=== PATIENT | female | born 1930 | race Caucasian/White ===

== ENCOUNTER → 2016-05-29 | Outpatient (CLI) | payer MEDICARE, BC ==
--- NOTE | 2016-05-29 14:15 | CT ---
EXAMINATION TYPE: CT brain wo con DATE OF EXAM: 05/29/2016 1:27 PM COMPARISON: Prior CT brain 08 June 2014 HISTORY: Headache CT DLP: 1012.70 mGycm Automated exposure control for dose reduction was used. FINDINGS: There is no acute intracranial hemorrhage, mass effect, or midline shift identified. The ventricles and sulci are within normal limits in size. Cortical atrophy is present. Periventricular white matter demyelination changes suspected. The globes are intact and the visualized sinuses are remarkable for inflammatory change in the mastoid air cells as on previous exam on the left than right.. Postop weston nges noted to the temporal bone on the right, metallic implant present on the left. Cerebral vascular calcifications are present. IMPRESSION: No acute intracranial hemorrhage, mass effect, or midline shift is seen. Postop changes, additional f indings above.
== END | disposition home or self-care (01) ==
LOC: RADCTMAIN 12:45
PROVIDERS: ATTEND Family Medicine
DX: R51 Headache (principal)
CPT/HCPCS: 70450

== ENCOUNTER → 2016-07-04 | Outpatient (CLI) | payer MEDICARE, BC ==
--- NOTE | 2016-07-04 15:02 | US ---
EXAMINATION TYPE: US venous doppler duplex LE BI DATE OF EXAM: 07/04/2016 2:46 PM COMPARISON: US in PACS CLINICAL HISTORY: I82.40 DVT,I10 HTN,. 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
--- NOTE | 2016-07-04 15:19 | US ---
EXAMINATION TYPE: US carotid duplex BILAT DATE OF EXAM: 07/04/2016 2:28 PM COMPARISON: NONE CLINICAL HISTORY: I82.40 DVT,I10 HTN,. HTN, headaches EXAM MEASUREMENTS: RIGHT: Peak Systolic Velocity (PSV) cm/sec ----- Right CCA: 63.3 ----- Right ICA: 72.1 ----- Right ECA: 50.3 ICA/CCA ratio: 1.1 RIGHT: End Diastole cm/sec ----- Right CCA: 8.4 ----- Right ICA: 15.4 ----- Right ECA: 0.0 LEFT: Peak Systolic Velocity (PSV) cm/sec ----- Left CCA: 62.5 ----- Left ICA: 99.6 ----- Left ECA: 67.7 ICA/CCA ratio: 1.6 LEFT: End Diastole cm/sec ----- Left CCA: 18.0 ----- Left ICA: 22.6 ----- Left ECA: 0.0 VERTEBRALS (direction of flow): Right Vertebral: Antegrade Left Vertebral: Antegrade No significant stenosis seen bilaterally Incidental finding right thyroid nodule 1.4 cm IMPRESSION: No evidence for hemodynamically significant stenosis. Criteria for Assigning % of Stenosis / Diameter reduction (Estimation based on the indirect measurements of the internal carotid artery velocities (ICA PSV). 1. Normal (no stenosis)=ICA PSV < 125 cm/s: ratio < 2.0: ICA EDV<40 cm/s. 2. Less than 50% stenosis=ICA PSV < 125 cm/s: ratio < 2.0: ICA EDV<40 cm/s. 3. 50 to 69% stenosis=ICA PSV of 125 to 230 cm/s: ration 2.0 ? 4.0: ICA EDV 40-100 cm/s. 4. Greater than 70% stenosis to near occlusion= ICA PSV > 230 cm/s: ratio > 4.0: ICA EDV > 100 cm/s. 5. Near occlusion= ICA PSV velocities may be low or undetectable: variable ratio and ICA EDV. 6. Total occlusion=unable to detect flow.
== END | disposition home or self-care (01) ==
LOC: RADUSWWP 14:06
PROVIDERS: ATTEND Family Medicine
DX: I82.403 Acute embolism and thrombosis of unspecified deep veins of lower extremity, bilateral (principal); I10 Essential (primary) hypertension
CPT/HCPCS: 93880; 93970

== ENCOUNTER → 2017-04-23 | Outpatient (CLI) | payer MEDICARE, BC ==
[2017-04-23 18:52] LABS: Hemoglobin A1C 6.6 % (4.0-6.0)
== END | disposition home or self-care (01) ==
LOC: LABWHC1 11:22
PROVIDERS: ATTEND Family Medicine
DX: M79.662 Pain in left lower leg (principal); E11.9 Type 2 diabetes mellitus without complications; I10 Essential (primary) hypertension
CPT/HCPCS: 36415; 83036; 85379

== ENCOUNTER → 2017-04-26 | Outpatient (CLI) | payer MEDICARE, BC ==
--- NOTE | 2017-04-26 18:23 | US ---
EXAMINATION TYPE: US venous doppler duplex LE DATE OF EXAM: 04/26/2017 6:12 PM COMPARISON: NONE CLINICAL HISTORY: R79.9 Elevated D Dimer. h/o PE 10+ years ago, no symptoms per patient SIDE PERFORMED: Bilateral TECHNIQUE: The lower extremity deep venous system is examined utilizing real time linear array sonog javed with graded compression, doppler sonography and color-flow sonography. VESSELS IMAGED: External Iliac Vein (EIV) Common Femoral Vein Deep Femoral Vein Greater Saphenous Vein * Femoral Vein Popliteal Vein Small Saphenous Vein * Proximal Calf Veins (* superficial vessels) Right Leg: Appears negative for DVT Left Leg: Appears negative for DVT IMPRESSION: Normal exam. No evidence of deep venous thrombosis in both legs.
== END | disposition home or self-care (01) ==
LOC: RADUSMAIN 17:43
PROVIDERS: ATTEND Family Medicine
DX: R79.9 Abnormal finding of blood chemistry, unspecified (principal)
CPT/HCPCS: 93970

== ENCOUNTER → 2017-12-18 | Outpatient (CLI) | payer MEDICARE, BC ==
[2017-12-18 13:25] LABS: Blood Urea Nitrogen 11 mg/dL (7-17)
--- NOTE | 2017-12-18 14:43 | CT ---
EXAMINATION TYPE: CT brain wo/w con DATE OF EXAM: 12/18/2017 COMPARISON: 05/29/2016 HISTORY: Headaches to top of head and unsteady gait x 5-[address] DLP: 2106.3mGycm CONTRAST: CT scan of the head is performed without and with IV Contrast, patient injected with 100 mL of Isovue M300. Unenhanced followed by contrast enhanced CT of the brain is submitted for evaluation. The ventricles are midline. Mild generalized atrophic changes noted. There is no evidence for intracranial hemorrha ge or extra-axial collection. No mass effects are identified. Visualized bony calvarium is intact. Contrast is administered and no enhancing lesions are detected. No pathologic enhancement is identi fied. Metallic implant left scalp region. Bilateral mastoidectomy changes identified. If symptoms pe rsist consider MRI. IMPRESSION: No acute intracranial process. No pathologic enhancement seen.
== END | disposition home or self-care (01) ==
LOC: RADCTMAIN 12:16
PROVIDERS: ATTEND Family Medicine
DX: G44.009 Cluster headache syndrome, unspecified, not intractable (principal); R26.89 Other abnormalities of gait and mobility
CPT/HCPCS: 82565; 84520; 70470; 36415; Q9967

== ENCOUNTER 2018-05-13 11:29 | Emergency (ER) | payer MEDICARE, BC ==
[2018-05-13 11:51] VITALS: RESP 18
--- NOTE | 2018-05-13 14:44 | ED ---
Fall HPI - General Chief Complaint: Fall Stated Complaint: fall, head/neck pain Time Seen by Provider: 05/13/18 14:16 Source: patient, RN notes reviewed, old records reviewed Mode of arrival: wheelchair - History of Present Illness Initial Comments: Patient is a in 87-year-old female who presents emergency department today with head and neck pain 2 days after fall. Patient states that she was not ambulating with her walker going to the bathroom. Patient reports that she tripped and fell. During that time she had multiple abrasions and skin tears and bruising over her arms and legs. Her main complaint today is that headache. She has a history of a cochlear implant which caused her to have balance issues. Patient states that she cannot receive an MRI due to this. - Related Data Home Medications Medication Instructions Recorded Confirmed Cholecalciferol [Vitamin D3] 1,000 mg PO DAILY 06/08/14 05/13/18 Magnesium Gluconate [Magonate] 500 mg PO DAILY 06/08/14 05/13/18 Omeprazole [PriLOSEC] 20 mg PO AC-BRKFST 06/08/14 05/13/18 ALPRAZolam 1 mg PO TID PRN 12/07/14 05/13/18 Docusate Sodium [Dulcolax Stool 100 mg PO DAILY PRN 12/07/14 05/13/18 Softener] 24 Hour Allergy (Unknown Otc) 1 tab PO DAILY PRN 05/13/18 05/13/18 Ibuprofen [Motrin] 800 mg PO TID 05/13/18 05/13/18 Levothyroxine Sodium [Synthroid] 25 mcg PO DAILY 05/13/18 05/13/18 Losartan-Hctz 50-12.5 mg [Hyzaar 1 tab PO DAILY 05/13/18 05/13/18 50-12.5] Previous Rx's Medication Instructions Recorded HYDROcodone/APAP 5-325MG [[place] 1 tab PO Q6HR PRN #15 tab 05/13/18 5-325] Allergies Allergy/AdvReac Type Severity Reaction Status Date / Time acetaminophen [From Vicodin] Allergy Hallucinati Verified 05/13/18 11:51 ons ciprofloxacin [From Cipro] Allergy Rash/Hives Verified 05/13/18 14:46 ciprofloxacin HCl Allergy Rash/Hives Verified 05/13/18 14:46 [From Cipro] doxycycline Allergy Rash/Hives Verified 05/13/18 14:46 esomeprazole magnesium Allergy Rash/Hives Verified 05/13/18 11:51 [From Vimovo] fluconazole Allergy Rash/Hives Verified 05/13/18 14:46 hydrocodone bitartrate Allergy Hallucinati Verified 05/13/18 14:46 [From Vicodin] ons naproxen [From Vimovo] Allergy Rash/Hives Verified 05/13/18 11:51 penicillin G Allergy Rash/Hives Verified 05/13/18 14:46 sulfamethoxazole Allergy Rash/Hives Verified 05/13/18 14:46 [From Bactrim] tramadol Allergy Unknown Verified 05/13/18 14:46 trimethoprim [From Bactrim] Allergy Rash/Hives Verified 05/13/18 14:46 levofloxacin [From Levaquin] AdvReac Itching Verified 05/13/18 14:46 mirabegron [From Myrbetriq] AdvReac HEADACHE/BLURRED Verified 05/13/18 14:46 VISION oxybutynin AdvReac BLURRED Verified 05/13/18 14:46 VISION Review of Systems ROS Statement: Those systems with pertinent positive or pertinent negative responses have been documented in the HPI. ROS Other: All systems not noted in ROS Statement are negative. Past Medical History Past Medical History: GERD/Reflux, Hearing Disorder / Deafness, Hypertension, Osteoarthritis (OA), Pulmonary Embolus (PE), Thyroid Disorder Additional Past Medical History / Comment(s): 12-07-14 admitted to [facility] with c/o chest pain. other hx:hiatal hernia, PE AFTER KNEE SX, INCONT OF URINE, DEAF RT EAR [place] LT WEARS HEARING AID,UPPER DENTURE AND WEARS GLASSES TO READ. History of Any Multi-Drug Resistant Organisms: None Reported Past Surgical History: Cholecystectomy, Heart Catheterization, Hysterectomy, Joint Replacement, Tonsillectomy Additional Past Surgical History / Comment(s): cochlear implant, acoustic tumor removed rt ear 2010, egd/colonoscopy, rt carpal tunnel, rt knee replacement, SHAMEKA CATARACTS Past Anesthesia/Blood Transfusion Reactions: No Reported Reaction Past Psychological History: Anxiety Smoking Status: Never smoker Past Alcohol Use History: Rare Past Drug Use History: None Reported - Past Family History Father Family Medical History: Dementia Mother Family Medical History: Cancer (Lung), Hypertension Additional Family Medical History / Comment(s): from lung cancer Brother(s) Family Medical History: Diabetes Mellitus Sister(s) Family Medical History: Cancer (Lung) Son(s) Family Medical History: Coronary Artery Disease (CAD) (age 39 with mitral valve repair) General Exam - General Exam Comments Initial Comments: Alert and oriented 87-year-old female. Patient appears in no significant distress. Limitations: physical limitation Head exam: Present: atraumatic, normocephalic, normal inspection Eye exam: Present: normal appearance, PERRL, EOMI. Absent: scleral icterus, conjunctival injection, periorbital swelling ENT exam: Present: normal exam, mucous membranes moist Neck exam: Present: normal inspection, tenderness (Patient is posterior spinal tenderness.). Absent: meningismus, lymphadenopathy Respiratory exam: Present: normal lung sounds bilaterally. Absent: respiratory distress, wheezes, rales, rhonchi, stridor Cardiovascular Exam: Present: regular rate, normal rhythm, normal heart sounds. Absent: systolic murmur, diastolic murmur, rubs, gallop, clicks GI/Abdominal exam: Present: soft, normal bowel sounds. Absent: distended, tenderness, guarding, rebound, rigid Extremities exam: Present: normal inspection, full ROM, normal capillary refill. Absent: tenderness, pedal edema, joint swelling, calf tenderness Back exam: Present: normal inspection Neurological exam: Present: alert, oriented X3, CN II-XII intact Psychiatric exam: Present: normal affect, normal mood Skin exam: Present: warm, dry, intact, normal color. Absent: rash Course Vital Signs 05/13/18 05/13/18 05/13/18 11:48 14:44 16:22 Temperature 97.9 F Pulse Rate 70 68 72 Respiratory 18 18 18 Rate Blood Pressure 150/81 146/72 159/63 O2 Sat by Pulse 98 96 95 Oximetry 05/13/18 17:05 Temperature 98.5 F Pulse Rate 68 Respiratory 18 Rate Blood Pressure 140/69 O2 Sat by Pulse 95 Oximetry Medical Decision Making - Medical Decision Making Patient is a 87-year-old female who presents emergency Department today with complaints of head and neck pain 2 days after fall. Patient has multiple superficial abrasions and bruising of her arm but full range of motion strep days. She is in including without difficulty. Patient has no neurological deficits. CT brain and C-spine is completed. There is evidence of a stable C2 fracture. After this was discovered Patient was placed in c-collar. Patient was started on IV fluids basic lab was obtained. Initially they had to transfer the Patient to [facility]. However did discuss the case with Dr. Stevens [facility]. He states that he is comfortable managing the Patient if she has no neurological deficits and otherwise is well. Patient will be discharged with prescription for pain medication and discharged with a perception for [place] collar. I discussed that she should remain in our cervical collar until receiving the [place] collar. Discussed prompt follow-up with Dr. Stevens. Patient agrees to treatment plan will comply. - Lab Data Result diagrams: 05/13/18 16:14 05/13/18 16:14 Lab Results 05/13/18 05/13/18 Range/Units 16:14 16:14 WBC 9.8 (3.8-10.6) k/uL RBC 4.70 (3.80-5.40) m/uL Hgb 13.0 (11.4-16.0) gm/dL Hct 41.1 (34.0-46.0) % MCV 87.4 (80.0-100.0) fL MCH 27.6 (25.0-35.0) pg MCHC 31.6 (31.0-37.0) g/dL RDW 15.0 (11.5-15.5) % Plt Count 199 (150-450) k/uL Neutrophils % 78 % Lymphocytes % 16 % Monocytes % 4 % Eosinophils % 1 % Basophils % 0 % Neutrophils # 7.6 (1.3-7.7) k/uL Lymphocytes # 1.6 (1.0-4.8) k/uL Monocytes # 0.4 (0-1.0) k/uL Eosinophils # 0.1 (0-0.7) k/uL Basophils # 0.0 (0-0.2) k/uL Sodium 134 L (137-145) mmol/L Potassium 3.7 (3.5-5.1) mmol/L Chloride 97 L (98-107) mmol/L Carbon Dioxide 34 H (22-30) mmol/L Anion Gap 3 mmol/L BUN 15 (7-17) mg/dL Creatinine 0.48 L (0.52-1.04) mg/dL Est GFR (CKD-EPI)AfAm >90 (>60 ml/min/1.73 sqM) Est GFR (CKD-EPI)NonAf 90 (>60 ml/min/1.73 sqM) Glucose 100 H (74-99) mg/dL Calcium 9.2 (8.4-10.2) mg/dL - Radiology Data Radiology results: report reviewed CT shows age-related atrophy and chronic small vessel ischemic change without acute intracranial process. CT of the C-spine shows isolated fracture noted to involve the right body of the C2 segment at its junction with transverse process. There is extension into the superior articular process. Fracture is considered stable. Disposition Clinical Impression: C2 cervical fracture Disposition: HOME SELF-CARE Condition: Good Instructions (If sedation given, give patient instructions): Cervical Fracture (ED), Soft Cervical Collar (ED) Additional Instructions: Follow-up with Dr. Stevens within the next 1-2 days. It is supposed to follow-up with Mercedes to get the cervical spine collar. Patient should take the pain medication as prescribed. Patient needs to be wearing a [place] collar at all times. Prescriptions: HYDROcodone/APAP 5-325MG [[place] 5-325] 1 tab PO Q6HR PRN #15 tab PRN Reason: Pain Is patient prescribed a controlled substance at d/c from ED?: Yes If prescribed controlled substance>3 days was MAPS reviewed?: Prescribed <3 Days If opioid is for acute pain is fill amount 7 days or less?: Yes If Rx opioid, was Start Talking consent form obtained?: Yes Referrals: Juan A Dey DO [Primary Care Provider] - 1-2 days Basilia Stevens DO [Doctor of Osteopathic Medicine] - 1-2 days Time of Disposition: 16:53
--- NOTE | 2018-05-13 15:33 | CT ---
EXAMINATION TYPE: CT brain steve wo con DATE OF EXAM: 05/13/2018 COMPARISON: 12/18/2017 HISTORY: Fall on 05/11/18. right posterior injury CT DLP: 1292.[address] of the brain was performed. The ventricles, basal cisterns and sulci overlying the cerebral convexities demonstrate mild enlargem ent. There is no evidence for intracranial hemorrhage or sulcal effacement. There is decreased attenuatio n about the periventricular white matter and deep white matter of both cerebral hemispheres, compatib le with chronic small vessel ischemia. No mass effects are seen. If symptoms persist consider MRI. Osseous calvarium is intact. IMPRESSION: 1. Age related atrophic and chronic small vessel ischemic change without acute intracranial process seen at this time. CT Cervical Spine: Unenhanced CT of the cervical spine was performed with bone and soft tissue window settings submitte d. Coronal and sagittal reconstruction is obtained. There is an isolated fracture noted to involve the right body of the C2 segment at its junction with the transverse process. There is extension into the superior articular process. Fracture is considere d stable. No additional fractures are identified. Minimal anterolisthesis of C4 on C5 measuring 2 mm may be related to severe degenerative change of the apophyseal joints. Degenerative change noted at C 5-6 moderate to severe degree with spondylosis. IMPRESSION: 1. There is an isolated fracture noted to involve the right body of the C2 segment at its junction w ith the transverse process. There is extension into the superior articular process. Fracture is consi dered stable. ER physician notified via telephone.
[2018-05-13] MEDS ORDERED: MORPHINE SULFATE 4 MG/ML SYRINGE IVP ONE (15:49)
[2018-05-13] MEDS ORDERED: SODIUM CHLORIDE 0.9% 1,000 ML IV ONE (15:50)
[2018-05-13] MEDS ORDERED: SODIUM CHLORIDE 0.9% 1,000 ML IV SCH (16:00)
[2018-05-13 16:28] LABS: Basophils % (A) 0 %; Eosinophils # (A) 0.1 k/uL (0-0.7); Eosinophils % (A) 1 %; HCT 41.1 % (34.0-46.0); Lymphocytes # (A) 1.6 k/uL (1.0-4.8); Lymphocytes % (A) 16 %; MCH 27.6 pg (25.0-35.0); MCHC 31.6 g/dL (31.0-37.0); MCV 87.4 fL (80.0-100.0); Mean Platelet Volume 6.7; Monocytes # (A) 0.4 k/uL (0-1.0); Monocytes % (A) 4 %; Neutrophils # (A) 7.6 k/uL (1.3-7.7); Neutrophils % (A) 78 %; Platelet Count 199 k/uL (150-450); WBC 9.8 k/uL (3.8-10.6)
[2018-05-13 16:37] LABS: Anion Gap 3 mmol/L; Blood Urea Nitrogen 15 mg/dL (7-17); Calcium 9.2 mg/dL (8.4-10.2); Carbon Dioxide 34 mmol/L (22-30); Chloride 97 mmol/L (98-107); Glucose 100 mg/dL (74-99); Potassium 3.7 mmol/L (3.5-5.1); Sodium 134 mmol/L (137-145)
[2018-05-13 17:06] VITALS: BP 140/69; PULSE 68; TEMP 98.5
== END 2018-05-13 17:12 | disposition home or self-care (01) ==
LOC: EC 11:29
DX: S12.100A Unspecified displaced fracture of second cervical vertebra, initial encounter for closed fracture (principal); K21.9 Gastro-esophageal reflux disease without esophagitis; I10 Essential (primary) hypertension; M19.90 Unspecified osteoarthritis, unspecified site; E07.9 Disorder of thyroid, unspecified; H91.90 Unspecified hearing loss, unspecified ear; F41.9 Anxiety disorder, unspecified; Z79.1 Long term (current) use of non-steroidal anti-inflammatories (NSAID); Z86.711 Personal history of pulmonary embolism; Z79.890 Hormone replacement therapy; Z79.899 Other long term (current) drug therapy; Z88.3 Allergy status to other anti-infective agents; Z88.0 Allergy status to penicillin; Z88.1 Allergy status to other antibiotic agents; Z88.2 Allergy status to sulfonamides; Z88.5 Allergy status to narcotic agent; Z88.8 Allergy status to other drugs, medicaments and biological substances; Z88.6 Allergy status to analgesic agent; Z96.651 Presence of right artificial knee joint; W01.0XXA Fall on same level from slipping, tripping and stumbling without subsequent striking against object, initial encounter
CPT/HCPCS: 36415; 80048; 85025; 72125; 70450; 99284; 96374; L0120; J2270

== ENCOUNTER 2018-05-27 13:12 | Emergency (ER) | payer MEDICARE, BC ==
[2018-05-27] MEDS ORDERED: KETOROLAC 30 MG/ML 1 ML VIAL IVP STA (13:29)
[2018-05-27] MEDS ORDERED: FUROSEMIDE 10 MG/ML 2 ML VIAL IV STA (13:30)
--- NOTE | 2018-05-27 13:33 | ED ---
General Adult HPI - General Chief complaint: Arrhythmia/Palpitations Stated complaint: heart concerns Time Seen by Provider: 05/27/18 13:15 Source: patient, RN notes reviewed Mode of arrival: wheelchair Limitations: no limitations - History of Present Illness Initial comments: this is an 87-year-old female who presents to the emergency department because of swollen legs. Patient states her so swollen she is unable to walk on them.patient states she has had some swelling in the past but never to this degree. Patient denies any difficulty breathing or shortness of breath. Patient denies any calf tenderness. Patient denies any chest pain. Patient denied any palpitations. son states that her heart rate was over 100 so they decided to bring her to the emergency department. Patient denies lightheadedness or dizziness. Patient denies any headache patient denies numbness weakness. Patient denies any abdominal pain. Patient denies any recent fever chills or cough per patient denies any vomiting or diarrhea. - Related Data Home Medications Medication Instructions Recorded Confirmed Cholecalciferol [Vitamin D3] 1,000 mg PO DAILY 06/08/14 05/27/18 Magnesium Gluconate [Magonate] 500 mg PO DAILY 06/08/14 05/27/18 Omeprazole [PriLOSEC] 20 mg PO AC-BRKFST 06/08/14 05/27/18 ALPRAZolam 1 mg PO TID PRN 12/07/14 05/27/18 Docusate Sodium [Dulcolax Stool 100 mg PO DAILY PRN 12/07/14 05/27/18 Softener] 24 Hour Allergy (Unknown Otc) 1 tab PO DAILY PRN 05/13/18 05/27/18 Ibuprofen [Motrin] 800 mg PO TID 05/13/18 05/27/18 Levothyroxine Sodium [Synthroid] 25 mcg PO DAILY 05/13/18 05/27/18 Losartan-Hctz 50-12.5 mg [Hyzaar 1 tab PO DAILY 05/13/18 05/27/18 50-12.5] Previous Rx's Medication Instructions Recorded Furosemide [Lasix] 20 mg PO DAILY #7 tab 05/27/18 Allergies Allergy/AdvReac Type Severity Reaction Status Date / Time acetaminophen [From Vicodin] Allergy Hallucinati Verified 05/27/18 13:40 ons ciprofloxacin [From Cipro] Allergy Rash/Hives Verified 05/27/18 13:40 ciprofloxacin HCl Allergy Rash/Hives Verified 05/27/18 13:40 [From Cipro] doxycycline Allergy Rash/Hives Verified 05/27/18 13:40 esomeprazole magnesium Allergy Rash/Hives Verified 05/27/18 13:40 [From Vimovo] fluconazole Allergy Rash/Hives Verified 05/27/18 13:40 hydrocodone bitartrate Allergy Hallucinati Verified 05/27/18 13:40 [From Vicodin] ons naproxen [From Vimovo] Allergy Rash/Hives Verified 05/27/18 13:40 penicillin G Allergy Rash/Hives Verified 05/27/18 13:40 sulfamethoxazole Allergy Rash/Hives Verified 05/27/18 13:40 [From Bactrim] tramadol Allergy Unknown Verified 05/27/18 13:40 trimethoprim [From Bactrim] Allergy Rash/Hives Verified 05/27/18 13:40 hydrocodone [From [place]] AdvReac HEADACHE Verified 05/27/18 13:42 levofloxacin [From Levaquin] AdvReac Itching Verified 05/27/18 13:40 mirabegron [From Myrbetriq] AdvReac HEADACHE/BLURRED Verified 05/27/18 13:40 VISION oxybutynin AdvReac BLURRED Verified 05/27/18 13:40 VISION Review of Systems ROS Statement: Those systems with pertinent positive or pertinent negative responses have been documented in the HPI. ROS Other: All systems not noted in ROS Statement are negative. Past Medical History Past Medical History: GERD/Reflux, Hearing Disorder / Deafness, Hypertension, Osteoarthritis (OA), Pulmonary Embolus (PE), Thyroid Disorder Additional Past Medical History / Comment(s): 12-07-14 admitted to [facility] with c/o chest pain. other hx:hiatal hernia, PE AFTER KNEE SX, INCONT OF URINE, DEAF RT EAR [place] LT WEARS HEARING AID,UPPER DENTURE AND WEARS GLASSES TO READ. History of Any Multi-Drug Resistant Organisms: None Reported Past Surgical History: Cholecystectomy, Heart Catheterization, Hysterectomy, Joint Replacement, Tonsillectomy Additional Past Surgical History / Comment(s): cochlear implant, acoustic tumor removed rt ear 2010, egd/colonoscopy, rt carpal tunnel, rt knee replacement, SHAMEKA CATARACTS Past Anesthesia/Blood Transfusion Reactions: No Reported Reaction Past Psychological History: Anxiety, Depression Smoking Status: Never smoker Past Alcohol Use History: Rare Past Drug Use History: None Reported - Past Family History Father Family Medical History: Dementia Mother Family Medical History: Cancer (Lung), Hypertension Additional Family Medical History / Comment(s): from lung cancer Brother(s) Family Medical History: Diabetes Mellitus Sister(s) Family Medical History: Cancer (Lung) Son(s) Family Medical History: Coronary Artery Disease (CAD) (age 39 with mitral valve repair) General Exam - General Exam Comments Initial Comments: GENERAL: Patient is well-developed and well-nourished. Patient is nontoxic and well- hydrated and is in milddistress. ENT: Neck is soft and supple. No significant lymphadenopathy is noted. Oropharynx is clear. Moist mucous membranes. Neck has full range of motion without eliciting any pain. EYES: The sclera were anicteric and conjunctiva were pink and moist. Extraocular movements were intact and pupils were equal round and reactive to light. Eyelids were unremarkable. PULMONARY: Unlabored respirations. Good breath sounds bilaterally. No audible rales rhonchi or wheezing was noted. CARDIOVASCULAR: patient is tachycardic at about 110 beats a minute ABDOMEN: Soft and nontender with normal bowel sounds. No palpable organomegaly was noted. There is no palpable pulsatile mass. SKIN: Skin is clear with no lesions or rashes and otherwise unremarkable. NEUROLOGIC: Patient is alert and oriented x3. Cranial nerves II through XII are grossly intact. Motor and sensory are also intact. Normal speech, volume and content. Symmetrical smile. MUSCULOSKELETAL: Normal extremities with adequate strength and full range of motion. 2+ edema bilaterally LYMPHATICS: No significant lymphadenopathy is noted PSYCHIATRIC: Normal psychiatric evaluation. Limitations: no limitations Course Vital Signs 05/27/18 05/27/18 13:15 14:00 Temperature 97.6 F Pulse Rate 110 H 89 Respiratory 22 15 Rate Blood Pressure 130/65 128/55 O2 Sat by Pulse 96 90 L Oximetry Medical Decision Making - Medical Decision Making EKG shows sinus rhythm at 94 bpm IL interval 176 QRS is 94 QT interval 354 QTC is 442. Is a poor quality EKG but there are no obvious ST segment elevations. I offered admission to the patient patient stated she wanted to go home and try the water pill at home first. I spoke with Dr. Dey he wanted the patient started on Lasix 20 mg by mouth and would follow patient up later this week. - Lab Data Result diagrams: 05/27/18 13:43 05/27/18 13:43 Lab Results 05/27/18 05/27/18 05/27/18 Range/Units 13:43 13:43 13:43 WBC 9.9 (3.8-10.6) k/uL RBC 4.67 (3.80-5.40) m/uL Hgb 13.1 (11.4-16.0) gm/dL Hct 41.1 (34.0-46.0) % MCV 87.9 (80.0-100.0) fL MCH 28.1 (25.0-35.0) pg MCHC 31.9 (31.0-37.0) g/dL RDW 15.0 (11.5-15.5) % Plt Count 362 (150-450) k/uL Neutrophils % 80 % Lymphocytes % 13 % Monocytes % 4 % Eosinophils % 1 % Basophils % 1 % Neutrophils # 7.9 H (1.3-7.7) k/uL Lymphocytes # 1.3 (1.0-4.8) k/uL Monocytes # 0.4 (0-1.0) k/uL Eosinophils # 0.1 (0-0.7) k/uL Basophils # 0.1 (0-0.2) k/uL PT (9.0-12.0) sec INR (<1.2) APTT (22.0-30.0) sec Sodium 136 L (137-145) mmol/L Potassium 3.6 (3.5-5.1) mmol/L Chloride 96 L (98-107) mmol/L Carbon Dioxide 32 H (22-30) mmol/L Anion Gap 8 mmol/L BUN 7 (7-17) mg/dL Creatinine 0.48 L (0.52-1.04) mg/dL Est GFR (CKD-EPI)AfAm >90 (>60 ml/min/1.73 sqM) Est GFR (CKD-EPI)NonAf 90 (>60 ml/min/1.73 sqM) Glucose 111 H (74-99) mg/dL Plasma Lactic Acid Sae[place] 1.4 (0.7-2.0) mmol/L Calcium 9.3 (8.4-10.2) mg/dL Total Bilirubin 1.0 (0.2-1.3) mg/dL AST 43 H (14-36) U/L ALT 45 (9-52) U/L Alkaline Phosphatase 87 (38-126) U/L NT-Pro-B Natriuret Pep pg/mL Total Protein 6.3 (6.3-8.2) g/dL Albumin 3.7 (3.5-5.0) g/dL Urine Color Urine Appearance (Clear) Urine pH (5.0-8.0) Ur Specific [place] (1.001-1.035) Urine Protein (Negative) Urine Glucose (UA) (Negative) Urine Ketones (Negative) Urine Blood (Negative) Urine Nitrite (Negative) Urine Bilirubin (Negative) Urine Urobilinogen (<2.0) mg/dL Ur Leukocyte Esterase (Negative) 05/27/18 05/27/18 05/27/18 Range/Units 13:43 13:43 14:17 WBC (3.8-10.6) k/uL RBC (3.80-5.40) m/uL Hgb (11.4-16.0) gm/dL Hct (34.0-46.0) % MCV (80.0-100.0) fL MCH (25.0-35.0) pg MCHC (31.0-37.0) g/dL RDW (11.5-15.5) % Plt Count (150-450) k/uL Neutrophils % % Lymphocytes % % Monocytes % % Eosinophils % % Basophils % % Neutrophils # (1.3-7.7) k/uL Lymphocytes # (1.0-4.8) k/uL Monocytes # (0-1.0) k/uL Eosinophils # (0-0.7) k/uL Basophils # (0-0.2) k/uL PT 10.3 (9.0-12.0) sec INR 1.0 (<1.2) APTT 21.8 L (22.0-30.0) sec Sodium (137-145) mmol/L Potassium (3.5-5.1) mmol/L Chloride (98-107) mmol/L Carbon Dioxide (22-30) mmol/L Anion Gap mmol/L BUN (7-17) mg/dL Creatinine (0.52-1.04) mg/dL Est GFR (CKD-EPI)AfAm (>60 ml/min/1.73 sqM) Est GFR (CKD-EPI)NonAf (>60 ml/min/1.73 sqM) Glucose (74-99) mg/dL Plasma Lactic Acid Sae[place] (0.7-2.0) mmol/L Calcium (8.4-10.2) mg/dL Total Bilirubin (0.2-1.3) mg/dL AST (14-36) U/L ALT (9-52) U/L Alkaline Phosphatase (38-126) U/L NT-Pro-B Natriuret Pep 136 pg/mL Total Protein (6.3-8.2) g/dL Albumin (3.5-5.0) g/dL Urine Color Light Yellow Urine Appearance Clear (Clear) Urine pH 8.0 (5.0-8.0) Ur Specific [place] 1.003 (1.001-1.035) Urine Protein Negative (Negative) Urine Glucose (UA) Negative (Negative) Urine Ketones Negative (Negative) Urine Blood Negative (Negative) Urine Nitrite Negative (Negative) Urine Bilirubin Negative (Negative) Urine Urobilinogen <2.0 (<2.0) mg/dL Ur Leukocyte Esterase Negative (Negative) Disposition Clinical Impression: Pedal edema Disposition: HOME SELF-CARE Condition: Good Instructions (If sedation given, give patient instructions): Edema (ED) Prescriptions: Furosemide [Lasix] 20 mg PO DAILY #7 tab Is patient prescribed a controlled substance at d/c from ED?: No Time of Disposition: 15:52
[2018-05-27 14:10] LABS: Basophils # (A) 0.1 k/uL (0-0.2); Basophils % (A) 1 %; Eosinophils # (A) 0.1 k/uL (0-0.7); Eosinophils % (A) 1 %; HCT 41.1 % (34.0-46.0); HGB 13.1 gm/dL (11.4-16.0); Lymphocytes # (A) 1.3 k/uL (1.0-4.8); Lymphocytes % (A) 13 %; MCH 28.1 pg (25.0-35.0); MCHC 31.9 g/dL (31.0-37.0); MCV 87.9 fL (80.0-100.0); Mean Platelet Volume 7.2; Monocytes # (A) 0.4 k/uL (0-1.0); Monocytes % (A) 4 %; Neutrophils # (A) 7.9 k/uL (1.3-7.7); Neutrophils % (A) 80 %; Platelet Count 362 k/uL (150-450); RBC 4.67 m/uL (3.80-5.40); WBC 9.9 k/uL (3.8-10.6)
[2018-05-27 14:19] LABS: ALT 45 U/L (9-52); AST 43 U/L (14-36); Albumin 3.7 g/dL (3.5-5.0); Alkaline Phosphatase 87 U/L (38-126); Anion Gap 8 mmol/L; Blood Urea Nitrogen 7 mg/dL (7-17); Calcium 9.3 mg/dL (8.4-10.2); Carbon Dioxide 32 mmol/L (22-30); Chloride 96 mmol/L (98-107); Glucose 111 mg/dL (74-99); Potassium 3.6 mmol/L (3.5-5.1); Sodium 136 mmol/L (137-145); Total Protein 6.3 g/dL (6.3-8.2)
[2018-05-27 14:26] LABS: Partial Thromboplastin Time 21.8 sec (22.0-30.0); Prothrombin Time 10.3 sec (9.0-12.0)
[2018-05-27 14:36] LABS: Appearance,Urine Clear (Clear); Bilirubin,Urine Negative (Negative); Blood,Urine Negative (Negative); Color,Urine Light Yellow; Glucose,Urine (UA) Negative (Negative); Ketones,Urine Negative (Negative); Leukocyte Esterase,Urine Negative (Negative); Nitrite,Urine Negative (Negative); Protein,Urine Negative (Negative); Specific Gravity,Urine 1.003 (1.001-1.035); Urobilinogen,Urine <2.0 mg/dL (<2.0)
--- NOTE | 2018-05-27 15:10 | XR ---
EXAMINATION TYPE: XR chest 2V DATE OF EXAM: 05/27/2018 COMPARISON: 12/07/2014 HISTORY: Intermittent chest pain and arrhythmia. Lower extremity swelling. TECHNIQUE: Frontal and lateral views of the chest are obtained. FINDINGS: Cardiomediastinal silhouette is again enlarged but similar to the prior. No focal consolid ation, pleural effusion or pneumothorax. No pulmonary vascular congestion. There is generalized osseo us demineralization and mild degenerative changes of the thoracic spine. IMPRESSION: Stable cardiomegaly with no acute cardiopulmonary process.
[2018-05-27] MEDS ORDERED: MORPHINE SULFATE 2 MG/ML SYRINGE IVP STA (15:47)
[2018-05-27 16:30] VITALS: RESP 18
[2018-05-27 16:48] VITALS: BP 108/67; PULSE 80; TEMP 97.8
== END 2018-05-27 16:50 | disposition home or self-care (01) ==
LOC: EC 13:12
DX: R60.0 Localized edema (principal); K21.9 Gastro-esophageal reflux disease without esophagitis; I10 Essential (primary) hypertension; M19.90 Unspecified osteoarthritis, unspecified site; E07.9 Disorder of thyroid, unspecified; F41.9 Anxiety disorder, unspecified; F32.9 Major depressive disorder, single episode, unspecified; Z79.890 Hormone replacement therapy; Z79.899 Other long term (current) drug therapy; Z88.6 Allergy status to analgesic agent; Z88.1 Allergy status to other antibiotic agents; Z88.8 Allergy status to other drugs, medicaments and biological substances; Z88.5 Allergy status to narcotic agent; Z88.0 Allergy status to penicillin; Z88.2 Allergy status to sulfonamides; Z96.651 Presence of right artificial knee joint
CPT/HCPCS: 36415; 83880; 80053; 83605; 85025; 85610; 85730; 81003; 87040; 87086; 71046; 99284; 96374; 96375 ×2; J1940; J1885; J2270; 87077; 87186

== ENCOUNTER 2018-07-18 17:46 | Emergency (ER) | payer MEDICARE, BC ==
--- NOTE | 2018-07-18 17:53 | ED ---
Fall HPI - General Stated Complaint: Fall Time Seen by Provider: 07/18/18 17:51 Source: RN notes reviewed, old records reviewed, Caregiver Limitations: no limitations - History of Present Illness Initial Comments: This is an 87-year-old female the ER for evaluation. Patient resents today for evaluation regards to fall. Fall with loss of consciousness. No blood thinners. Patient does have laceration to right sided occiput. Minimal bleeding. Patient complains of mild headache no specific headache now denies any other complaints of pain, no neck pain, no hip pain MD Complaint: fall -: hour(s) Fall From: standing When Fall Occurred: 1 hour [employer] Fall Witnessed: no Place Fall Occurred: home Loss of Consciousness: yes Prolonged Down Time?: no, yes Symptoms Prior to Fall: none Location: head Severity: mild Severity scale (1-10): 2 Context: tripped/slipped Associated Symptoms: denies - Related Data Home Medications Medication Instructions Recorded Confirmed Cholecalciferol [Vitamin D3] 1,000 mg PO DAILY 06/08/14 07/18/18 Magnesium Gluconate [Magonate] 500 mg PO DAILY 06/08/14 07/18/18 Omeprazole [PriLOSEC] 20 mg PO DAILY 06/08/14 07/18/18 ALPRAZolam 1 mg PO TID PRN 12/07/14 07/18/18 Docusate Sodium [Dulcolax Stool 100 mg PO DAILY PRN 12/07/14 07/18/18 Softener] 24 Hour Allergy (Unknown Otc) 1 tab PO DAILY PRN 05/13/18 07/18/18 Ibuprofen [Motrin] 800 mg PO TID 05/13/18 07/18/18 Levothyroxine Sodium [Synthroid] 25 mcg PO DAILY 05/13/18 07/18/18 Losartan-Hctz 50-12.5 mg [Hyzaar 1 tab PO DAILY 05/13/18 07/18/18 50-12.5] Fluconazole [Diflucan] 150 mg PO Q7D 07/18/18 07/18/18 Lidocaine 2% Gel [Xylocaine Jelly 1 applic TOPICAL BID 07/18/18 07/18/18 2%] Vortioxetine Hydrobromide 5 mg PO DAILY 07/18/18 07/18/18 [Trintellix] Previous Rx's Medication Instructions Recorded Furosemide [Lasix] 20 mg PO DAILY #7 tab 05/27/18 Allergies Allergy/AdvReac Type Severity Reaction Status Date / Time acetaminophen [From Vicodin] Allergy Hallucinati Verified 07/18/18 18:19 ons ciprofloxacin [From Cipro] Allergy Rash/Hives Verified 07/18/18 18:19 ciprofloxacin HCl Allergy Rash/Hives Verified 07/18/18 18:19 [From Cipro] doxycycline Allergy Rash/Hives Verified 07/18/18 18:19 esomeprazole magnesium Allergy Rash/Hives Verified 07/18/18 18:19 [From Vimovo] fesoterodine [From Toviaz] Allergy Unknown Verified 07/18/18 18:19 fluconazole Allergy Rash/Hives Verified 07/18/18 18:19 hydrocodone bitartrate Allergy Hallucinati Verified 07/18/18 18:19 [From Vicodin] ons naproxen [From Vimovo] Allergy Rash/Hives Verified 07/18/18 18:19 penicillin G Allergy Rash/Hives Verified 07/18/18 18:19 phenazopyridine Allergy Unknown Verified 07/18/18 18:19 sulfamethoxazole Allergy Rash/Hives Verified 07/18/18 18:19 [From Bactrim] tramadol Allergy Unknown Verified 07/18/18 18:19 trimethoprim [From Bactrim] Allergy Rash/Hives Verified 07/18/18 18:19 hydrocodone [From [place]] AdvReac HEADACHE Verified 07/18/18 18:19 levofloxacin [From Levaquin] AdvReac Itching Verified 07/18/18 18:19 mirabegron [From Myrbetriq] AdvReac HEADACHE/BLURRED Verified 07/18/18 18:19 VISION oxybutynin AdvReac BLURRED Verified 07/18/18 18:19 VISION Review of Systems ROS Statement: Those systems with pertinent positive or pertinent negative responses have been documented in the HPI. ROS Other: All systems not noted in ROS Statement are negative. Past Medical History Past Medical History: GERD/Reflux, Hearing Disorder / Deafness, Hypertension, Osteoarthritis (OA), Pulmonary Embolus (PE), Thyroid Disorder Additional Past Medical History / Comment(s): 12-07-14 admitted to [facility] with c/o chest pain. other hx:hiatal hernia, PE AFTER KNEE SX, INCONT OF URINE, DEAF RT EAR [place] LT WEARS HEARING AID,UPPER DENTURE AND WEARS GLASSES TO READ. History of Any Multi-Drug Resistant Organisms: None Reported Past Surgical History: Cholecystectomy, Heart Catheterization, Hysterectomy, Joint Replacement, Tonsillectomy Additional Past Surgical History / Comment(s): cochlear implant, acoustic tumor removed rt ear 2010, egd/colonoscopy, rt carpal tunnel, rt knee replacement, SHAMEKA CATARACTS Past Anesthesia/Blood Transfusion Reactions: No Reported Reaction Past Psychological History: Anxiety, Depression Smoking Status: Never smoker Past Alcohol Use History: Rare Past Drug Use History: None Reported - Past Family History Father Family Medical History: Dementia Mother Family Medical History: Cancer (Lung), Hypertension Additional Family Medical History / Comment(s): from lung cancer Brother(s) Family Medical History: Diabetes Mellitus Sister(s) Family Medical History: Cancer (Lung) Son(s) Family Medical History: Coronary Artery Disease (CAD) (age 39 with mitral valve repair) General Exam General appearance: alert, in no apparent distress Head exam: Present: normocephalic, normal inspection. Absent: atraumatic (Small scalp laceration, right occiput) Eye exam: Present: normal appearance, PERRL, EOMI. Absent: scleral icterus, conjunctival injection, periorbital swelling ENT exam: Present: normal exam, mucous membranes moist Neck exam: Present: normal inspection. Absent: tenderness, meningismus, lymphadenopathy Respiratory exam: Present: normal lung sounds bilaterally. Absent: respiratory distress, wheezes, rales, rhonchi, stridor Cardiovascular Exam: Present: regular rate, normal rhythm, normal heart sounds. Absent: systolic murmur, diastolic murmur, rubs, gallop, clicks GI/Abdominal exam: Present: soft, normal bowel sounds. Absent: distended, tenderness, guarding, rebound, rigid Extremities exam: Present: normal inspection, full ROM, normal capillary refill. Absent: tenderness, pedal edema, joint swelling, calf tenderness Back exam: Present: normal inspection Neurological exam: Present: alert, oriented X3, CN II-XII intact Psychiatric exam: Present: normal affect, normal mood Skin exam: Present: warm, dry, intact, normal color. Absent: rash Course Vital Signs 07/18/18 17:51 Temperature 98.5 F Pulse Rate 82 Respiratory 18 Rate Blood Pressure 111/52 O2 Sat by Pulse 96 Oximetry Procedures - Laceration Laceration #1 Consent Obtained: verbal consent Indication: laceration Site: scalp Size (cm): 5 Description: linear Depth: simple, single layer (Kori) Pre-repair: wound explored, irrigated extensively Type of Sutures: other ([place]) Patient Tolerated Procedure: well Medical Decision Making - Medical Decision Making 60 female the ER status post fall trip and fall. Patient does have scalp laceration repaired with kori. Patient can be discharged home - Radiology Data Radiology results: report reviewed (The brain C-spine negative for acute disease), image reviewed Disposition Clinical Impression: Fall, Laceration of scalp Disposition: HOME SELF-CARE Condition: Good Instructions (If sedation given, give patient instructions): Head Injury (ED), Staple Care (ED) Is patient prescribed a controlled substance at d/c from ED?: No Referrals: Juan A Dey DO [Primary Care Provider] - 1-2 days
[2018-07-18 17:57] VITALS: RESP 18
--- NOTE | 2018-07-18 18:52 | CT ---
EXAMINATION TYPE: CT brain steve maddox DATE OF EXAM: 07/18/2018 COMPARISON: 05/13/2018 HISTORY: Fall today. Right sided head injury. CT DLP: 1395.6 mGycm Automated exposure control for dose reduction was used. TECHNIQUE: CT scan of the head and cervical spine are performed without contrast. FINDINGS: There is metal artifact from surgery on the left temporal bone with implant. There is no mass effect nor midline shift. There is no sign of intracranial hemorrhage. The tail of the left temp oral lobe is limited. Calvarium is intact. There is no evidence of a skull fracture. There is also ri ght temporal bone surgery. Cervical vertebra have normal alignment. There is degenerative disc space narrowing at C5-6 with spur formation. Posterior elements are intact. There is hypertrophic facet arthropathy in the mid cervica l spine. The skull base is intact. IMPRESSION: Cerebral atrophy. No acute intracranial abnormality. No change. Previous surgery. Mild spondylotic changes in the lower cervical spine. No fracture. No change.
[2018-07-18 20:02] VITALS: BP 103/98; PULSE 74; TEMP 98.2
== END 2018-07-18 20:00 | disposition home or self-care (01) ==
LOC: EC 17:46
DX: S01.01XA Laceration without foreign body of scalp, initial encounter (principal); I11.0 Hypertensive heart disease with heart failure; I50.9 Heart failure, unspecified; K21.9 Gastro-esophageal reflux disease without esophagitis; M19.90 Unspecified osteoarthritis, unspecified site; E07.9 Disorder of thyroid, unspecified; F32.9 Major depressive disorder, single episode, unspecified; H91.93 Unspecified hearing loss, bilateral; Z88.0 Allergy status to penicillin; Z88.1 Allergy status to other antibiotic agents; Z88.2 Allergy status to sulfonamides; Z88.3 Allergy status to other anti-infective agents; Z88.5 Allergy status to narcotic agent; Z88.6 Allergy status to analgesic agent; Z88.8 Allergy status to other drugs, medicaments and biological substances; Z79.1 Long term (current) use of non-steroidal anti-inflammatories (NSAID); Z79.890 Hormone replacement therapy; Z79.899 Other long term (current) drug therapy; Z96.21 Cochlear implant status; Z95.818 Presence of other cardiac implants and grafts; Z96.651 Presence of right artificial knee joint; W01.0XXA Fall on same level from slipping, tripping and stumbling without subsequent striking against object, initial encounter; Y92.000 Kitchen of unspecified non-institutional (private) residence as the place of occurrence of the external cause
CPT/HCPCS: 12002; 70450; 72125; 99284

== ENCOUNTER → 2018-07-22 | Outpatient (CLI) | payer MEDICARE, BC ==
--- NOTE | 2018-07-22 16:47 | XR ---
EXAMINATION TYPE: XR Hip Bilateral Complete DATE OF EXAM: 07/22/2018 COMPARISON: 07/20/2014 HISTORY: Right hip pain, left hip pain, frequent falls TECHNIQUE: Bilateral hips are examined in 2 projections each FINDINGS: Left hip: Femoral head articulates with the acetabulum. Joint space narrowing is present. No acute fr actures are evident Right hip: Femoral head articulates with the acetabulum. Joint space is narrowed. No acute fractures evident. IMPRESSION: 1. 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
== END ==
LOC: RADXRMAIN 12:42
PROVIDERS: ATTEND Family Medicine
DX: M16.0 Bilateral primary osteoarthritis of hip (principal)
CPT/HCPCS: 73521

== ENCOUNTER 2018-07-23 09:10 | Emergency (ER) | payer MEDICARE, BC ==
--- NOTE | 2018-07-23 09:36 | ED ---
General Adult HPI - General Chief complaint: Recheck/Abnormal Lab/Rx Stated complaint: Abnormal Labs Time Seen by Provider: 07/23/18 09:18 Source: patient, RN notes reviewed, old records reviewed Mode of arrival: wheelchair Limitations: no limitations - History of Present Illness Initial comments: 87-year-old female presents for evaluation of abnormal outpatient laboratories study. Patient was told that her potassium was low, this was obtained on a b lood draw from yesterday. She has no specific complaints. She states she has had low sodium in the past but has never had any potassium issues. Denies chest pain or dyspnea. Denies fever. Denies vomiting or diarrhea. - Related Data Home Medications Medication Instructions Recorded Confirmed Cholecalciferol [Vitamin D3] 1,000 mg PO DAILY 06/08/14 07/23/18 Magnesium Gluconate [Magonate] 500 mg PO DAILY 06/08/14 07/23/18 Omeprazole [PriLOSEC] 20 mg PO DAILY 06/08/14 07/23/18 ALPRAZolam 1 mg PO TID PRN 12/07/14 07/23/18 Docusate Sodium [Dulcolax Stool 100 mg PO DAILY PRN 12/07/14 07/23/18 Softener] 24 Hour Allergy (Unknown Otc) 1 tab PO DAILY PRN 05/13/18 07/23/18 Ibuprofen [Motrin] 800 mg PO TID 05/13/18 07/23/18 Levothyroxine Sodium [Synthroid] 25 mcg PO DAILY 05/13/18 07/23/18 Losartan-Hctz 50-12.5 mg [Hyzaar 1 tab PO DAILY 05/13/18 07/23/18 50-12.5] Fluconazole [Diflucan] 150 mg PO Q7D 07/18/18 07/23/18 Lidocaine 2% Gel [Xylocaine Jelly 1 applic TOPICAL BID 07/18/18 07/23/18 2%] Vortioxetine Hydrobromide 5 mg PO DAILY 07/18/18 07/23/18 [Trintellix] Previous Rx's Medication Instructions Recorded Furosemide [Lasix] 20 mg PO DAILY #7 tab 05/27/18 Potassium Chloride ER [K-Dur 20] 20 meq PO DAILY #10 tab 07/23/18 Allergies Allergy/AdvReac Type Severity Reaction Status Date / Time acetaminophen [From Vicodin] Allergy Hallucinati Verified 07/23/18 09:45 ons ciprofloxacin [From Cipro] Allergy Rash/Hives Verified 07/23/18 09:45 ciprofloxacin HCl Allergy Rash/Hives Verified 07/23/18 09:45 [From Cipro] doxycycline Allergy Rash/Hives Verified 07/23/18 09:45 esomeprazole magnesium Allergy Rash/Hives Verified 07/23/18 09:45 [From Vimovo] fesoterodine [From Toviaz] Allergy Unknown Verified 07/23/18 09:45 fluconazole Allergy Rash/Hives Verified 07/23/18 09:45 hydrocodone bitartrate Allergy Hallucinati Verified 07/23/18 09:45 [From Vicodin] ons naproxen [From Vimovo] Allergy Rash/Hives Verified 07/23/18 09:45 penicillin G Allergy Rash/Hives Verified 07/23/18 09:45 phenazopyridine Allergy Unknown Verified 07/23/18 09:45 sulfamethoxazole Allergy Rash/Hives Verified 07/23/18 09:45 [From Bactrim] tramadol Allergy Unknown Verified 07/23/18 09:45 trimethoprim [From Bactrim] Allergy Rash/Hives Verified 07/23/18 09:45 hydrocodone [From [place]] AdvReac HEADACHE Verified 07/23/18 09:45 levofloxacin [From Levaquin] AdvReac Itching Verified 07/23/18 09:45 mirabegron [From Myrbetriq] AdvReac HEADACHE/BLURRED Verified 07/23/18 09:45 VISION oxybutynin AdvReac BLURRED Verified 07/23/18 09:45 VISION Review of Systems ROS Statement: Those systems with pertinent positive or pertinent negative responses have been documented in the HPI. ROS Other: All systems not noted in ROS Statement are negative. Past Medical History Past Medical History: GERD/Reflux, Hearing Disorder / Deafness, Hypertension, Osteoarthritis (OA), Pulmonary Embolus (PE), Thyroid Disorder Additional Past Medical History / Comment(s): 12-07-14 admitted to [facility] with c/o chest pain. other hx:hiatal hernia, PE AFTER KNEE SX, INCONT OF URINE, DEAF RT EAR [place] LT WEARS HEARING AID,UPPER DENTURE AND WEARS GLASSES TO READ. History of Any Multi-Drug Resistant Organisms: None Reported Past Surgical History: Cholecystectomy, Heart Catheterization, Hysterectomy, Joint Replacement, Tonsillectomy Additional Past Surgical History / Comment(s): cochlear implant, acoustic tumor removed rt ear 2011, egd/colonoscopy, rt carpal tunnel, rt knee replacement, SHAMEKA CATARACTS Past Anesthesia/Blood Transfusion Reactions: No Reported Reaction Past Psychological History: Anxiety, Depression Smoking Status: Never smoker Past Alcohol Use History: Rare Past Drug Use History: None Reported - Past Family History Father Family Medical History: Dementia Mother Family Medical History: Cancer (Lung), Hypertension Additional Family Medical History / Comment(s): from lung cancer Brother(s) Family Medical History: Diabetes Mellitus Sister(s) Family Medical History: Cancer (Lung) Son(s) Family Medical History: Coronary Artery Disease (CAD) (age 39 with mitral valve repair) General Exam Limitations: no limitations General appearance: alert, in no apparent distress Head exam: Present: atraumatic, normocephalic Eye exam: Present: normal appearance, PERRL ENT exam: Present: normal exam Neck exam: Present: normal inspection. Absent: tenderness, meningismus Respiratory exam: Present: normal lung sounds bilaterally. Absent: respiratory distress, wheezes Cardiovascular Exam: Present: regular rate, normal rhythm GI/Abdominal exam: Present: soft. Absent: distended, tenderness, guarding Extremities exam: Present: normal inspection, normal capillary refill. Absent: pedal edema Neurological exam: Present: alert, oriented X3, CN II-XII intact. Absent: motor sensory deficit Psychiatric exam: Present: normal affect, normal mood Skin exam: Present: warm, dry, intact. Absent: cyanosis, diaphoretic Course Vital Signs 07/23/18 09:14 Temperature 97.8 F Pulse Rate 80 Respiratory 18 Rate Blood Pressure 120/70 O2 Sat by Pulse 95 Oximetry EKG Findings - EKG Comments: EKG Findings:: EKG: Sinus rhythm with first-degree AV block, rate of 68, VA interval 210, QRS duration 102, QTC 461, no ST segment changes Medical Decision Making - Medical Decision Making 87-year-old female presenting with chief complaint of hypokalemia. Patient had abnormal outpatient laboratory testing. She was instructed to present to the emergency department for evaluation. Laboratory studies are repeated in the emergency department, she has mild hyponatremia 1:30 which is been baseline for this patient. She has potassium 3.2. This is replaced with 40 mEq oral potassium. Normal magnesium. Patient will be prescribed potassium for the next 1 week, she will follow-up with her primary care physician regarding repeat laboratory testing. - Lab Data Result diagrams: 07/23/18 09:50 07/23/18 09:50 Lab Results 07/23/18 07/23/18 Range/Units 09:50 09:50 WBC 8.7 (3.8-10.6) k/uL RBC 4.30 (3.80-5.40) m/uL Hgb 11.7 (11.4-16.0) gm/dL Hct 36.1 (34.0-46.0) % MCV 83.8 (80.0-100.0) fL MCH 27.2 (25.0-35.0) pg MCHC 32.4 (31.0-37.0) g/dL RDW 14.2 (11.5-15.5) % Plt Count 302 (150-450) k/uL Neutrophils % 78 % Lymphocytes % 13 % Monocytes % 6 % Eosinophils % 0 % Basophils % 0 % Neutrophils # 6.8 (1.3-7.7) k/uL Lymphocytes # 1.1 (1.0-4.8) k/uL Monocytes # 0.6 (0-1.0) k/uL Eosinophils # 0.0 (0-0.7) k/uL Basophils # 0.0 (0-0.2) k/uL Sodium 130 L (137-145) mmol/L Potassium 3.2 L (3.5-5.1) mmol/L Chloride 86 L (98-107) mmol/L Carbon Dioxide 39 H (22-30) mmol/L Anion Gap 5 mmol/L BUN 15 (7-17) mg/dL Creatinine 0.54 (0.52-1.04) mg/dL Est GFR (CKD-EPI)AfAm >90 (>60 ml/min/1.73 sqM) Est GFR (CKD-EPI)NonAf 86 (>60 ml/min/1.73 sqM) Glucose 137 H (74-99) mg/dL Calcium 9.1 (8.4-10.2) mg/dL Magnesium 2.0 (1.6-2.3) mg/dL Total Bilirubin 0.7 (0.2-1.3) mg/dL AST 40 H (14-36) U/L ALT 43 (9-52) U/L Alkaline Phosphatase 72 (38-126) U/L Total Protein 5.6 L (6.3-8.2) g/dL Albumin 3.3 L (3.5-5.0) g/dL Disposition Clinical Impression: Hypokalemia Disposition: HOME SELF-CARE Condition: Fair Instructions (If sedation given, give patient instructions): Hypokalemia (ED) Prescriptions: Potassium Chloride ER [K-Dur 20] 20 meq PO DAILY #10 tab Is patient prescribed a controlled substance at d/c from ED?: No Referrals: Juan A Dey DO [Primary Care Provider] - 1-2 days Time of Disposition: 10:41
[2018-07-23 10:15] LABS: Basophils % (A) 0 %; Eosinophils % (A) 0 %; HCT 36.1 % (34.0-46.0); HGB 11.7 gm/dL (11.4-16.0); Lymphocytes # (A) 1.1 k/uL (1.0-4.8); Lymphocytes % (A) 13 %; MCH 27.2 pg (25.0-35.0); MCHC 32.4 g/dL (31.0-37.0); MCV 83.8 fL (80.0-100.0); Mean Platelet Volume 7.2; Monocytes # (A) 0.6 k/uL (0-1.0); Monocytes % (A) 6 %; Neutrophils # (A) 6.8 k/uL (1.3-7.7); Neutrophils % (A) 78 %; Platelet Count 302 k/uL (150-450); RDW 14.2 % (11.5-15.5); WBC 8.7 k/uL (3.8-10.6)
[2018-07-23 10:26] LABS: ALT 43 U/L (9-52); AST 40 U/L (14-36); Albumin 3.3 g/dL (3.5-5.0); Alkaline Phosphatase 72 U/L (38-126); Anion Gap 5 mmol/L; Blood Urea Nitrogen 15 mg/dL (7-17); Calcium 9.1 mg/dL (8.4-10.2); Carbon Dioxide 39 mmol/L (22-30); Chloride 86 mmol/L (98-107); Glucose 137 mg/dL (74-99); Potassium 3.2 mmol/L (3.5-5.1); Sodium 130 mmol/L (137-145); Total Bilirubin 0.7 mg/dL (0.2-1.3); Total Protein 5.6 g/dL (6.3-8.2)
[2018-07-23] MEDS ORDERED: POTASSIUM CHLORIDE ER 20 MEQ TAB.ER PO STA (10:40)
[2018-07-23 11:31] VITALS: BP 111/60; PULSE 61; RESP 20; TEMP 97.6
== END 2018-07-23 11:31 | disposition home or self-care (01) ==
LOC: EC 09:10
DX: E87.6 Hypokalemia (principal); E87.1 Hypo-osmolality and hyponatremia; K21.9 Gastro-esophageal reflux disease without esophagitis; I10 Essential (primary) hypertension; E07.9 Disorder of thyroid, unspecified; M19.90 Unspecified osteoarthritis, unspecified site; F41.9 Anxiety disorder, unspecified; F32.9 Major depressive disorder, single episode, unspecified; Z95.818 Presence of other cardiac implants and grafts; Z96.651 Presence of right artificial knee joint; Z79.1 Long term (current) use of non-steroidal anti-inflammatories (NSAID); Z79.890 Hormone replacement therapy; Z79.899 Other long term (current) drug therapy; Z88.6 Allergy status to analgesic agent; Z88.1 Allergy status to other antibiotic agents; Z88.8 Allergy status to other drugs, medicaments and biological substances; Z88.5 Allergy status to narcotic agent; Z88.0 Allergy status to penicillin; Z88.2 Allergy status to sulfonamides
CPT/HCPCS: 36415; 80053; 83735; 85025; 93005; 99284

== ENCOUNTER → 2018-10-30 | Outpatient (CLI) | payer MEDICARE, BC ==
--- NOTE | 2018-10-30 12:35 | MM ---
Reason for exam: screening (asymptomatic). Last mammogram was performed 3 years and 6 months ago. History: Patient is postmenopausal. Cyst aspiration of the right breast, 1993. Took estrogen beginning at age 60. Physical Findings: A clinical breast exam by your physician is recommended on an annual basis and results should be correlated with mammographic findings. MG Screening Mammo w CAD Bilateral CC and MLO view(s) were taken. Prior study comparison: May 17, 2015, bilateral MG screening mammo w CAD. April 23, 2014, bilateral MG screening mammo w CAD. The breast tissue is heterogeneously dense. This may lower the sensitivity of mammography. Benign appearing bilateral calcifications. No suspicious abnormality. No significant changes when compared with prior studies. ASSESSMENT: Benign, BI-RAD 2 RECOMMENDATION: Routine screening mammogram of both breasts in 1 year.
== END | disposition home or self-care (01) ==
LOC: RADMAMWWP 11:05
PROVIDERS: ATTEND Family Medicine
DX: Z12.31 Encounter for screening mammogram for malignant neoplasm of breast (principal)
CPT/HCPCS: 77067

== ENCOUNTER → 2018-11-10 | Outpatient (CLI) | payer MEDICARE, BC | END | disposition home or self-care (01) | LOC: LABWHC1 11:11 | PROVIDERS: ATTEND Family Medicine | DX: R19.7 Diarrhea, unspecified (principal) | CPT/HCPCS: 87045; 87046; 87328; 87329 ==

== ENCOUNTER → 2019-08-26 | Outpatient (CLI) | payer MEDICARE, BC ==
[2019-08-26 12:55] LABS: HCT 37.9 % (34.0-46.0); HGB 12.6 gm/dL (11.4-16.0); MCH 28.3 pg (25.0-35.0); MCHC 33.3 g/dL (31.0-37.0); Mean Platelet Volume 8.6; Platelet Count 318 k/uL (150-450); RBC 4.46 m/uL (3.80-5.40); RDW 13.5 % (11.5-15.5); WBC 10.5 k/uL (3.8-10.6)
[2019-08-26 13:23] LABS: Appearance,Urine Cloudy (Clear); Bacteria,Urine Many /hpf; Bilirubin,Urine Negative (Negative); Blood,Urine Negative (Negative); Color,Urine Light Yellow; Glucose,Urine (UA) Negative (Negative); Hyaline Casts,Urine 36 /lpf (0-2); Ketones,Urine Negative (Negative); Leukocyte Esterase,Urine Moderate (Negative); Mucus,Urine Rare /hpf; Nitrite,Urine Negative (Negative); PH, Urine 5.5 (5.0-8.0); Protein,Urine Negative (Negative); RBC,Urine <1 /hpf (0-5); Squamous Epithelial Cell,Urine 1 /hpf (0-4); Urobilinogen,Urine <2.0 mg/dL (<2.0); WBC,Urine 7 /hpf (0-5)
[2019-08-26 18:56] LABS: African American GFR (CKD) 52.6 (60.0-200.0); Albumin 4.2 g/dL (3.80-4.90); Albumin/Globulin Ratio 2.21 (1.60-3.17); Anion Gap 11.8 mmol/L (4.00-12.00); BUN/Creat Ratio 27.27 Ratio (12.00-20.00); Carbon Dioxide 32.2 mmol/L (21.6-31.8); Globulin 1.9 g/dL (1.6-3.3); Non-African American GFR(CKD) 45.4 (60.0-200.0); Potassium 3.2 mmol/L (3.5-5.5); Total Bilirubin 0.4 mg/dL (0.2-1.2); Total Protein 6.1 g/dL (6.2-8.2)
== END | disposition home or self-care (01) ==
LOC: LABWHC1 11:28
PROVIDERS: ATTEND Family Medicine
DX: I50.9 Heart failure, unspecified (principal); R53.1 Weakness; R32 Unspecified urinary incontinence; E87.6 Hypokalemia
CPT/HCPCS: 36415; 80053; 81001; 85027

== ENCOUNTER 2019-08-28 15:16 | Inpatient (IN) | payer MEDICARE, BC ==
[2019-08-28] MEDS ORDERED: SODIUM CHLORIDE 0.9% 500 ML 500 ML IV ONE (15:47)
[2019-08-28] MEDS: SODIUM CHLORIDE 0.9% 1,000 ML IV SCH (15:55)
[2019-08-28 16:11] LABS: Basophils # (A) 0.1 k/uL (0-0.2); Basophils % (A) 1 %; Eosinophils # (A) 0.1 k/uL (0-0.7); Eosinophils % (A) 1 %; HCT 35.5 % (34.0-46.0); HGB 11.9 gm/dL (11.4-16.0); Lymphocytes # (A) 1.8 k/uL (1.0-4.8); Lymphocytes % (A) 17 %; MCH 27.6 pg (25.0-35.0); MCHC 33.5 g/dL (31.0-37.0); MCV 82.4 fL (80.0-100.0); Mean Platelet Volume 8.6; Monocytes # (A) 0.7 k/uL (0-1.0); Monocytes % (A) 7 %; Neutrophils # (A) 7.3 k/uL (1.3-7.7); Neutrophils % (A) 72 %; Platelet Count 305 k/uL (150-450); RBC 4.31 m/uL (3.80-5.40); RDW 13.1 % (11.5-15.5); WBC 10.2 k/uL (3.8-10.6)
[2019-08-28 16:21] LABS: ALT 25 U/L (4-34); AST 39 U/L (14-36); African American GFR (CKD) >90 (>60 ml/min/1.73 sqM); Albumin 3.7 g/dL (3.5-5.0); Alkaline Phosphatase 66 U/L (38-126); Anion Gap 9 mmol/L; Blood Urea Nitrogen 27 mg/dL (7-17); Calcium 8.9 mg/dL (8.4-10.2); Carbon Dioxide 35 mmol/L (22-30); Glucose 124 mg/dL (74-99); Magnesium 1.7 mg/dL (1.6-2.3); Non-African American GFR(CKD) 80 (>60 ml/min/1.73 sqM); Total Bilirubin 0.4 mg/dL (0.2-1.3); Total Protein 6.2 g/dL (6.3-8.2)
--- NOTE | 2019-08-28 16:21 | CT ---
EXAMINATION TYPE: CT brain wo con DATE OF EXAM: 08/28/2019 COMPARISON: 07/18/2018 INDICATION: weakness and headache DLP: 1076.4 mGycm, Automated exposure control for dose reduction was used. CONTRAST: None CT of the brain is performed utilizing 3 mm thick sections through the posterior fossa and 3 mm thick sections through the remaining calvarium. Study is performed within 24 hours of arrival to the hosp [facility]. Cochlear implant is present on the left. This causes beam hardening artifact in some limitation. No abnormal hyperdensity is present to suggest an acute intracranial hemorrhage. No mass lesion is evident. No acute infarcts are evident. Ventricles and sulci are appropriate for the patient age. Paranasal sinuses within the [id number] are clear. Bilateral mastoidectomies been performed. IMPRESSIONS: 1. No acute intracranial process.
[2019-08-28 16:32] LABS: Sodium 118 mmol/L (137-145)
[2019-08-28 16:33] LABS: Chloride 74 mmol/L (98-107)
[2019-08-28 16:37] LABS: Appearance,Urine Clear (Clear); Bacteria,Urine Rare /hpf; Bilirubin,Urine Negative (Negative); Blood,Urine Negative (Negative); Color,Urine Light Yellow; Glucose,Urine (UA) Negative (Negative); Ketones,Urine Negative (Negative); Leukocyte Esterase,Urine Small (Negative); Nitrite,Urine Negative (Negative); PH, Urine 7.5 (5.0-8.0); Protein,Urine Negative (Negative); RBC,Urine 1 /hpf (0-5); Specific Gravity,Urine 1.006 (1.001-1.035); Urobilinogen,Urine <2.0 mg/dL (<2.0); WBC,Urine 2 /hpf (0-5)
[2019-08-28] MEDS ORDERED: POTASSIUM CHLORIDE ER 10 MEQ TAB.ER.PRT PO STA (16:48)
[2019-08-28] MEDS ORDERED: NALOXONE 0.4 MG/ML 1 ML VIAL IV PRN (16:51)
--- NOTE | 2019-08-28 16:51 | ED ---
Recheck HPI - General Chief Complaint: Recheck/Abnormal Lab/Rx Stated Complaint: dehydration/abnormal labs Time Seen by Provider: 08/28/19 15:25 Source: patient, EMS Mode of arrival: EMS Limitations: no limitations - History of Present Illness Initial Comments: 88yo female presents today for chief complaint of weakness and frequent falls low potassium. Patient states that she was told she had abnormal labs were primary care provider and sent to the ER for evaluation she states that was potassium. Patient states she takes to diuretics. Patient states she feels like she is very dehydrated. Patient states she has a headache and some nausea. Patient is AAOx3. Patient denies seizure like activity. Patient denies any additional complaints, denies visual changes, vomiting, diarrhea, abdominal pain, chest pain or SOB. Patient VS stable on arrival. - Related Data Home Medications Medication Instructions Recorded Confirmed Cholecalciferol [Vitamin D3 (25 1,000 mg PO DAILY 06/08/14 07/23/18 Mcg = 1000 Iu)] Magnesium Gluconate [Magonate] 500 mg PO DAILY 06/08/14 07/23/18 Omeprazole [PriLOSEC] 20 mg PO DAILY 06/08/14 07/23/18 ALPRAZolam 1 mg PO TID PRN 12/07/14 07/23/18 Docusate Sodium [Dulcolax Stool 100 mg PO DAILY PRN 12/07/14 07/23/18 Softener] 24 Hour Allergy (Unknown Otc) 1 tab PO DAILY PRN 05/13/18 07/23/18 Ibuprofen [Motrin] 800 mg PO TID 05/13/18 07/23/18 Levothyroxine Sodium [Synthroid] 25 mcg PO DAILY 05/13/18 07/23/18 Losartan-Hctz 50-12.5 mg [Hyzaar 1 tab PO DAILY 05/13/18 07/23/18 50-12.5] Fluconazole [Diflucan] 150 mg PO Q7D 07/18/18 07/23/18 Lidocaine 2% Gel [Xylocaine Jelly 1 applic TOPICAL BID 07/18/18 07/23/18 2%] Vortioxetine Hydrobromide 5 mg PO DAILY 07/18/18 07/23/18 [Trintellix] Previous Rx's Medication Instructions Recorded Furosemide [Lasix] 20 mg PO DAILY #7 tab 05/27/18 Potassium Chloride ER [K-Dur 20] 20 meq PO DAILY #10 tab 07/23/18 Allergies Allergy/AdvReac Type Severity Reaction Status Date / Time acetaminophen [From Vicodin] Allergy Hallucinati Verified 07/23/18 09:45 ons ciprofloxacin [From Cipro] Allergy Rash/Hives Verified 07/23/18 09:45 ciprofloxacin HCl Allergy Rash/Hives Verified 07/23/18 09:45 [From Cipro] doxycycline Allergy Rash/Hives Verified 07/23/18 09:45 esomeprazole magnesium Allergy Rash/Hives Verified 07/23/18 09:45 [From Vimovo] fesoterodine [From Toviaz] Allergy Unknown Verified 07/23/18 09:45 fluconazole Allergy Rash/Hives Verified 07/23/18 09:45 hydrocodone bitartrate Allergy Hallucinati Verified 07/23/18 09:45 [From Vicodin] ons naproxen [From Vimovo] Allergy Rash/Hives Verified 07/23/18 09:45 penicillin G Allergy Rash/Hives Verified 07/23/18 09:45 phenazopyridine Allergy Unknown Verified 07/23/18 09:45 sulfamethoxazole Allergy Rash/Hives Verified 07/23/18 09:45 [From Bactrim] tramadol Allergy Unknown Verified 07/23/18 09:45 trimethoprim [From Bactrim] Allergy Rash/Hives Verified 07/23/18 09:45 hydrocodone [From [place]] AdvReac HEADACHE Verified 07/23/18 09:45 levofloxacin [From Levaquin] AdvReac Itching Verified 07/23/18 09:45 mirabegron [From Myrbetriq] AdvReac HEADACHE/BLURRED Verified 07/23/18 09:45 VISION oxybutynin AdvReac BLURRED Verified 07/23/18 09:45 VISION Review of Systems ROS Statement: Those systems with pertinent positive or pertinent negative responses have been documented in the HPI. ROS Other: All systems not noted in ROS Statement are negative. Past Medical History Past Medical History: GERD/Reflux, Hearing Disorder / Deafness, Hypertension, Osteoarthritis (OA), Pulmonary Embolus (PE), Thyroid Disorder Additional Past Medical History / Comment(s): 12-07-14 admitted to [facility] with c/o chest pain. other hx:hiatal hernia, PE AFTER KNEE SX, INCONT OF URINE, DEAF RT EAR [place] LT WEARS HEARING AID,UPPER DENTURE AND WEARS GLASSES TO READ. History of Any Multi-Drug Resistant Organisms: None Reported Past Surgical History: Cholecystectomy, Heart Catheterization, Hysterectomy, Joint Replacement, Tonsillectomy Additional Past Surgical History / Comment(s): cochlear implant, acoustic tumor removed rt ear 2010, egd/colonoscopy, rt carpal tunnel, rt knee replacement, SHAMEKA CATARACTS Past Anesthesia/Blood Transfusion Reactions: No Reported Reaction Past Psychological History: Anxiety, Depression Smoking Status: Never smoker Past Alcohol Use History: Rare Past Drug Use History: None Reported - Past Family History Father Family Medical History: Dementia Mother Family Medical History: Cancer (Lung), Hypertension Additional Family Medical History / Comment(s): from lung cancer Brother(s) Family Medical History: Diabetes Mellitus Sister(s) Family Medical History: Cancer (Lung) Son(s) Family Medical History: Coronary Artery Disease (CAD) (age 39 with mitral valve repair) General Exam - General Exam Comments Initial Comments: General: The patient is awake and alert, in no distress Eye: Pupils are equal, round and reactive to light, extra-ocular movements are intact. No nystagmus. There is normal conjunctiva bilaterally. No signs of icterus. Ears, nose, mouth and throat: There are very dry mucous membranes and no oral lesions. Neck: The neck is supple, there is no tenderness or JVD. Cardiovascular: There is a regular rate and rhythm. No murmur, rub or gallop is appreciated. Respiratory: Lungs are clear to auscultation, respirations are non-labored, breath sounds are equal. No wheezes, stridor, rales, or rhonchi. Gastrointestinal: Soft, non-distended, non-tender abdomen without masses or organomegaly noted. There is no rebound or guarding present. Musculoskeletal: Normal ROM, no tenderness. Strength 5/5. Sensation intact. Radial pulses equal bilaterally 2+. Neurological: A&O x 3. CN II-XII intact grossly, There are no obvious motor or sensory deficits. Coordination appears grossly intact. Speech is normal. Skin: Skin is warm and dry and no rashes or lesions are noted. No LE edema. Psychiatric: Cooperative, appears fatigued. Limitations: no limitations Course Vital Signs 08/28/19 15:18 Temperature 97.9 F Pulse Rate 70 Respiratory 18 Rate Blood Pressure 129/65 O2 Sat by Pulse 97 Oximetry Medical Decision Making - Medical Decision Making 88yo female presenting to the ER for abnormal labs. CC of weakness, headache, nausea, falls. CT (-) for intracranial process from fall. Moderate-severe hyponatremia. Low potassium. Patient appears dehydrated. Prescribed multiple diuretics-possible cause. Will check urine studies additional serum studies. Attending Dr. Puga consulted ICU physician Dr. Batista who states he is comfortable with patient on telemetry floor. Patient will be admitted with IVF/hydration, monitoring further investigation of electrolyte derangements. - Lab Data Result diagrams: 08/28/19 15:50 08/28/19 15:50 Lab Results 08/28/19 08/28/19 08/28/19 Range/Units 15:50 15:50 16:15 WBC 10.2 (3.8-10.6) k/uL RBC 4.31 (3.80-5.40) m/uL Hgb 11.9 (11.4-16.0) gm/dL Hct 35.5 (34.0-46.0) % MCV 82.4 (80.0-100.0) fL MCH 27.6 (25.0-35.0) pg MCHC 33.5 (31.0-37.0) g/dL RDW 13.1 (11.5-15.5) % Plt Count 305 (150-450) k/uL Neutrophils % 72 % Lymphocytes % 17 % Monocytes % 7 % Eosinophils % 1 % Basophils % 1 % Neutrophils # 7.3 (1.3-7.7) k/uL Lymphocytes # 1.8 (1.0-4.8) k/uL Monocytes # 0.7 (0-1.0) k/uL Eosinophils # 0.1 (0-0.7) k/uL Basophils # 0.1 (0-0.2) k/uL Sodium 118 L* (137-145) mmol/L Potassium 3.0 L (3.5-5.1) mmol/L Chloride 74 L* (98-107) mmol/L Carbon Dioxide 35 H (22-30) mmol/L Anion Gap 9 mmol/L BUN 27 H (7-17) mg/dL Creatinine 0.66 (0.52-1.04) mg/dL Est GFR (CKD-EPI)AfAm >90 (>60 ml/min/1.73 sqM) Est GFR (CKD-EPI)NonAf 80 (>60 ml/min/1.73 sqM) Glucose 124 H (74-99) mg/dL Calcium 8.9 (8.4-10.2) mg/dL Magnesium 1.7 (1.6-2.3) mg/dL Total Bilirubin 0.4 (0.2-1.3) mg/dL AST 39 H (14-36) U/L ALT 25 (4-34) U/L Alkaline Phosphatase 66 (38-126) U/L Total Protein 6.2 L (6.3-8.2) g/dL Albumin 3.7 (3.5-5.0) g/dL Urine Color Light Yellow Urine Appearance Clear (Clear) Urine pH 7.5 (5.0-8.0) Ur Specific [place] 1.006 (1.001-1.035) Urine Protein Negative (Negative) Urine Glucose (UA) Negative (Negative) Urine Ketones Negative (Negative) Urine Blood Negative (Negative) Urine Nitrite Negative (Negative) Urine Bilirubin Negative (Negative) Urine Urobilinogen <2.0 (<2.0) mg/dL Ur Leukocyte Esterase Small H (Negative) Urine RBC 1 (0-5) /hpf Urine WBC 2 (0-5) /hpf Urine Bacteria Rare H (None) /hpf Disposition Clinical Impression: Hyponatremia, Headache, Nausea, Weakness, Hypokalemia, Hypochloremia Disposition: ADMITTED IP TO THIS [facility] Condition: Serious Is patient prescribed a controlled substance at d/c from ED?: No Referrals: Juan A Dey DO [Primary Care Provider] - 1-2 days Time of Disposition: 16:51 Decision to Admit Reason: Admit from EC Decision Date: 08/28/19 Decision Time: 16:51
[2019-08-28] MEDS ORDERED: ALPRAZolam 1 MG TAB PO STA (17:07)
[2019-08-28] MEDS: POTASSIUM CHLORIDE 10 MEQ in WATER FOR INJECTION 1 100ML.BAG IVPB SCH ×4 (17:21→22:23)
[2019-08-28] MEDS ORDERED: ACETAMINOPHEN TAB 325 MG TAB PO PRN (19:52)
[2019-08-28] MEDS ORDERED: DOCUSATE 100 MG CAP PO PRN (21:13)
[2019-08-29] MEDS: LEVOTHYROXINE 25 MCG TAB PO SCH (06:05)
[2019-08-29 06:56] LABS: ALT 26 U/L (4-34); AST 39 U/L (14-36); African American GFR (CKD) >90 (>60 ml/min/1.73 sqM); Albumin 3.3 g/dL (3.5-5.0); Alkaline Phosphatase 56 U/L (38-126); Anion Gap 7 mmol/L; Blood Urea Nitrogen 14 mg/dL (7-17); Calcium 9.1 mg/dL (8.4-10.2); Carbon Dioxide 29 mmol/L (22-30); Chloride 90 mmol/L (98-107); Glucose 120 mg/dL (74-99); Magnesium 1.9 mg/dL (1.6-2.3); Non-African American GFR(CKD) >90 (>60 ml/min/1.73 sqM); Phosphorus 3.3 mg/dL (2.5-4.5); Potassium 3.6 mmol/L (3.5-5.1); Sodium 126 mmol/L (137-145); Total Bilirubin 0.6 mg/dL (0.2-1.3); Total Protein 5.8 g/dL (6.3-8.2); Uric Acid 3.3 mg/dL (3.7-7.4)
[2019-08-29] MEDS: CHOLECALCIFEROL 1,000 UNIT TAB PO SCH (08:39)
[2019-08-29] MEDS: LOSARTAN 50 MG TAB PO SCH (08:39)
[2019-08-29] MEDS: Omeprazole Magnesium [Prilosec Otc] 20 MG PO SCH (08:40)
[2019-08-29] MEDS: Mirabegron [Myrbetriq] 50 MG PO SCH (08:40)
[2019-08-29] MEDS ORDERED: BACLOFEN 10 MG TAB PO PRN (12:11)
[2019-08-29] MEDS ORDERED: Acetaminophen-Codeine 300-30mg TAB PO PRN (12:12)
[2019-08-29] MEDS: SODIUM CHLORIDE 0.9% 1,000 ML IV SCH (12:32)
[2019-08-29] MEDS ORDERED: SODIUM CHLORIDE 0.9% 1,000 ML IV SCH (13:00)
--- NOTE | 2019-08-29 13:52 | P.HPIM ---
History of Present Illness H&P Date: 08/28/19 Chief Complaint: Severe hyponatremia, multiple falls, abnormal balance and gait, hypertensio 88-year-old female one of Dr. Dey patient was seen urologist at [facility] named Dr. Parks and seen an ENT with long-standing history of acoustic neuroma surgery continue to have severe abnormal balance and gait with severe hearing loss. Apparently patient went to see her urologist and treated for urinary tract infection did not feel good was in to see Dr. Lomas on Saturday had more blood test and exam showed severe abnormal balance and gait, surprisingly her blood test shows severe hyponatremia with sodium is 118. Was instructed to come to the emergency department be admitted to the hospital. Also patient apparently seen Dr. Duque on Saturday and had steroid injection in the left knee for severe arthritis and worsening symptoms. Patient declined any excessive amount of water consumption she does 36 ounce of fluid and 2 cups of tea every day according to her no addition diuretics she is already on 2 diuretics previously and more dry dehydrated lately. Review of Systems CONSTITUTIONAL: Well-developed no acute respiratory distress. EYES: No icterus sclerae, no conjunctivitis. History of acoustic neuroma and severe abnormal balance and gait with multiple episode of equilibrium problem EARS, NOSE, MOUTH, THROAT, and FACE: No sore throat, lymphadenopathy, carotid bruits or deformity. RESPIRATORY: No SOB cough or wheezes. CARDIOVASCULAR: No CP, Palpitation, PND, Orthopnea, or angina. GASTROINTESTINAL: No Abd pain, Nausea or vomiting, no Diarrhea or constipation, No GI Bleed, no distention or masses. GENITOURINARY: Negative for Hematuria or UTI, no kidney stones. INTEGUMENT/BREAST: Negative for any muscular injury with mild osteoarthritis.. HEMATOLOGIC/LYMPHATIC: Negative for bleed or purpura. Chronic history of anemia MUSCULOSKELTAL: Negative for Myalgia or arthralgia. Severe arthritis of the left knee NEURLOGICAL: No LOC, Sz or syncope, positive dizziness with abnormal balance and gait. BEHAVIORAL/PSYCH: Negative. ENDOCRINE: Negative. Past Medical History Past Medical History: GERD/Reflux, Hearing Disorder / Deafness, Hypertension, Osteoarthritis (OA), Pulmonary Embolus (PE), Thyroid Disorder Additional Past Medical History / Comment(s): 12-07-14 admitted to [facility] with c/o chest pain. 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 History of Any Multi-Drug Resistant Organisms: None Reported Past Surgical History: Cholecystectomy, Heart Catheterization, Hysterectomy, Joint Replacement, Tonsillectomy Additional Past Surgical History / Comment(s): cochlear implant, acoustic tumor removed rt ear 2010, egd/colonoscopy, rt carpal tunnel, rt knee replacement, SHAMEKA CATARACTS Past Anesthesia/Blood Transfusion Reactions: No Reported Reaction Past Psychological History: Anxiety, Depression Smoking Status: Never smoker Past Alcohol Use History: Rare Past Drug Use History: None Reported - Past Family History Father Family Medical History: Dementia Mother Family Medical History: Cancer, Hypertension Additional Family Medical History / Comment(s): from lung cancer Brother(s) Family Medical History: Diabetes Mellitus Sister(s) Family Medical History: Cancer Son(s) Family Medical History: Coronary Artery Disease (CAD) Medications and Allergies Home Medications Medication Instructions Recorded Confirmed Type Cholecalciferol [Vitamin D3 (25 1,000 mg PO DAILY 06/08/14 08/28/19 History Mcg = 1000 Iu)] ALPRAZolam 1 mg PO HS 12/07/14 08/28/19 History Docusate Sodium [Dulcolax Stool 100 mg PO DAILY PRN 12/07/14 08/28/19 History Softener] 24 Hour Allergy (Unknown Otc) 1 tab PO DAILY PRN 05/13/18 08/28/19 History Ibuprofen [Motrin] 800 mg PO TID 05/13/18 08/28/19 History Levothyroxine Sodium [Synthroid] 25 mcg PO DAILY 05/13/18 08/28/19 History Furosemide [Lasix] 20 mg PO DAILY #7 tab 05/27/18 08/28/19 Rx Potassium Chloride ER [K-Dur 20] 20 meq PO DAILY #10 tab 07/23/18 08/28/19 Rx Hydrochlorothiazide [Hydrodiuril] 12.5 mg PO DAILY 08/28/19 08/28/19 History Losartan [Cozaar] 50 mg PO DAILY 08/28/19 08/28/19 History Mirabegron [Myrbetriq] 50 mg PO DAILY 08/28/19 08/28/19 History Omeprazole Magnesium [PriLOSEC OTC] 20 mg PO DAILY 08/28/19 08/28/19 History Allergies Allergy/AdvReac Type Severity Reaction Status Date / Time ciprofloxacin [From Cipro] Allergy Rash/Hives/ Verified 08/28/19 17:24 Nausea ciprofloxacin HCl Allergy Rash/Hives/ Verified 08/28/19 17:24 [From Cipro] Nausea doxycycline Allergy Rash/Hives Verified 08/28/19 17:24 esomeprazole magnesium Allergy Rash/Hives Verified 08/28/19 17:24 [From Vimovo] fesoterodine [From Toviaz] Allergy Unknown Verified 08/28/19 17:24 fluconazole Allergy Rash/Hives Verified 08/28/19 17:24 hydrocodone bitartrate Allergy Hallucinati Verified 08/28/19 17:24 [From Vicodin] ons naproxen [From Vimovo] Allergy Rash/Hives Verified 08/28/19 17:24 penicillin G Allergy Rash/Hives Verified 08/28/19 17:24 sulfamethoxazole Allergy Rash/Hives Verified 08/28/19 17:24 [From Bactrim] tramadol Allergy Unknown Verified 08/28/19 17:24 trimethoprim [From Bactrim] Allergy Rash/Hives Verified 08/28/19 17:24 hydrocodone [From [place]] AdvReac HEADACHE Verified 08/28/19 17:24 levofloxacin [From Levaquin] AdvReac Itching Verified 08/28/19 17:24 mirabegron [From Myrbetriq] AdvReac HEADACHE/BLURRED Verified 08/28/19 17:24 VISION oxybutynin AdvReac BLURRED Verified 08/28/19 17:24 VISION phenazopyridine AdvReac Itching Verified 08/28/19 17:24 Physical Exam Vitals: Vital Signs Temp Pulse Pulse Resp BP BP Pulse Ox 08/28/19 19:20 98 F 66 18 128/67 98 08/28/19 18:27 97.9 F 63 18 132/50 98 08/28/19 17:48 98.0 F 74 18 124/74 96 08/28/19 15:18 97.9 F 70 18 129/65 97 Intake and Output 08/28/19 08/28/19 08/28/19 06:59 14:59 22:59 Other: # Voids 2 Weight 72.575 kg General Appearance: Alert, cooperative, no distress, appears stated age. Neck HEENT: Supple, no lymphadenopathy, no thyroid enlargement, no carotid bruits. Lungs: Clear to auscultation without crackles or wheezes no rhonchi, no deformity. Chest Wall: Chest wall normal expansion with deep inspiration no tenderness and no deformity was found on exam, no costochondral pain or discomfort. Heart: Regular rate and rhythm, S1, S2 normal, no murmur, rub or gallop. Back: Symmetric, no curvature, ROM normal, no CVA tenderness. Abdomen: Soft, non-tender, bowel sounds active all four quadrants, no masses, no organomegaly. Extremities: Trace edema slight scar tissue of the left side with mild bruise from needle from arthrocentesis. Pulses: 2+ and symmetric. Skin: Skin color, texture, tugor normal, no rashes or lesions. Neurologic: Alert oriented x3 cranial nerves II through XII intact, no motor deficit, no abnormal balance or gait. Results CBC & Chem 7: 08/28/19 15:50 08/29/19 06:19 Labs: Abnormal Lab Results - Last 24 Hours (Table) 08/28/19 08/28/19 Range/Units 15:50 16:15 Sodium 118 L* (137-145) mmol/L Potassium 3.0 L (3.5-5.1) mmol/L Chloride 74 L* (98-107) mmol/L Carbon Dioxide 35 H (22-30) mmol/L BUN 27 H (7-17) mg/dL Glucose 124 H (74-99) mg/dL AST 39 H (14-36) U/L Total Protein 6.2 L (6.3-8.2) g/dL Ur Leukocyte Esterase Small H (Negative) Urine Bacteria Rare H (None) /hpf Thrombosis Risk Factor Assmnt - DVT/VTE Prophylaxis DVT/VTE Prophylaxis: Pharmacologic Prophylaxis ordered, Mechanical Prophylaxis ordered - Choose All That Apply Any of the Below Risk Factors Present?: Yes Each Factor Represents 1 point: Obesity (BMI >25), Swollen legs (current), Varicose veins Each Risk Factor Represents 3 Points: Age 75 years or older, History of DVT/PE Thrombosis Risk Factor Assessment Total Risk Factor Score: 9 Thrombosis Risk Factor Assessment Level: High Risk Assessment and Plan Assessment: 1 severe hyponatremia: 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 Patient be taking off furosemide and hydrochlorothiazide for now will continue hydration consult ne phrology urine osmolality sodium and potassium will be done repeat sodium in the next 24 hours. 2 multiple fall with severe abnormal bouncing gait: Patient will be seen PT OT and might need to go to rehab. 3 recent urinary tract infection: Was treated not on any antibiotics currently might continue Ceftin or Macrodantin. Urine and urine culture be done. 4 severe incontinence and overactive bladder: Has been on Myrbetriq 50 mg a day. Next 5 hypothyroidism: Continue patient on levothyroxine 25 g daily. 6 hypertension: Has been on Cozaar 50 mg a day resume medication patient on was on furosemide and hydrochlorothiazide both will be suspended for now. 7 electrolyte imbalance: Has been on potassium chloride supplement regularly. 8 severe chronic acoustic neuroma with severe abnormal equilibrium and balance related to, patient can benefit from PTOT at this point. 9 debility: Will add PTOT and possible consult physiatry for possible inpatient rehab. 10 severe GERD: Patient will be on omeprazole. 11 DVT prophylaxis: Patient will have knee-high TONYA hose and will add heparin 5000 units subcutaneous twice a day. 12 hyperglycemia: Add Accu-Chek with sliding scales coverage. CODE STATUS: Full code. Admit patient to the hospital 2 night admission..
--- NOTE | 2019-08-29 13:54 | P.PN ---
Subjective Progress Note Date: 08/29/19 Principal diagnosis: Severe hyponatremia, multiple falls, abnormal balance and gait, hypertensio 88-year-old female one of Dr. Dey patient was seen urologist at [facility] named Dr. Parks and seen an ENT with long-standing history of acoustic neuroma surgery continue to have severe abnormal balance and gait with severe hearing loss. Apparently patient went to see her urologist and treated for urinary tract infection did not feel good was in to see Dr. Lomas on Saturday had more blood test and exam showed severe abnormal balance and gait, surprisingly her blood test shows severe hyponatremia with sodium is 118. Was instructed to come to the emergency department be admitted to the hospital. Also patient apparently seen Dr. Duque on Saturday and had steroid injection in the left knee for severe arthritis and worsening symptoms. Patient declined any excessive amount of water consumption she does 36 ounce of fluid and 2 cups of tea every day according to her no addition diuretics she is already on 2 diuretics previously and more dry dehydrated lately. 08/28: Patient is feeling slightly but better continue to be severe weakness tiredness and fatigue sodium has improved some 2025 patient is still on IV hydration nephrology consultation is on been done yet patient is still off diuretics continue complaint significant pain and discomfort in the neck area from all cervical spine injury with generalized weakness and fatigue we'll add PTOT patient might require to go to rehab for short period of time. Objective - Vital Signs Vital signs: Vital Signs Temp 97.7 F 08/29/19 12:00 Pulse 79 08/29/19 12:00 Resp 18 08/29/19 12:00 BP 112/50 08/29/19 12:00 Pulse Ox 99 08/29/19 12:00 Intake & Output 08/28/19 08/29/19 08/29/19 18:59 06:59 18:59 Intake Total 540 Output Total 600 Balance -600 540 Weight 72.575 kg 67 kg Intake: Oral 540 Output: Urine 600 Other: Voiding Method Bedpan Bedpan # Voids 2 3 # Bowel Movements 1 - Exam Review of Systems CONSTITUTIONAL: Well-developed no acute respiratory distress. EYES: No icterus sclerae, no conjunctivitis. History of acoustic neuroma and severe abnormal balance and gait with multiple episode of equilibrium problem EARS, NOSE, MOUTH, THROAT, and FACE: No sore throat, lymphadenopathy, carotid bruits or deformity. RESPIRATORY: No SOB cough or wheezes. CARDIOVASCULAR: No CP, Palpitation, PND, Orthopnea, or angina. GASTROINTESTINAL: No Abd pain, Nausea or vomiting, no Diarrhea or constipation, No GI Bleed, no distention or masses. GENITOURINARY: Negative for Hematuria or UTI, no kidney stones. INTEGUMENT/BREAST: Negative for any muscular injury with mild osteoarthritis.. HEMATOLOGIC/LYMPHATIC: Negative for bleed or purpura. Chronic history of anemia MUSCULOSKELTAL: Negative for Myalgia or arthralgia. Severe arthritis of the left knee NEURLOGICAL: No LOC, Sz or syncope, positive dizziness with abnormal balance and gait. BEHAVIORAL/PSYCH: Negative. ENDOCRINE: Negative. Physical Exam Vitals: General Appearance: Alert, cooperative, no distress, appears stated age. Neck HEENT: Supple, no lymphadenopathy, no thyroid enlargement, no carotid bruits. Lungs: Clear to auscultation without crackles or wheezes no rhonchi, no deformity. Chest Wall: Chest wall normal expansion with deep inspiration no tenderness and no deformity was found on exam, no costochondral pain or discomfort. Heart: Regular rate and rhythm, S1, S2 normal, no murmur, rub or gallop. Back: Symmetric, no curvature, ROM normal, no CVA tenderness. Abdomen: Soft, non-tender, bowel sounds active all four quadrants, no masses, no organomegaly. Extremities: Trace edema slight scar tissue of the left side with mild bruise from needle from arthrocentesis. Pulses: 2+ and symmetric. Skin: Skin color, texture, tugor normal, no rashes or lesions. Neurologic: Alert oriented x3 cranial nerves II through XII intact, no motor deficit, no abnormal balance or gait. - Labs CBC & Chem 7: 08/28/19 15:50 08/29/19 06:19 Labs: Abnormal Lab Results - Last 24 Hours (Table) 08/28/19 08/28/19 08/28/19 Range/Units 15:50 16:15 21:00 Sodium 118 L* 119 L* (137-145) mmol/L Potassium 3.0 L (3.5-5.1) mmol/L Chloride 74 L* (98-107) mmol/L Carbon Dioxide 35 H (22-30) mmol/L BUN 27 H (7-17) mg/dL Creatinine (0.52-1.04) mg/dL Glucose 124 H (74-99) mg/dL Osmolality (280-301) mosm/kg Uric Acid (3.7-7.4) mg/dL AST 39 H (14-36) U/L Total Protein 6.2 L (6.3-8.2) g/dL Albumin (3.5-5.0) g/dL Ur Leukocyte Esterase Small H (Negative) Urine Bacteria Rare H (None) /hpf 08/29/19 08/29/19 Range/Units 01:25 06:19 Sodium 122 L 126 L (137-145) mmol/L Potassium (3.5-5.1) mmol/L Chloride 90 L (98-107) mmol/L Carbon Dioxide (22-30) mmol/L BUN (7-17) mg/dL Creatinine 0.44 L (0.52-1.04) mg/dL Glucose 120 H (74-99) mg/dL Osmolality 270 L (280-301) mosm/kg Uric Acid 3.3 L (3.7-7.4) mg/dL AST 39 H (14-36) U/L Total Protein 5.8 L (6.3-8.2) g/dL Albumin 3.3 L (3.5-5.0) g/dL Ur Leukocyte Esterase (Negative) Urine Bacteria (None) /hpf Assessment and Plan Assessment: 1 severe hyponatremia: 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 Patient be taking off furosemide and hydrochlorothiazide for now will continue hydration consult nephrology urine osmolality sodium and potassium will be done repeat sodium in the next 24 hours. Sodium today was up to 126, still waiting for nephrology consultation. 2 multiple fall with severe abnormal bouncing gait: Patient will be seen PT OT and might need to go to rehab. 3 recent urinary tract infection: Was treated not on any antibiotics currently might continue Ceftin or Macrodantin. Urine and urine culture be done. 4 severe incontinence and overactive bladder: Has been on Myrbetriq 50 mg a day. Next 5 hypothyroidism: Continue patient on levothyroxine 25 g daily. 6 hypertension: Has been on Cozaar 50 mg a day resume medication patient on was on furosemide and hydrochlorothiazide both will be suspended for now. 7 electrolyte imbalance: Has been on potassium chloride supplement regularly. 8 severe chronic acoustic neuroma with severe abnormal equilibrium and balance related to, patient can benefit from PTOT at this point. 9 debility: Will add PTOT and possible consult physiatry for possible inpatient rehab. 10 severe GERD: Patient will be on omeprazole. 11 DVT prophylaxis: Patient will have knee-high TONYA hose and will add heparin 5000 units subcutaneous twice a day. 12 hyperglycemia: Add Accu-Chek with sliding scales coverage.
[2019-08-29] MEDS ORDERED: DEXTROSE 5% IN WATER 1,000 ML IV ONE (18:10)
[2019-08-29] MEDS ORDERED: traZODone HCL 50 MG TAB PO SCH (21:00)
[2019-08-29] MEDS ORDERED: ALPRAZolam 1 MG TAB PO SCH (21:00)
[2019-08-29 23:29] VITALS: RESP 18
[2019-08-30] MEDS: LEVOTHYROXINE 25 MCG TAB PO SCH (06:13)
[2019-08-30 07:21] LABS: Basophils % (A) 1 %; Eosinophils # (A) 0.3 k/uL (0-0.7); Eosinophils % (A) 4 %; HCT 38.1 % (34.0-46.0); HGB 12.4 gm/dL (11.4-16.0); Lymphocytes # (A) 1.7 k/uL (1.0-4.8); Lymphocytes % (A) 20 %; MCH 28.3 pg (25.0-35.0); MCHC 32.6 g/dL (31.0-37.0); MCV 86.8 fL (80.0-100.0); Mean Platelet Volume 8.3; Monocytes # (A) 0.5 k/uL (0-1.0); Monocytes % (A) 6 %; Neutrophils # (A) 5.6 k/uL (1.3-7.7); Neutrophils % (A) 68 %; Platelet Count 283 k/uL (150-450); RBC 4.39 m/uL (3.80-5.40); RDW 13.4 % (11.5-15.5); WBC 8.3 k/uL (3.8-10.6)
[2019-08-30 07:33] LABS: ALT 27 U/L (4-34); AST 41 U/L (14-36); African American GFR (CKD) >90 (>60 ml/min/1.73 sqM); Albumin 3.5 g/dL (3.5-5.0); Alkaline Phosphatase 57 U/L (38-126); Anion Gap 6 mmol/L; Blood Urea Nitrogen 9 mg/dL (7-17); Calcium 9.3 mg/dL (8.4-10.2); Carbon Dioxide 29 mmol/L (22-30); Chloride 95 mmol/L (98-107); Glucose 109 mg/dL (74-99); Non-African American GFR(CKD) 87 (>60 ml/min/1.73 sqM); Potassium 3.5 mmol/L (3.5-5.1); Sodium 130 mmol/L (137-145); Total Bilirubin 0.6 mg/dL (0.2-1.3)
[2019-08-30] MEDS: CHOLECALCIFEROL 1,000 UNIT TAB PO SCH (07:46)
[2019-08-30] MEDS: LOSARTAN 50 MG TAB PO SCH (07:46)
[2019-08-30] MEDS: Omeprazole Magnesium [Prilosec Otc] 20 MG PO SCH (07:47)
[2019-08-30] MEDS: Mirabegron [Myrbetriq] 50 MG PO SCH (07:47)
[2019-08-30 07:52] VITALS: BP 129/60; PULSE 75; TEMP 98.2
[2019-08-30] MEDS ORDERED: SODIUM BICARBONATE TAB 650 MG TAB PO SCH (12:00)
--- NOTE | 2019-08-30 12:26 | P.DS ---
Providers Date of admission: 08/28/19 16:52 Attending physician: Leo De Leon Consults: 08/29/19 12:01 Consult Physician Routine Consulting Provider: Rhina Robertson Consult Reason/Comments: Hyponatremia Do you want consulting provider notified?: Yes Primary care physician: Juan A Dey [facility] Course: Principal diagnosis: Severe hyponatremia, multiple falls, abnormal balance and gait, hypertension, lower back pain and polyuria. 88-year-old female one of Dr. Dey patient was seen urologist at [facility] named Dr. Parks and seen an ENT with long-standing history of acoustic neuroma surgery continue to have severe abnormal balance and gait with severe hearing loss. Apparently patient went to see her urologist and treated for urinary tract inf ection did not feel good was in to see Dr. Lomas on Saturday had more blood test and exam showed severe abnormal balance and gait, surprisingly her blood test shows severe hyponatremia with sodium is 118. Was instructed to come to the emergency department be admitted to the hospital. Also patient apparently seen Dr. Duque on Saturday and had steroid injection in the left knee for severe arthritis and worsening symptoms. Patient declined any excessive amount of water consumption she does 36 ounce of fluid and 2 cups of tea every day according to her no addition diuretics she is already on 2 diuretics previously and more dry dehydrated lately. 08/28: Patient is feeling slightly but better continue to be severe weakness tiredness and fatigue sodium has improved some 2025 patient is still on IV hydration nephrology consultation is on been done yet patient is still off diuretics continue complaint significant pain and discomfort in the neck area from all cervical spine injury with generalized weakness and fatigue we'll add PTOT patient might require to go to rehab for short period of time. 08/29: Patient is feeling much better she still complaining of lower back pain, her sodium is much better so far not to 130, patient still off diuretics, she was seen nephrology today she insists on going home today and to follow-up as an outpatient. Objective - Vital Signs Vital signs: Vital Signs Temp 98.2 F 08/30/19 07:48 Pulse 75 08/30/19 07:48 Resp 18 08/30/19 07:48 BP 129/60 08/30/19 07:48 Pulse Ox 95 08/30/19 07:48 Intake & Output 08/29/19 08/30/19 08/30/19 18:59 06:59 18:59 Intake Total 540 240 Output Total 200 1325 Balance 340 -1085 Weight 66.6 kg Intake: Oral 540 240 Output: Urine 200 1325 Other: Voiding Method Bedpan Bedpan Bedpan # Voids 3 2 # Bowel Movements 1 - Exam Review of Systems CONSTITUTIONAL: Well-developed no acute respiratory distress. EYES: No icterus sclerae, no conjunctivitis. History of acoustic neuroma and severe abnormal balance and gait with multiple episode of equilibrium problem EARS, NOSE, MOUTH, THROAT, and FACE: No sore throat, lymphadenopathy, carotid bruits or deformity. RESPIRATORY: No SOB cough or wheezes. CARDIOVASCULAR: No CP, Palpitation, PND, Orthopnea, or angina. GASTROINTESTINAL: No Abd pain, Nausea or vomiting, no Diarrhea or constipation, No GI Bleed, no distention or masses. GENITOURINARY: Negative for Hematuria or UTI, no kidney stones. INTEGUMENT/BREAST: Negative for any muscular injury with mild osteoarthritis.. HEMATOLOGIC/LYMPHATIC: Negative for bleed or purpura. Chronic history of anemia MUSCULOSKELTAL: Negative for Myalgia or arthralgia. Severe arthritis of the left knee NEURLOGICAL: No LOC, Sz or syncope, positive dizziness with abnormal balance and gait. BEHAVIORAL/PSYCH: Negative. ENDOCRINE: Negative. Physical Exam Vitals: General Appearance: Alert, cooperative, no distress, appears stated age. Neck HEENT: Supple, no lymphadenopathy, no thyroid enlargement, no carotid bruits. Lungs: Clear to auscultation without crackles or wheezes no rhonchi, no deformity. Chest Wall: Chest wall normal expansion with deep inspiration no tenderness and no deformity was found on exam, no costochondral pain or discomfort. Heart: Regular rate and rhythm, S1, S2 normal, no murmur, rub or gallop. Back: Symmetric, no curvature, ROM normal, no CVA tenderness. Abdomen: Soft, non-tender, bowel sounds active all four quadrants, no masses, no organomegaly. Extremities: Trace edema slight scar tissue of the left side with mild bruise from needle from arthrocentesis. Pulses: 2+ and symmetric. Skin: Skin color, texture, tugor normal, no rashes or lesions. Neurologic: Alert oriented x3 cranial nerves II through XII intact, no motor deficit, no abnormal balance or gait. 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 Patient be taking off furosemide and hydrochlorothiazide sodium is much better at 130, urine osmolality and sodium potassium was done. Patient be started on sodium bicarbonate we'll continue to hold Dyazide but resume Lasix in 2 days and patient to follow-up with her primary care and repeat another CMP in 3-5 days. 2 multiple fall with severe abnormal bouncing gait: Patient will be seen PT OT and might need to go to rehab. 3 recent urinary tract infection: Was treated not on any antibiotics currently might continue Ceftin or Macrodantin. Urine and urine culture be done. 4 severe incontinence and overactive bladder: Has been on Myrbetriq 50 mg a day. Next 5 hypothyroidism: Continue patient on levothyroxine 25 g daily. 6 hypertension: Has been on Cozaar 50 mg a day resume medication patient on was on furosemide and hydrochlorothiazide both will be suspended for now. 7 electrolyte imbalance: Has been on potassium chloride supplement regularly. 8 severe chronic acoustic neuroma with severe abnormal equilibrium and balance related to, patient can benefit from PTOT at this point. 9 debility: Will add PTOT and possible consult physiatry for possible inpatient rehab. 10 severe GERD: Patient will be on omeprazole. 11 DVT prophylaxis: Patient will have knee-high TONYA hose and will add heparin 5000 units subcutaneous twice a day. 12 hyperglycemia: Add Accu-Chek with sliding scales coverage. CODE STATUS: Full code. Discharge planning patient wants to go home today to follow-up Dr. Dey and nephrology as an outpatient Patient Condition at Discharge: Serious Plan - Discharge Summary Discharge Rx Participant: No New Discharge Prescriptions: New traZODone HCL [Desyrel] 50 mg PO HS #30 tab Baclofen [Lioresal] 5 mg PO BID PRN #40 tab PRN Reason: Muscle Spasm Sodium Bicarbonate Tab 650 mg PO BID #60 tab Acetaminophen Tab [Tylenol] 650 mg PO Q6HR PRN tab PRN Reason: Fever and/ or MILD Pain Acetaminophen-Codeine 300-30mg [Tylenol w/codeine #3] 1 each PO Q8HR PRN #9 tab PRN Reason: MODERATE Pain Continue Cholecalciferol [Vitamin D3 (25 Mcg = 1000 Iu)] 1,000 mg PO DAILY Docusate Sodium [Dulcolax Stool Softener] 100 mg PO DAILY PRN PRN Reason: Constipation ALPRAZolam 1 mg PO HS 24 Hour Allergy (Unknown Otc) 1 tab PO DAILY PRN PRN Reason: Allergy Symptoms Levothyroxine Sodium [Synthroid] 25 mcg PO DAILY Ibuprofen [Motrin] 800 mg PO TID Furosemide [Lasix] 20 mg PO DAILY #7 tab Potassium Chloride ER [K-Dur 20] 20 meq PO DAILY #10 tab Mirabegron [Myrbetriq] 50 mg PO DAILY Losartan [Cozaar] 50 mg PO DAILY Omeprazole Magnesium [PriLOSEC OTC] 20 mg PO DAILY Discontinued Hydrochlorothiazide [Hydrodiuril] 12.5 mg PO DAILY Discharge Medication List Cholecalciferol [Vitamin D3 (25 Mcg = 1000 Iu)] 1,000 mg PO DAILY 06/08/14 [History] ALPRAZolam 1 mg PO HS 12/07/14 [History] Docusate Sodium [Dulcolax Stool Softener] 100 mg PO DAILY PRN 12/07/14 [History] 24 Hour Allergy (Unknown Otc) 1 tab PO DAILY PRN 05/13/18 [History] Ibuprofen [Motrin] 800 mg PO TID 05/13/18 [History] Levothyroxine Sodium [Synthroid] 25 mcg PO DAILY 05/13/18 [History] Furosemide [Lasix] 20 mg PO DAILY #7 tab 05/27/18 [Rx] Potassium Chloride ER [K-Dur 20] 20 meq PO DAILY #10 tab 07/23/18 [Rx] Losartan [Cozaar] 50 mg PO DAILY 08/28/19 [History] Mirabegron [Myrbetriq] 50 mg PO DAILY 08/28/19 [History] Omeprazole Magnesium [PriLOSEC OTC] 20 mg PO DAILY 08/28/19 [History] Acetaminophen Tab [Tylenol] 650 mg PO Q6HR PRN tab 08/30/19 [Rx] Acetaminophen-Codeine 300-30mg [Tylenol w/codeine #3] 1 each PO Q8HR PRN #9 tab 08/30/19 [Rx] Baclofen [Lioresal] 5 mg PO BID PRN #40 tab 08/30/19 [Rx] Sodium Bicarbonate Tab 650 mg PO BID #60 tab 08/30/19 [Rx] traZODone HCL [Desyrel] 50 mg PO HS #30 tab 08/30/19 [Rx] Follow up Appointment(s)/Referral(s): Juan A Dey DO [Primary Care Provider] - 1-2 days (call tues for appt) Morales Pino DO [STAFF PHYSICIAN] - 1 Week (call tues for appt) Discharge Disposition: HOME SELF-CARE
[2019-08-30] MEDS ORDERED: POTASSIUM CHLORIDE ER 20 MEQ TAB.ER PO STA (13:10)
--- NOTE | 2019-08-30 13:10 | P.NPCON ---
History of Present Illness - Reason for Consult hyponatremia - History of Present Illness Reason for consultation: Hyponatremia History of present illness: Patient is a 88-year-old female seen in consultation for hyponatremia. Patient states she had blood work done as outpatient and was advised to go to the hospital due to low sodium level. Patient denies any significant vomiting or diarrhea. However she was taking hydrochlorothiazide as outpatient for blood pressure control. Patient states she monitors her fluid intake and usually drinks about 32-36 ounces of fluid in 1 day. Patient's sodium level on admission was 118 and she was started on normal saline. Sodium level did come up to 126 yesterday and normal saline was stopped. She did receive D5W for about 4-5 hours to slow the correction of hyponatremia. This morning her sodium level is 1:30. She feels well. No edema. Good urine output. No chest pain or shortness of breath. No history of kidney disease. GFR at baseline. No h istory of cancer. Blood pressure well controlled. Vital signs are stable. General: The patient appeared well nourished and normally developed. HEENT: Head exam is unremarkable. Neck is without jugular venous distension. LUNGS: Lungs are clear to auscultation and percussion. Breath sounds decreased. HEART: Rate and Rhythm are regular. First and second heart sounds normal. No murmurs, rubs or gallops. ABDOMEN: Abdominal exam reveals normal bowel sounds. Non-tender and non- distended. EXTREMITITES: No clubbing, cyanosis, or edema. Past Medical History Past Medical History: GERD/Reflux, Hearing Disorder / Deafness, Hypertension, Osteoarthritis (OA), Pulmonary Embolus (PE), Thyroid Disorder Additional Past Medical History / Comment(s): 12-07-14 admitted to [facility] with c/o chest pain. other hx:hiatal hernia, PE AFTER KNEE SX, INCONT OF URINE, DEAF RT EAR [facility] LT WEARS HEARING AID,UPPER DENTURE AND WEARS GLASSES TO READ. History of Any Multi-Drug Resistant Organisms: None Reported Past Surgical History: Cholecystectomy, Heart Catheterization, Hysterectomy, Joint Replacement, Tonsillectomy Additional Past Surgical History / Comment(s): cochlear implant, acoustic tumor removed rt ear 2010, egd/colonoscopy, rt carpal tunnel, rt knee replacement, [employer]AME[employer] Past Anesthesia/Blood Transfusion Reactions: No Reported Reaction Past Psychological History: Anxiety, Depression Smoking Status: Never smoker Past Alcohol Use History: Rare Past Drug Use History: None Reported - Past Family History Father Family Medical History: Dementia Mother Family Medical History: Cancer, Hypertension Additional Family Medical History / Comment(s): from lung cancer Brother(s) Family Medical History: Diabetes Mellitus Sister(s) Family Medical History: Cancer Son(s) Family Medical History: Coronary Artery Disease (CAD) Medications and Allergies Home Medications Medication Instructions Recorded Confirmed Type Cholecalciferol [Vitamin D3 (25 1,000 mg PO DAILY 06/08/14 08/28/19 History Mcg = 1000 Iu)] ALPRAZolam 1 mg PO HS 12/07/14 08/28/19 History Docusate Sodium [Dulcolax Stool 100 mg PO DAILY PRN 12/07/14 08/28/19 History Softener] 24 Hour Allergy (Unknown Otc) 1 tab PO DAILY PRN 05/13/18 08/28/19 History Ibuprofen [Motrin] 800 mg PO TID 05/13/18 08/28/19 History Levothyroxine Sodium [Synthroid] 25 mcg PO DAILY 05/13/18 08/28/19 History Furosemide [Lasix] 20 mg PO DAILY #7 tab 05/27/18 08/28/19 Rx Potassium Chloride ER [K-Dur 20] 20 meq PO DAILY #10 tab 07/23/18 08/28/19 Rx Losartan [Cozaar] 50 mg PO DAILY 08/28/19 08/28/19 History Mirabegron [Myrbetriq] 50 mg PO DAILY 08/28/19 08/28/19 History Omeprazole Magnesium [PriLOSEC OTC] 20 mg PO DAILY 08/28/19 08/28/19 History Acetaminophen Tab [Tylenol] 650 mg PO Q6HR PRN tab 08/30/19 Rx Acetaminophen-Codeine 300-30mg 1 each PO Q8HR PRN #9 tab 08/30/19 Rx [Tylenol w/codeine #3] Baclofen [Lioresal] 5 mg PO BID PRN #40 tab 08/30/19 Rx Sodium Bicarbonate Tab 650 mg PO BID #60 tab 08/30/19 Rx traZODone HCL [Desyrel] 50 mg PO HS #30 tab 08/30/19 Rx Allergies Allergy/AdvReac Type Severity Reaction Status Date / Time ciprofloxacin [From Cipro] Allergy Rash/Hives/ Verified 08/28/19 17:24 Nausea ciprofloxacin HCl Allergy Rash/Hives/ Verified 08/28/19 17:24 [From Cipro] Nausea doxycycline Allergy Rash/Hives Verified 08/28/19 17:24 esomeprazole magnesium Allergy Rash/Hives Verified 08/28/19 17:24 [From Vimovo] fesoterodine [From Toviaz] Allergy Unknown Verified 08/28/19 17:24 fluconazole Allergy Rash/Hives Verified 08/28/19 17:24 hydrocodone bitartrate Allergy Hallucinati Verified 08/28/19 17:24 [From Vicodin] ons naproxen [From Vimovo] Allergy Rash/Hives Verified 08/28/19 17:24 penicillin G Allergy Rash/Hives Verified 08/28/19 17:24 sulfamethoxazole Allergy Rash/Hives Verified 08/28/19 17:24 [From Bactrim] tramadol Allergy Unknown Verified 08/28/19 17:24 trimethoprim [From Bactrim] Allergy Rash/Hives Verified 08/28/19 17:24 hydrocodone [From [place]] AdvReac HEADACHE Verified 08/28/19 17:24 levofloxacin [From Levaquin] AdvReac Itching Verified 08/28/19 17:24 mirabegron [From Myrbetriq] AdvReac HEADACHE/BLURRED Verified 08/28/19 17:24 VISION oxybutynin AdvReac BLURRED Verified 08/28/19 17:24 VISION phenazopyridine AdvReac Itching Verified 08/28/19 17:24 Physical Exam Vitals: Vital Signs Temp Pulse Resp BP Pulse Ox 08/30/19 07:48 98.2 F 75 16 129/60 95 08/30/19 03:05 98.1 F 83 18 125/55 94 L 08/29/19 23:10 97.8 F 74 18 105/57 96 08/29/19 19:40 16 08/29/19 19:30 98.2 F 75 16 119/64 95 08/29/19 16:10 98 F 90 16 117/55 95 Intake and Output 08/29/19 08/30/19 08/30/19 22:59 06:59 14:59 Intake Total 240 240 Output Total 200 1325 300 Balance 40 -1325 -60 Intake: Oral 240 240 Output: Urine 200 1325 300 Other: Voiding Method Bedpan Bedpan Bedpan # Voids 2 Weight 66.6 kg Results - Lab Results Most recent lab results Calcium 9.3 mg/dL (8.4-10.2) 08/30/19 06:38 Phosphorus 3.3 mg/dL (2.5-4.5) 08/29/19 06:19 Magnesium 1.9 mg/dL (1.6-2.3) 08/29/19 06:19 08/30/19 06:38 08/30/19 06:38 Assessment and Plan Plan: Assessment: 1. Hypovolemic hyponatremia improved with normal saline. Further worsened with the use of Dyazide diuretic. Sodium level 130 this morning. 2. Benign hypertension. Controlled. 3. Mild hypokalemia from poor oral intake and thiazide diuretic. Magnesium normal. Plan: Encourage oral intake. Avoid thiazide diuretics in the future. Maintain 40 ounce fluid restriction. Anticipate discharge soon. Follow up outpatient in 2 weeks. Thank you for the consultation. I will continue to follow the patient with you during her hospital stay.
== END 2019-08-30 14:06 | disposition home or self-care (01) | DRG 644 ==
LOC: EC 15:16 → 3SCARD 16:52
PROVIDERS: ADMIT Internal Medicine Geriatric Medicine; ATTEND Internal Medicine Geriatric Medicine
DX: E22.2 Syndrome of inappropriate secretion of antidiuretic hormone (principal); N39.0 Urinary tract infection, site not specified; Z11.59 Encounter for screening for other viral diseases; D33.3 Benign neoplasm of cranial nerves; E03.9 Hypothyroidism, unspecified; E86.0 Dehydration; E86.1 Hypovolemia; E87.6 Hypokalemia; E87.8 Other disorders of electrolyte and fluid balance, not elsewhere classified; F32.9 Major depressive disorder, single episode, unspecified; F41.9 Anxiety disorder, unspecified; H91.8X3 Other specified hearing loss, bilateral; I10 Essential (primary) hypertension; K21.9 Gastro-esophageal reflux disease without esophagitis; M19.90 Unspecified osteoarthritis, unspecified site; N32.81 Overactive bladder; R29.6 Repeated falls; R32 Unspecified urinary incontinence; Z79.890 Hormone replacement therapy; Z79.899 Other long term (current) drug therapy; Z80.1 Family history of malignant neoplasm of trachea, bronchus and lung; Z82.49 Family history of ischemic heart disease and other diseases of the circulatory system; Z83.3 Family history of diabetes mellitus; Z86.711 Personal history of pulmonary embolism; Z90.710 Acquired absence of both cervix and uterus; Z96.651 Presence of right artificial knee joint; Z97.4 Presence of external hearing-aid; Z98.42 Cataract extraction status, left eye; Z98.41 Cataract extraction status, right eye; Z87.440 Personal history of urinary (tract) infections; Z88.1 Allergy status to other antibiotic agents; Z88.5 Allergy status to narcotic agent; Z88.0 Allergy status to penicillin; Z88.2 Allergy status to sulfonamides; Z88.8 Allergy status to other drugs, medicaments and biological substances; Z90.49 Acquired absence of other specified parts of digestive tract; R73.9 Hyperglycemia, unspecified; R26.9 Unspecified abnormalities of gait and mobility
CPT/HCPCS: 36415; 70450; 80053; 81001; 82310; 82533; 83735; 83930; 83935; 84100; 84295; 84300; 84443; 84540; 84550; 84560; 85025; 87077; 87086; 87186; 87635; 93005; 96361; 96365; 99285

== ENCOUNTER → 2019-11-25 | Outpatient (CLI) | payer MEDICARE, BC ==
--- NOTE | 2019-11-25 14:52 | CT ---
EXAMINATION TYPE: CT lumbar spine wo con DATE OF EXAM: 11/25/2019 2:28 PM COMPARISON: None. HISTORY: Low back pain for couple months. Spondylolisthesis and degenerative disc disease per order. CT DLP: 588.2 mGycm Automated exposure control for dose reduction was used. Unenhanced CT of the lumbar spine was performed. Bone and soft tissue window settings are submitted as well as coronal and sagittal reconstructions. There are 5 lumbar type vertebra identified. There is grade 1 anterolisthesis L4 on L5. Vertebral bod y heights are maintained. Moderate multilevel disc space narrowing L2-L3 through the L4-L5 levels. Th ere is vacuum disc phenomenon L2-L3 and L4-L5 levels. There is mild multilevel anterior and lateral s purring. Mild height loss along the superior T12 endplate is present. Axial images show the T12-L1 and L1-L2 levels to appear within normal limits. Axial images at the L2-L3 level show nzph-nh-awxlyoid broad disc bulge mildly effacing anterior theca l sac and mild facet degenerative changes bilaterally. There is mild bilateral anterior inferior neur al foraminal narrowing noted. Axial images at the L3-L4 level show moderate to severe broad-based disc bulge effacing anterior thec al sac along with mild/moderate facet degenerative changes and ligament hypertrophy effacing the post erolateral thecal sac on axial image 42. There is dbdb-[id number] bilateral anterior inferior neural foraminal narrowing noted. Axial images at L4-L5 level show spondylolisthesis along with moderate broad disc bulge effacing the anterior thecal sac. There is nkrxjaud-zc-zptlqu facet degenerative changes effacing the posterior la teral thecal sac greatest on axial image 52. There is moderate right greater than left bilateral ante roinferior neural foraminal narrowing. Axial images at the L5-S1 level show moderate to advanced facet degenerative changes bilaterally. Spi nal canal is preserved. Bilateral neural foramina are patent. Rtjr-pw-etbwpbhr calcified plaque of the aorta extends into branch vessels. There is cortical thinnin g in both kidneys. There is suspected asymmetric diminished size or atrophy to the right kidney parti ally imaged. IMPRESSION: Multilevel degenerative changes greatest at L3-L4 and L4-L5 levels as detailed above.
== END | disposition home or self-care (01) ==
LOC: RADCTMAIN 14:06
PROVIDERS: ATTEND Orthopaedic Surgery Orthopaedic Surgery of the Spine
DX: M47.816 Spondylosis without myelopathy or radiculopathy, lumbar region (principal)
CPT/HCPCS: 72131

== ENCOUNTER → 2020-04-04 | Outpatient (CLI) | payer MEDICARE, BC ==
--- NOTE | 2020-04-04 12:19 | XR ---
EXAMINATION TYPE: XR Hip Bilateral Complete DATE OF EXAM: 04/04/2020 CLINICAL HISTORY: Repeated falls with pain. TECHNIQUE: AP and frogleg views of the bilateral hips are obtained. COMPARISON: Prior bilateral hip x-ray July 22, 2018. FINDINGS: There is no acute fracture/dislocation evident in either hip. Stable mild to moderate axia l joint space loss along with acetabular spurring and mild to moderate head neck collar spurring in t he left hip. Similar findings in the right hip with eery-ng-wlgysxol axial joint space loss, mild rig ht-sided acetabular spurring less prominent than left side. The overlying soft tissue appears unrema rkable bilaterally. IMPRESSION: As above. Slightly more prominent degenerative changes left hip. No significant change fr om prior x-ray.
== END | disposition home or self-care (01) ==
LOC: RADXRMAIN 10:27
PROVIDERS: ATTEND Family Medicine
DX: M16.12 Unilateral primary osteoarthritis, left hip (principal); M25.551 Pain in right hip; M25.552 Pain in left hip
CPT/HCPCS: 73521

== ENCOUNTER → 2020-04-11 | Outpatient (CLI) | payer MEDICARE, BC ==
[2020-04-11 11:33] LABS: Basophils # (A) 0.1 k/uL (0-0.2); Basophils % (A) 1 %; Eosinophils # (A) 0.2 k/uL (0-0.7); Eosinophils % (A) 2 %; HCT 40.3 % (34.0-46.0); HGB 13.6 gm/dL (11.4-16.0); Lymphocytes # (A) 1.5 k/uL (1.0-4.8); Lymphocytes % (A) 22 %; MCH 31.7 pg (25.0-35.0); MCHC 33.7 g/dL (31.0-37.0); Mean Platelet Volume 7.8; Monocytes # (A) 0.3 k/uL (0-1.0); Monocytes % (A) 5 %; Neutrophils # (A) 4.6 k/uL (1.3-7.7); Neutrophils % (A) 69 %; Platelet Count 186 k/uL (150-450); RBC 4.29 m/uL (3.80-5.40); RDW 13.1 % (11.5-15.5); WBC 6.7 k/uL (3.8-10.6)
[2020-04-11 11:38] LABS: INR 0.9 (<1.2); Partial Thromboplastin Time 24.3 sec (22.0-30.0); Prothrombin Time 9.9 sec (9.0-12.0)
[2020-04-11 11:41] LABS: African American GFR (CKD) >90 (>60 ml/min/1.73 sqM); Anion Gap 1 mmol/L; Blood Urea Nitrogen 10 mg/dL (7-17); Calcium 9.2 mg/dL (8.4-10.2); Carbon Dioxide 30 mmol/L (22-30); Chloride 106 mmol/L (98-107); Glucose 116 mg/dL (74-99); Non-African American GFR(CKD) 82 (>60 ml/min/1.73 sqM); Potassium 4.3 mmol/L (3.5-5.1); Sodium 137 mmol/L (137-145)
--- NOTE | 2020-04-11 12:53 | XR ---
EXAMINATION TYPE: XR chest 2V DATE OF EXAM: 04/11/2020 COMPARISON: 05/27/2018 HISTORY: 89-year-old female surgical testing prior to back surgery. TECHNIQUE: PA and lateral views FINDINGS: Heart upper limits of normal in size. Hyperinflation. Peribronchial cuffing and mild interstitial pro minence. Mild pectus excavatum. No liam consolidation or pleural effusion. Cholecystectomy clips. IMPRESSION: 1. Borderline heart size. 2. Chronic-appearing changes, suspect underlying COPD.
[2020-04-11 16:08] LABS: Appearance,Urine Cloudy (Clear); Bacteria,Urine Rare /hpf; Bilirubin,Urine Negative (Negative); Blood,Urine Negative (Negative); Color,Urine Light Yellow; Glucose,Urine (UA) Negative (Negative); Ketones,Urine Negative (Negative); Leukocyte Esterase,Urine Large (Negative); Mucus,Urine Rare /hpf; Nitrite,Urine Negative (Negative); Protein,Urine Negative (Negative); RBC,Urine 6 /hpf (0-5); Specific Gravity,Urine 1.017 (1.001-1.035); Squamous Epithelial Cell,Urine 1 /hpf (0-4); Urobilinogen,Urine <2.0 mg/dL (<2.0); WBC,Urine >182 /hpf (0-5)
== END | disposition home or self-care (01) ==
LOC: LABPAT 10:13
PROVIDERS: ATTEND Orthopaedic Surgery Orthopaedic Surgery of the Spine
DX: Z01.818 Encounter for other preprocedural examination (principal); J98.4 Other disorders of lung; M48.00 Spinal stenosis, site unspecified; Z79.01 Long term (current) use of anticoagulants
CPT/HCPCS: 36415; 71046; 80048; 81001; 85025; 85610; 85730

== ENCOUNTER → 2020-04-19 | Outpatient (CLI) | payer MEDICARE, BC ==
[2020-04-19 10:32] LABS: Appearance,Urine Clear (Clear); Bilirubin,Urine Negative (Negative); Blood,Urine Negative (Negative); Color,Urine Yellow; Glucose,Urine (UA) Negative (Negative); Ketones,Urine Negative (Negative); Leukocyte Esterase,Urine Small (Negative); Mucus,Urine Rare /hpf; Nitrite,Urine Negative (Negative); PH, Urine 6.5 (5.0-8.0); Protein,Urine Negative (Negative); Squamous Epithelial Cell,Urine 1 /hpf (0-4); Urobilinogen,Urine <2.0 mg/dL (<2.0); WBC,Urine 7 /hpf (0-5)
== END | disposition home or self-care (01) ==
LOC: LABPAT 09:49
PROVIDERS: ATTEND Orthopaedic Surgery Orthopaedic Surgery of the Spine
DX: Z01.818 Encounter for other preprocedural examination (principal); N39.0 Urinary tract infection, site not specified; M48.00 Spinal stenosis, site unspecified; M43.10 Spondylolisthesis, site unspecified; Z79.01 Long term (current) use of anticoagulants
CPT/HCPCS: 81001; 93005

== ENCOUNTER 2020-04-20 06:10 | Day surgery (SDC) | payer MEDICARE, BC ==
[~2020-04-20 06:10] MED LIST: ONDANSETRON 4 MG/2 ML VIAL IVP ONE; ceFAZolin 1,000 MG in SODIUM CHLORIDE 0.9% IRRIGATIO 1,000 ML IRRIGATION PRN
[2020-04-20] MEDS: LACTATED RINGERS 1,000 ML IV SCH (07:09)
[2020-04-20] MEDS ORDERED: LIDOCAINE 1% (10MG/ML) FOR IV START INTRADERMA ONE (07:09)
[2020-04-20] MEDS ORDERED: PHENYLEPHRINE 10 MG/ML VIAL ONE (07:28)
[2020-04-20] MEDS ORDERED: fentaNYL (PF) 50 MCG/ML 2 ML AMP ONE (07:28)
[2020-04-20] MEDS ORDERED: GLYCOPYRROLATE 0.2 MG/ML 2 ML VIAL ONE (07:28)
[2020-04-20] MEDS ORDERED: PROPOFOL 10 MG/ML 20 ML VIAL IV ONE (07:28)
[2020-04-20] MEDS ORDERED: NEOSTIGMINE 1 MG/ML 10 ML VIAL ONE (07:28)
[2020-04-20] MEDS ORDERED: ROCURONIUM 10 MG/ML (10 ML VIAL) IV ONE (07:28)
[2020-04-20] MEDS ORDERED: SUCCINYLCHOLINE CHLORIDE 100 MG/5 ML SYR IV ONE (07:28)
[2020-04-20] MEDS ORDERED: LIDOCAINE 1% INJ 10MG/ML (20 ML MDV) ONE (07:28)
[2020-04-20] MEDS ORDERED: GELATIN SPONGE,ABSORB (LARGE) 1 EACH SPONGE MISCELLANE ONE ×2 (07:30→08:12)
[2020-04-20] MEDS ORDERED: LIDOCAINE 0.5%-EPI 1:200,000 50 ML VIAL SQ ONE ×3 (07:31→08:12)
[2020-04-20] MEDS ORDERED: methylPREDNISolone ACETATE 40 MG/ML 1 ML VIAL MISCELLANE ONE ×3 (07:39→09:07)
[2020-04-20] MEDS ORDERED: THROMBIN (BOVINE) 5,000 UNIT VIAL MISCELLANE ONE (08:08)
--- NOTE | 2020-04-20 09:30 | FL ---
EXAMINATION TYPE: FL guidance operating room, XR lumbar spine 1V DATE OF EXAM: 04/20/2020 CLINICAL HISTORY: Low-back pain. TECHNIQUE: Fluoroscopy. Lumbar spine one view. COMPARISON: CT lumbar spine November 25, 2019. FINDINGS: Fluoroscopic guidance was provided during lumbar laminectomy procedure performed by Dr. Valeriano bailey. A total of 0.03 minutes of fluoroscopic time was utilized during the procedure and 1 spot intra operative image is acquired. Single intraoperative image shows a pointer for localization at the posterior L4 level. IMPRESSION: As Above.
[2020-04-20] MEDS ORDERED: ONDANSETRON 4 MG/2 ML VIAL IVP PRN (09:32)
[2020-04-20] MEDS ORDERED: HYDROcodone/APAP 5-325MG 1 EACH TAB PO PRN (09:32)
[2020-04-20] MEDS ORDERED: BENZOCAINE/MENTHOL LOZENG 1 EACH LOZENGE MUCOUS MEM PRN (09:32)
[2020-04-20] MEDS ORDERED: HYDROmorphone 0.5 MG/0.5 ML SYRINGE IVP PRN (09:32)
[2020-04-20] MEDS ORDERED: ACETAMINOPHEN TAB 325 MG TAB PO PRN (09:34)
[2020-04-20] MEDS ORDERED: IBUPROFEN 800 MG TAB PO PRN (09:34)
--- NOTE | 2020-04-20 09:40 | P.OP ---
Date of Procedure: 04/20/20 Preoperative Diagnosis: Severe spinal stenosis L3 4 L4 5, spondylolisthesis L4 5, lower extremity radiculopathy, neurogenic claudication bilateral lower extremities, lower extremity weakness, low back pain, right lower extremity pain, facet arthrosis Postoperative Diagnosis: Same Anesthesia: GETA Pathology: none sent Condition: stable Disposition: PACU Description of Procedure: DESCRIPTION OF PROCEDURE(S): BRIEF OPERATIVE NOTE Preoperative Diagnosis: Severe spinal stenosis L3 4 L4 5, spondylolisthesis L4 5, lower extremity radiculopathy, neurogenic claudication bilateral lower extremities, lower extremity weakness, low back pain, right lower extremity pain, facet arthrosis Postoperative Diagnosis: Same Procedure: Laminectomy and decompression bilaterally, with wide bilateral foraminotomies L3 4 L4 5 Placement of interlaminar stabilizer at L3 4 and L4 5 Use of fluoroscopic guidance Surgeon: Dr. Stevens [employer] Tender: Rony CEDEÑO who is present throughout the entire the case persistence during positioning, dissection, exposure, visualization, and all crucial elements of the case as well as closure. Anesthesia: General anesthesia Estimated blood loss: Complications: None apparent Components implanted: [employer]igm Coflex interlaminar stabilization device 2 at both L3 4 and L4 5 Disposition: To recovery room in good stable condition. OPERATIVE INDICATIONS The patient has been having issues in their lower back and lower extremities. The patient was having evidence of neurogenic claudication and spinal stenosis along with issues with lower extremity radiculopathy. The patient was found to have severe spinal stenosis which correlated well with their low back and lower extremity symptoms. She also had a listhesis at L4 5. The patient has been through conservative treatment. The patient was having severe debility due to her issues. She is elderly but still tries to mobilize and is thought to be in good health. She was having severe pain and was primarily complaining of pain at her legs whenever she tried to get up. She apparently she is at home primarily crying and complaining of the pain at her lower extremities and her inability to mobilize due to the pain in her legs. She states that she cannot go on this way with her leg pain and has stated that she rather than continue with the leg pain that she was experiencing. She is very guarded fearing but she is able to communicate and her family discussed the issues with her as well. We had lengthy discussions with her family in regards to the possibility of further intervention including surgery. We discussed the risks at length particular given her advanced age. With their imaging, and the level of their stenosis and their propensity for the possibility of recurrent stenosis I felt that decompression with intralaminar stabilization would be a good benefit for the patient. We discussed various treatment options including surge ry, and the patient wishes to proceed with surgery We discussed the risk, patient's alternatives and benefits of surgery including but not limited to, risk of bleeding risk of infection, risk of need for further surgery, risk of decreased, loss of motion, loss of function, nerve damage, paralysis, heart attack, blindness and . OPERATIVE SUMMARY After discussing all the risks, patient alternatives and benefits at length, the patient elected to proceed with surgical intervention, signed informed consent, and presented for their procedure. The patient was seen and examined in the preoperative holding area and the surgical site was marked. The patient was given antibiotics and brought to the operating room. The patient was sedated and intubated by anesthesia in standard fashion. The patient was positioned on to the operating room table in a prone position on the appropriate frame which was well-padded and well molded. We were careful to pad any bony prominences and pressure points. We were careful to maintain the patient's cervical spine and good neutral alignment and position throughout. The patient was prepped and draped in a normal standard fashion. An appropriate timeout and keystone protocol performed. We were able to proceed with the surgery. Fluoroscopy was utilized to establish the appropriate level. The local wound area was infiltrated with local anesthetic. An incision was made at the midline longitudinally over the appropriate levels at L3 4 and 5. Dissection was taken down subcutaneously to the level of the fascia which was split midline. Dissection was taken over the lamina. Intraoperative fluoroscopy was taken which showed a marker at the appropriate level. With the appropriate level positively confirmed, we were able to proceed with laminectomy. The wound was copiously irrigated and suctioned dry as had been done periodically throughout the case. I performed a laminectomy with a combination of curettes and a high-speed bur and Kerrison rongeurs. A small medial facetectomy was performed again further access. This was done bilaterally at that level. A partial foraminotomy was also performed. Portions of the ligamentum flavum were taken down to expose the dura and traversing nerve root. I was able to mobilize the traversing nerve root and gain access to the disc space. The patient had been found to have severe central and bilateral foraminal stenosis both at L3 4 and L4 5 which was remedied with decompression laminectomy and foraminotomy. Good hemostasis maintained. The wound was copiously irrigated and suctioned dry. Good decompression was noted. At this point further prepared the interspinous process and interlaminar space with a combination of curettes and a high-speed bur and Kerrison rongeurs. As able get good parallel alignment at the interspinous process space and interlaminar space. I used a trial spacer for the Coflex device and have good fit and fill with the appropriate size device. I had to shave down the spinous process at to allow for appropriate positioning of the Coflex device. The device was prepared and then positioned and malleted in position with good alignment and good position and good bony purchase at the interlaminar space. The position was checked and found to be approximately 3 mm away from the dura without impingement on the dura itself. It was checked and found to be stable. This was done first at L4 5 and then at L3 4 Intraoperative C-arm was utilized to confirm the alignment and position at the appropriate levels. We were able to proceed with closure. The fascia was closed for a watertight closure. The subcuticular tissue was closed with absorbable suture. The wound was cleaned and dried and dressed with the appropriate dressing. The drapes were broken down. The patient was gently rolled back onto their hospital bed being careful to maintain their cervical spine and good neutral alignment and position. They were woken up by anesthesia, extubated, and brought to the recovery room in good stable condition. The patient will be admitted to the hospital for observation and for appropriate postoperative care, medical management and monitoring. We will continue to follow them closely about the postoperative course.
[2020-04-20] MEDS: HYDROmorphone 0.5 MG/0.5 ML SYRINGE IVP PRN ×2 (09:54→10:07)
[2020-04-20 10:04] LABS: Glucose,Whole Blood 108 mg/dL (75-99)
[2020-04-20] MEDS ORDERED: diphenhydrAMINE 50 MG/ML 1 ML VIAL IVP ONE (10:10)
[2020-04-20] MEDS: SODIUM CHLORIDE 0.9% 1,000 ML IV SCH ×2 (18:07→20:59)
[2020-04-20] MEDS: SODIUM BICARBONATE TAB 650 MG TAB PO SCH (20:57)
[2020-04-20] MEDS ORDERED: ALPRAZolam 1 MG TAB PO SCH (21:00)
[2020-04-20] MEDS ORDERED: NITROFURANTOIN MONOHYD/M-CRYST 100 MG CAP PO SCH (21:00)
[2020-04-21] MEDS: LACTATED RINGERS 1,000 ML IV SCH (02:57)
[2020-04-21] MEDS ORDERED: LEVOTHYROXINE 25 MCG TAB PO SCH (06:30)
[2020-04-21] MEDS: SODIUM BICARBONATE TAB 650 MG TAB PO SCH (07:20)
[2020-04-21] MEDS ORDERED: PANTOPRAZOLE 40 MG TABLET PO SCH (07:30)
[2020-04-21 08:20] VITALS: BP 99/60; PULSE 70; RESP 16; TEMP 98.7
[2020-04-21] MEDS ORDERED: PSYLLIUM HUSK 100% 6 GM PACKET PO SCH (09:00)
[2020-04-21] MEDS ORDERED: CHOLECALCIFEROL 1,000 UNIT TAB PO SCH (09:00)
[2020-04-21] MEDS ORDERED: MAGNESIUM OXIDE 400 MG TAB PO SCH (09:00)
[2020-04-21] MEDS ORDERED: SENNOSIDES-DOCUSATE SODIUM 1 EACH TAB PO SCH (09:00)
[2020-04-21] MEDS ORDERED: LOSARTAN 50 MG TAB PO SCH (09:00)
[2020-04-21 11:26] VITALS: BMI 28.9
--- NOTE | 2020-04-21 13:33 | P.DS ---
Providers Date of admission: 04/20/20 Attending physician: Basilia Stevens Primary care physician: [facility] Course: The patient presented on the day of admission as per their operative note. She had severe spinal stenosis at her lumbar spine particularly at L3 4 and L4 5 and was having incapacitating pain in her lower extremities due to this. She had stated that she was unable to go on with her legs neck condition. We felt that surgery could provide her some significant benefit and she presented for her procedure as per her operative note. She feels her legs are doing well today. She says her back is sore but she has been able to mobilize. She is tolerating her regular diet. Physical Exam The incision site is clean dry and intact. There is no erythema no drainage. There is no purulence no evidence of infection. There is no drainage. The dressing is dry Abdomen soft and nontender. Chest has good excursion with deep inspiration and expiration. The patient has active and passive range of motion intact at the upper and lower extremities. There is no acute change in neurologic status. Hospital Course Postoperative day #1 status post laminectomy decompression and placement of interlaminar stabilizer for her severe spinal stenosis at L3 4 and L4 5 and lower extremity radiculopathy, claudication and weakness. The patient has been making good progress postoperatively. She feels her legs are making good improvement. She is actually been mobilizing well. And is working with therapy to increase her mobility. She seems quite comfortable and somewhat impressive for a woman of her age. They have completed the prop hylactic antibiotics without any signs or symptoms of infection. The patient has been able to advance their diet, and is tolerating diet adequately. The pain was initially controlled with IV medications and is now controlled appropriately with oral medications. The patient has been able to increase their mobilization. The patient has progressed appropriately. I think they are in good stable co ndition for discharge today. They will be sent home with appropriate prescriptions. I answered their questions to the best of my ability in a language that they can understand and they are agreeable with the plan. They will follow up as directed in approximately 2 weeks or sooner if she is having problems. Patient Condition at Discharge: Fair Plan - Discharge Summary Discharge Rx Participant: No New Discharge Prescriptions: New HYDROcodone/APAP 5-325MG [Marshall 5] 1 each PO Q6HR PRN #12 tab PRN Reason: Pain No Action Cholecalciferol [Vitamin D3 (25 Mcg = 1000 Iu)] 1,000 mg PO DAILY ALPRAZolam 1 mg PO HS Levothyroxine Sodium [Synthroid] 25 mcg PO DAILY Ibuprofen [Motrin] 800 mg PO TID PRN PRN Reason: Pain Losartan [Cozaar] 50 mg PO DAILY Omeprazole Magnesium [PriLOSEC OTC] 10 mg PO DAILY Sodium Bicarbonate Tab 650 mg PO BID #60 tab Acetaminophen Tab [Tylenol] 650 mg PO Q6HR PRN tab PRN Reason: Fever and/ or MILD Pain Psyllium Husk (with Sugar) [Metamucil Powder] 17 gm PO DAILY Magnesium Gluconate [Magonate] 500 mg PO DAILY Nitrofurantoin Monohyd/M-Cryst [Macrobid] 100 mg PO Q12HR Discharge Medication List Cholecalciferol [Vitamin D3 (25 Mcg = 1000 Iu)] 1,000 mg PO DAILY 06/08/14 [History] ALPRAZolam 1 mg PO HS 12/07/14 [History] Ibuprofen [Motrin] 800 mg PO TID PRN 05/13/18 [History] Levothyroxine Sodium [Synthroid] 25 mcg PO DAILY 05/13/18 [History] Losartan [Cozaar] 50 mg PO DAILY 08/28/19 [History] Omeprazole Magnesium [PriLOSEC OTC] 10 mg PO DAILY 08/28/19 [History] Acetaminophen Tab [Tylenol] 650 mg PO Q6HR PRN tab 08/30/19 [Rx] Sodium Bicarbonate Tab 650 mg PO BID #60 tab 08/30/19 [Rx] Magnesium Gluconate [Magonate] 500 mg PO DAILY 04/13/20 [History] Psyllium Husk (with Sugar) [Metamucil Powder] 17 gm PO DAILY 04/13/20 [History] Nitrofurantoin Monohyd/M-Cryst [Macrobid] 100 mg PO Q12HR 04/19/20 [History] HYDROcodone/APAP 5-325MG [Marshall 5] 1 each PO Q6HR PRN #12 tab 04/21/20 [Rx]
== END 2020-04-21 15:15 | disposition home or self-care (01) ==
LOC: OR 06:10 → 5NMEDONC 09:33 → OR 04-21 15:15
PROVIDERS: ATTEND Orthopaedic Surgery Orthopaedic Surgery of the Spine
DX: M48.062 Spinal stenosis, lumbar region with neurogenic claudication (principal); M47.26 Other spondylosis with radiculopathy, lumbar region; M43.16 Spondylolisthesis, lumbar region; I10 Essential (primary) hypertension; E03.9 Hypothyroidism, unspecified; H91.90 Unspecified hearing loss, unspecified ear; F32.9 Major depressive disorder, single episode, unspecified; R45.0 Nervousness; R26.81 Unsteadiness on feet; F41.9 Anxiety disorder, unspecified; K21.9 Gastro-esophageal reflux disease without esophagitis; Z86.718 Personal history of other venous thrombosis and embolism; Z87.11 Personal history of peptic ulcer disease; R51.9 Headache, unspecified; R21 Rash and other nonspecific skin eruption; Z98.42 Cataract extraction status, left eye; Z98.41 Cataract extraction status, right eye; Z96.21 Cochlear implant status; Z96.651 Presence of right artificial knee joint; Z90.710 Acquired absence of both cervix and uterus; Z83.3 Family history of diabetes mellitus; Z82.49 Family history of ischemic heart disease and other diseases of the circulatory system; Z97.2 Presence of dental prosthetic device (complete) (partial); Z87.81 Personal history of (healed) traumatic fracture; Z79.1 Long term (current) use of non-steroidal anti-inflammatories (NSAID); Z79.890 Hormone replacement therapy; Z99.81 Dependence on supplemental oxygen; Z79.891 Long term (current) use of opiate analgesic; Z79.899 Other long term (current) drug therapy; Z88.1 Allergy status to other antibiotic agents; Z88.5 Allergy status to narcotic agent; Z88.0 Allergy status to penicillin; Z88.2 Allergy status to sulfonamides; Z88.8 Allergy status to other drugs, medicaments and biological substances
CPT/HCPCS: 97530; 97162; 72020; 63047; 63048; C1713; J1200; J1030; J2370; J2710; J0690 ×3; J2405; J2001; J3010; J0330; J2704; J1170; 86850; 86900; 86901

== ENCOUNTER → 2020-09-14 | Outpatient (CLI) | payer MEDICARE, BC | END | disposition home or self-care (01) | LOC: LABPAT 11:02 | PROVIDERS: ATTEND Orthopaedic Surgery | DX: Z01.812 Encounter for preprocedural laboratory examination (principal) | CPT/HCPCS: 87070 ==

== ENCOUNTER → 2020-12-06 | Outpatient (CLI) | payer MEDICARE, BC ==
[2020-12-06 19:27] LABS: HCT 37.8 % (37.2-46.3); HGB 13.3 g/dL (12.0-15.0); MCH 30.2 pg (27.0-32.0); MCHC 35.2 g/dL (32.0-37.0); MCV 85.7 fL (80.0-97.0); Mean Platelet Volume 10.8 fL (9.5-12.2); Platelet Count 285 X 10*3/uL (140-440); RBC 4.41 X 10*6/uL (4.10-5.20); RDW 12.2 % (11.5-14.5); WBC 8.91 X 10*3/uL (4.50-10.00)
[2020-12-07 03:16] LABS: African American GFR (CKD) 100.2 (60.0-200.0); Albumin 4.1 g/dL (3.80-4.90); Albumin/Globulin Ratio 2.05 (1.60-3.17); Anion Gap 15.8 mmol/L (4.00-12.00); Calcium 8.9 mg/dL (8.7-10.3); Carbon Dioxide 24.2 mmol/L (21.6-31.8); Non-African American GFR(CKD) 86.4 (60.0-200.0); Total Bilirubin 0.7 mg/dL (0.2-1.2); Total Protein 6.1 g/dL (6.2-8.2)
== END | disposition home or self-care (01) ==
LOC: LABWHC1 11:02
PROVIDERS: ATTEND Family Medicine
DX: E53.8 Deficiency of other specified B group vitamins (principal); I10 Essential (primary) hypertension; R53.83 Other fatigue
CPT/HCPCS: 36415; 80053; 85027

== ENCOUNTER → 2020-12-23 | Outpatient (CLI) | payer MEDICARE, BC ==
[2020-12-23 20:14] LABS: HCT 37.4 % (37.2-46.3); HGB 12.5 g/dL (12.0-15.0); MCH 29.7 pg (27.0-32.0); MCHC 33.4 g/dL (32.0-37.0); MCV 88.8 fL (80.0-97.0); Mean Platelet Volume 10.7 fL (9.5-12.2); Platelet Count 276 X 10*3/uL (140-440); RBC 4.21 X 10*6/uL (4.10-5.20); RDW 12.8 % (11.5-14.5); WBC 7.58 X 10*3/uL (4.50-10.00)
[2020-12-24 06:00] LABS: African American GFR (CKD) 94.3 (60.0-200.0); Anion Gap 12.2 mmol/L (4.00-12.00); BUN/Creat Ratio 18.33 Ratio (12.00-20.00); Calcium 9.4 mg/dL (8.7-10.3); Carbon Dioxide 25.8 mmol/L (21.6-31.8); Non-African American GFR(CKD) 81.4 (60.0-200.0); Potassium 4.4 mmol/L (3.5-5.5); Total Bilirubin 0.6 mg/dL (0.2-1.2)
== END | disposition home or self-care (01) ==
LOC: LABWHC1 13:12
PROVIDERS: ATTEND Family Medicine
DX: R53.83 Other fatigue (principal); E87.1 Hypo-osmolality and hyponatremia; E53.8 Deficiency of other specified B group vitamins; I10 Essential (primary) hypertension
CPT/HCPCS: 36415; 80053; 85027

== ENCOUNTER → 2021-02-14 | Outpatient (CLI) | payer MEDICARE, BC ==
[2021-02-14 20:46] LABS: African American GFR (CKD) 94.3 (60.0-200.0); Anion Gap 14.8 mmol/L (4.00-12.00); BUN/Creat Ratio 27.83 Ratio (12.00-20.00); Blood Urea Nitrogen 16.7 mg/dL (9.0-27.0); Calcium 8.8 mg/dL (8.7-10.3); Carbon Dioxide 22.2 mmol/L (21.6-31.8); Non-African American GFR(CKD) 81.4 (60.0-200.0)
== END | disposition home or self-care (01) ==
LOC: LABWHC1 13:54
PROVIDERS: ATTEND Family Medicine
DX: E87.1 Hypo-osmolality and hyponatremia (principal)
CPT/HCPCS: 36415; 80048

== ENCOUNTER → 2021-05-18 | Outpatient (CLI) | payer MEDICARE, BC ==
--- NOTE | 2021-05-22 09:19 | MM ---
Reason for exam: screening (asymptomatic). Last mammogram was performed 2 years and 7 months ago. History: Patient is postmenopausal. Cyst aspiration of the right breast, 1993. Took estrogen beginning at age 60. Physical Findings: A clinical breast exam by your physician is recommended on an annual basis and results should be correlated with mammographic findings. MG 3D Screening Mammo W/Cad Bilateral CC and MLO view(s) were taken. Prior study comparison: October 30, 2018, bilateral MG screening mammo w CAD. May 17, 2015, bilateral MG screening mammo w CAD. There are scattered fibroglandular densities. No significant changes when compared with prior studies. ASSESSMENT: Benign, BI-RAD 2 RECOMMENDATION: Routine screening mammogram of both breasts in 1 year.
== END | disposition home or self-care (01) ==
LOC: RADMAMWWP 14:32
PROVIDERS: ATTEND Family Medicine
DX: Z12.31 Encounter for screening mammogram for malignant neoplasm of breast (principal); Z78.0 Asymptomatic menopausal state
CPT/HCPCS: 77063; 77067

== ENCOUNTER → 2021-07-06 | Outpatient (CLI) | payer MEDICARE, BC ==
--- NOTE | 2021-07-06 14:10 | XR ---
EXAMINATION TYPE: XR foot complete LT, 3 views DATE OF EXAM: 07/06/2021 Comparison: None Clinical History: 89-year-old female M79.675 Left 2nd metatarsal pain Findings: Mild to moderate degenerative change first MTP joint with joint space narrowing and marginal spurring . Mild bunion formation. Some vascular calcifications are present. Some dorsal soft tissue swelling. Additional anterior and lateral ankle soft tissue swelling suggested. Osteopenia. Subtalar joint alig n. Some sclerosis of the tibial sesamoid may represent sesamoiditis. No acute fracture, subluxation, or dislocation seen. Impression: 1. Osteopenia. Sclerotic tibial sesamoid may reflect sesamoiditis. Mild to moderate first MTP joint O A with mild bunion. 2. Dorsal soft tissue swelling also along the anterior and lateral aspect of the ankle. Clinically co rrelate.
== END | disposition home or self-care (01) ==
LOC: RADXRMAIN 11:38
PROVIDERS: ATTEND Family Medicine
DX: M85.872 Other specified disorders of bone density and structure, left ankle and foot (principal); M19.072 Primary osteoarthritis, left ankle and foot; M21.612 Bunion of left foot; M79.89 Other specified soft tissue disorders

== ENCOUNTER → 2021-10-11 | Outpatient (CLI) | payer MEDICARE, BC ==
--- NOTE | 2021-10-12 07:29 | US ---
EXAMINATION TYPE: US thyroid st tissue head/neck DATE OF EXAM: 10/11/2021 COMPARISON: NONE CLINICAL HISTORY: E04.1 THYROID NODULE. THYROID NODULE GLAND SIZE: Right Lobe: 4.2 x 2.2 x 1.5cm Overall Parenchyma: heterogenous Left Lobe: 4.3 x 1.4 x 1.3cm Overall Parenchyma: heterogeneous Isthmus Thickness: 0.3cm NODULES RIGHT: # of nodules measured on right: 2 1. 1.8 x 1.3 x 1.4cm, mid , mixed cystic and solid, hypoechoic nodule, which is wider than tall, wit h smooth margins, without echogenic foci. 2. 1.6 x 1.0 x 1.4cm, lower , mixed cystic and solid, hypoechoic nodule, which is wider than tall, w ith smooth margins, with echogenic foci. LEFT: # of nodules measured on left: 2 1. 0.7 x 0.4 x 0.6cm, upper mid, spongiform, hypoechoic nodule, which is wider than tall, with ill-de fined margins, with echogenic foci. 2. 0.8x 0.5 x 0.4 cm, lower mid, solid or almost completely solid, appears calcified with posterior shadowing, hyperechoic nodule, which is taller than wide, with ill-defined margins, with echogenic f oci. Multiple nodules seen throughout thyroid Bilateral neck scanned, no evidence of lymphadenopathy. IMPRESSION: Multiple bilateral nonspecific nodules some of which are greater than 1 cm in size. The need to biops y should be made on clinical basis.
== END | disposition home or self-care (01) ==
LOC: RADUSWWP 15:28
PROVIDERS: ATTEND Family Medicine
DX: E04.2 Nontoxic multinodular goiter (principal)
CPT/HCPCS: 76536

== ENCOUNTER → 2021-10-18 | Outpatient (CLI) | payer MEDICARE, BC ==
--- NOTE | 2021-10-18 11:02 | XR ---
EXAMINATION TYPE: XR knee complete bilateral DATE OF EXAM: 10/18/2021 CLINICAL HISTORY: Bilateral knee pain. TECHNIQUE: Three views of the bilateral knees are obtained. COMPARISON: Prior bilateral knee x-ray July 20, 2014. FINDINGS: There is no acute fracture/dislocation evident in either knee. 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 No new suspicious surrounding lucency. Position stable. Moderate medial tibiofemoral compartment narrowing left knee and moderate narrowing patellof emoral compartment left knee redemonstrated is now mild to moderate posterior arterial vascular calci fication present bilaterally. IMPRESSION: As above.
--- NOTE | 2021-10-18 11:07 | XR ---
EXAMINATION TYPE: XR chest 2V DATE OF EXAM: 10/18/2021 COMPARISON: Chest x-ray April 11, 2020 HISTORY: CHF. TECHNIQUE: Frontal and lateral views of the chest are obtained. FINDINGS: There is no suspicious narrowing focal air space opacity, pleural effusion, or pneumothora x seen. Cardiomegaly redemonstrated with atherosclerotic change aortic knob. Cholecystectomy clips re demonstrated. Surgical change lumbar spine is partially imaged. IMPRESSION: Cardiomegaly without acute pulmonary process.
--- NOTE | 2021-10-18 11:47 | XR ---
EXAMINATION TYPE: XR Hip Bilateral Complete DATE OF EXAM: 10/18/2021 CLINICAL HISTORY: Bilateral hip pain. TECHNIQUE: AP and frogleg views of the bilateral hips are obtained. COMPARISON: Prior bilateral hip x-rays April 04, 2020. FINDINGS: There is no acute fracture/dislocation evident in either mild to moderate axial joint spac e loss in both hips slightly greater in the right hip with mild acetabular spurring bilaterally is re demonstrated. Right hip findings slightly more prominent from prior x-ray. There are bilateral pelvic phleboliths and vascular calcification along with heterotopic ossification along the right iliac bon e all redemonstrated. IMPRESSION: As above.
== END | disposition home or self-care (01) ==
LOC: RADXRMAIN 10:08
PROVIDERS: ATTEND Family Medicine
DX: M16.0 Bilateral primary osteoarthritis of hip (principal); M25.562 Pain in left knee; I51.7 Cardiomegaly
CPT/HCPCS: 71046; 73521

== ENCOUNTER 2021-11-02 18:06 | Inpatient (IN) | payer MEDICARE, BC ==
[2021-11-02] MEDS ORDERED: SODIUM CHLORIDE 0.9% 1,000 ML IV STA (18:16)
[2021-11-02] MEDS ORDERED: SODIUM CHLORIDE 0.9% 500 ML 500 ML IV STA (18:16)
--- NOTE | 2021-11-02 18:20 | ED ---
General Adult HPI - General Stated complaint: Dizziness,hypotension Time Seen by Provider: 11/02/21 18:10 Source: patient, EMS, RN notes reviewed, old records reviewed Mode of arrival: EMS - History of Present Illness Initial comments: 82-year-old female history of hypertension and renal insufficiency and hyponatremia hypothyroidism who recently had a change of blood pressure medication from 20 mg of Lasix per day to 40 mg of Lasix for which she took the first dose this morning who presents with complaints of dizziness some blurred or black television that occurred about 30 minutes prior to EMS arrival. She was found have a blood pressure of 85/45. The episode lasted approximately 30 minutes for the patient. She still somewhat dizzy she was given 150 mL of saline repeat blood pressure 107/51 she denies any fevers chills nausea vomiting sweats she does have chronic shoulder and extremity pain she does have a history of spinal stenosis. She states she is scheduled to see Dr. Keating for evaluation soon - Related Data Home Medications Medication Instructions Recorded Confirmed ALPRAZolam 1 mg PO BID PRN 12/07/14 11/02/21 Levothyroxine Sodium [Synthroid] 25 mcg PO DAILY 05/13/18 11/02/21 Omeprazole Magnesium [PriLOSEC OTC] 20 mg PO DAILY 08/28/19 11/02/21 Furosemide [Lasix] 40 mg PO DAILY 11/02/21 11/02/21 Losartan-Hctz 50-12.5 mg [Hyzaar 1 tab PO DAILY 11/02/21 11/02/21 50-12.5] Mirabegron [Myrbetriq] 25 mg PO DAILY 11/02/21 11/02/21 Potassium Chloride ER [K-Dur 20] 20 meq PO DAILY 11/02/21 11/02/21 Sodium Bicarbonate 325 mg PO DAILY 11/02/21 11/02/21 Allergies Allergy/AdvReac Type Severity Reaction Status Date / Time ciprofloxacin [From Cipro] Allergy Rash/Hives/ Verified 11/02/21 20:05 Nausea ciprofloxacin HCl Allergy Rash/Hives/ Verified 11/02/21 20:05 [From Cipro] Nausea doxycycline Allergy Rash/Hives Verified 11/02/21 20:05 esomeprazole magnesium Allergy Rash/Hives Verified 11/02/21 20:05 [From Vimovo] fesoterodine [From Toviaz] Allergy Unknown Verified 11/02/21 20:05 fluconazole Allergy Rash/Hives Verified 11/02/21 20:05 hydrocodone bitartrate Allergy Hallucinati Verified 11/02/21 20:05 [From Vicodin] ons naproxen [From Vimovo] Allergy Rash/Hives Verified 11/02/21 20:05 penicillin G Allergy Rash/Hives Verified 11/02/21 20:06 sulfamethoxazole Allergy Rash/Hives Verified 11/02/21 20:05 [From Bactrim] tramadol Allergy Unknown Verified 11/02/21 20:05 trimethoprim [From Bactrim] Allergy Rash/Hives Verified 11/02/21 20:05 hydrocodone [From [place]] AdvReac HEADACHE Verified 11/02/21 20:05 levofloxacin [From Levaquin] AdvReac Itching Verified 11/02/21 20:05 mirabegron [From Myrbetriq] AdvReac HEADACHE/BLURRED Verified 11/02/21 20:05 VISION oxybutynin AdvReac BLURRED Verified 11/02/21 20:05 VISION phenazopyridine AdvReac Itching Verified 11/02/21 20:05 Review of Systems ROS Statement: Those systems with pertinent positive or pertinent negative responses have been documented in the HPI. ROS Other: All systems not noted in ROS Statement are negative. Past Medical History Past Medical History: GERD/Reflux, Hearing Disorder / Deafness, Hypertension, Osteoarthritis (OA), Pulmonary Embolus (PE), Thyroid Disorder Additional Past Medical History / Comment(s): 12-07-14 admitted to [facility] with c/o chest pain. other hx:hiatal hernia, PE AFTER KNEE SX, INCONT OF URINE, DEAF RT EAR [place] LT WEARS HEARING AID,UPPER DENTURE AND WEARS GLASSES TO READ. History of Any Multi-Drug Resistant Organisms: None Reported Past Surgical History: Cholecystectomy, Heart Catheterization, Hysterectomy, Joint Replacement, Tonsillectomy Additional Past Surgical History / Comment(s): cochlear implant, acoustic tumor removed rt ear 2010, egd/colonoscopy, rt carpal tunnel, rt knee replacement, SHAMEKA CATARACTS Past Anesthesia/Blood Transfusion Reactions: No Reported Reaction Past Psychological History: Anxiety, Depression Smoking Status: Never smoker Past Alcohol Use History: Rare Past Drug Use History: None Reported - Past Family History Father Family Medical History: Dementia Mother Family Medical History: Cancer, Hypertension Additional Family Medical History / Comment(s): from lung cancer Brother(s) Family Medical History: Diabetes Mellitus Sister(s) Family Medical History: Cancer Additional Family Medical History / Comment(s): BRAIN Son(s) Family Medical History: Coronary Artery Disease (CAD) General Exam - General Exam Comments Initial Comments: This is a well-developed well-nourished awake alert oriented 4 female General appearance: alert, anxious Head exam: Present: atraumatic, normocephalic, normal inspection Eye exam: Present: normal appearance, PERRL, EOMI. Absent: scleral icterus, conjunctival injection, periorbital swelling ENT exam: Present: mucous membranes dry Neck exam: Present: normal inspection, full ROM, other (No stridor JVD or bruits). Absent: tenderness, meningismus, lymphadenopathy Respiratory exam: Present: normal lung sounds bilaterally. Absent: respiratory distress, wheezes, rales, rhonchi, stridor Cardiovascular Exam: Present: regular rate, normal rhythm, normal heart sounds. Absent: systolic murmur, diastolic murmur, rubs, gallop, clicks GI/Abdominal exam: Present: soft, normal bowel sounds. Absent: distended, tenderness, guarding, rebound, rigid, bruit, pulsatile mass Extremities exam: Present: normal inspection, full ROM, normal capillary refill. 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 Absent: motor sensory deficit Psychiatric exam: Present: normal affect, anxious Skin exam: Present: warm, dry, intact, normal color. Absent: rash Course Vital Signs 11/02/21 18:23 Temperature 97.7 F Pulse Rate 75 Respiratory 18 Rate Blood Pressure 102/73 O2 Sat by Pulse 97 Oximetry EKG Findings - EKG Results: EKG: interpreted by CAYLA, sinus rhythm (Sinus rhythm a 71 IA interval 196 QRS duration 99 QT since QTC 405/427 this is a normal-appearing EKG several heart attacks and V6.) Medical Decision Making - Medical Decision Making I did discuss findings with patient family patient will be admitted case discussed with Dr. Nesbitt covering for Dr. amrquez. Patient does demonstrate evidence of dehydration hypokalemia and hyponatremia. Of note patient did start her sodium pills today with a first and being taken this morning. The CT negative for PE. - Lab Data Result diagrams: 11/02/21 18:43 11/02/21 18:43 Lab Results 11/02/21 11/02/21 11/02/21 Range/Units 18:43 18:43 18:43 WBC 10.2 (3.8-10.6) k/uL RBC 4.03 (3.80-5.40) m/uL Hgb 12.1 (11.4-16.0) gm/dL Hct 36.1 (34.0-46.0) % MCV 89.5 (80.0-100.0) fL MCH 29.9 (25.0-35.0) pg MCHC 33.4 (31.0-37.0) g/dL RDW 13.0 (11.5-15.5) % Plt Count 284 (150-450) k/uL MPV 8.1 Neutrophils % 81 % Lymphocytes % 11 % Monocytes % 6 % Eosinophils % 1 % Basophils % 1 % Neutrophils # 8.2 H (1.3-7.7) k/uL Lymphocytes # 1.1 (1.0-4.8) k/uL Monocytes # 0.6 (0-1.0) k/uL Eosinophils # 0.1 (0-0.7) k/uL Basophils # 0.1 (0-0.2) k/uL D-Dimer 1.53 H (<0.60) mg/L FEU Sodium 121 L (137-145) mmol/L Potassium 2.8 L (3.5-5.1) mmol/L Chloride 82 L (98-107) mmol/L Carbon Dioxide 32 H (22-30) mmol/L Anion Gap 7 mmol/L BUN 29 H (7-17) mg/dL Creatinine 0.82 (0.52-1.04) mg/dL Est GFR (CKD-EPI)AfAm 74 (>60 ml/min/1.73 sqM) Est GFR (CKD-EPI)NonAf 64 (>60 ml/min/1.73 sqM) Glucose 137 H (74-99) mg/dL Plasma Lactic Acid Saeid (0.7-2.0) mmol/L Calcium 9.2 (8.4-10.2) mg/dL Magnesium 1.9 (1.6-2.3) mg/dL Total Bilirubin 0.5 (0.2-1.3) mg/dL AST 31 (14-36) U/L ALT 18 (4-34) U/L Alkaline Phosphatase 58 (38-126) U/L Creatine Kinase 100 (30-135) U/L Troponin I (0.000-0.034) ng/mL Total Protein 6.0 L (6.3-8.2) g/dL Albumin 3.7 (3.5-5.0) g/dL 11/02/21 11/02/21 Range/Units 18:43 18:43 WBC (3.8-10.6) k/uL RBC (3.80-5.40) m/uL Hgb (11.4-16.0) gm/dL Hct (34.0-46.0) % MCV (80.0-100.0) fL MCH (25.0-35.0) pg MCHC (31.0-37.0) g/dL RDW (11.5-15.5) % Plt Count (150-450) k/uL MPV Neutrophils % % Lymphocytes % % Monocytes % % Eosinophils % % Basophils % % Neutrophils # (1.3-7.7) k/uL Lymphocytes # (1.0-4.8) k/uL Monocytes # (0-1.0) k/uL Eosinophils # (0-0.7) k/uL Basophils # (0-0.2) k/uL D-Dimer (<0.60) mg/L FEU Sodium (137-145) mmol/L Potassium (3.5-5.1) mmol/L Chloride (98-107) mmol/L Carbon Dioxide (22-30) mmol/L Anion Gap mmol/L BUN (7-17) mg/dL Creatinine (0.52-1.04) mg/dL Est GFR (CKD-EPI)AfAm (>60 ml/min/1.73 sqM) Est GFR (CKD-EPI)NonAf (>60 ml/min/1.73 sqM) Glucose (74-99) mg/dL Plasma Lactic Acid Saeid 1.6 (0.7-2.0) mmol/L Calcium (8.4-10.2) mg/dL Magnesium (1.6-2.3) mg/dL Total Bilirubin (0.2-1.3) mg/dL AST (14-36) U/L ALT (4-34) U/L Alkaline Phosphatase (38-126) U/L Creatine Kinase (30-135) U/L Troponin I <0.012 (0.000-0.034) ng/mL Total Protein (6.3-8.2) g/dL Albumin (3.5-5.0) g/dL - Radiology Data Radiology results: report reviewed (Imaging reviewed no evidence of acute findings), image reviewed Disposition Clinical Impression: Dehydration, Hyponatremia, Hypokalemia, Weakness, Hypotensive episode, Elevated d-dimer Disposition: ADMITTED IP TO [facility] Condition: Fair Referrals: Juan A Dey DO [Primary Care Provider] - 1-2 days Decision Date: 11/02/21 Decision Time: 20:45
[2021-11-02 19:09] LABS: Albumin 3.7 g/dL (3.5-5.0); Calcium 9.2 mg/dL (8.4-10.2); Magnesium 1.9 mg/dL (1.6-2.3); Potassium 2.8 mmol/L (3.5-5.1); Total Bilirubin 0.5 mg/dL (0.2-1.3)
[2021-11-02 19:15] LABS: Basophils # (A) 0.1 k/uL (0-0.2); Basophils % (A) 1 %; Eosinophils # (A) 0.1 k/uL (0-0.7); Eosinophils % (A) 1 %; HCT 36.1 % (34.0-46.0); HGB 12.1 gm/dL (11.4-16.0); Lymphocytes # (A) 1.1 k/uL (1.0-4.8); Lymphocytes % (A) 11 %; MCH 29.9 pg (25.0-35.0); MCHC 33.4 g/dL (31.0-37.0); MCV 89.5 fL (80.0-100.0); Mean Platelet Volume 8.1; Monocytes # (A) 0.6 k/uL (0-1.0); Monocytes % (A) 6 %; Neutrophils # (A) 8.2 k/uL (1.3-7.7); Neutrophils % (A) 81 %; Platelet Count 284 k/uL (150-450); RBC 4.03 m/uL (3.80-5.40); WBC 10.2 k/uL (3.8-10.6)
--- NOTE | 2021-11-02 19:19 | XR ---
EXAMINATION: XR chest 2V DATE AND TIME: 11/02/2021 6:56 PM CLINICAL INDICATION: Dizziness; Hypotension TECHNIQUE: Departmental protocol COMPARISON: 10/18/2021 FINDINGS: There is ill-defined added opacity in the retrocardiac lung, consistent with partial left lower lobe airlessness correlate with a clinical diagnosis of partial left lower lobe bronchopneumonia. Remainde r of the lungs appear well-expanded and clear bilaterally. The pleural spaces are negative. The cardiac silhouette is not enlarged. The remainder of the mediastinal silhouette is unremarkable. The skeletal structures and soft tissues are negative for acute findings. IMPRESSION: Left lower lobe airlessness.
[2021-11-02] MEDS ORDERED: POTASSIUM CHLORIDE 20 MEQ in WATER FOR INJECTION 1 100ML.BAG IVPB STA (19:30)
--- NOTE | 2021-11-02 20:51 | CT ---
EXAMINATION TYPE: CT ANGIO CHEST CONTRAST, without 3-D reconstruction renderings workstation DATE OF EXAM: 11/02/2021 COMPARISON: CT chest radiograph. HISTORY: PE Suspected CT DLP: 285.2 mGycm. Automated Exposure Control for Dose Reduction was Utilized. CONTRAST: CTA scan of the thorax is performed without and with IV Contrast, patient injected with 100 ml mL of Isovue 370. MIP Images are created on CT scanner and reviewed. FINDINGS: AIRWAYS: Unremarkable. LUNGS: No acute process. Specifically, no retrocardiac bronchopneumonia. There is a 2 cm and opacity consistent with subsegmental atelectasis. PLEURAL SPACES: Negative. MEDIASTINUM: There is satisfactory enhancement of the pulmonary artery and its branches, without CT e vidence for pulmonary embolism. There is noted to aortic process. Coronary calcifications are noted. Mild cardiomegaly. No pericardial effusion. No adenopathy. OTHER: Gas is seen dependently within the liver, presumably secondary to prior biliary sphincterotomy ; history corroboration requested. IMPRESSION: Negative for pulmonary embolism.
[2021-11-02 21:04] LABS: Glucose,Whole Blood 127 mg/dL (70-110)
[2021-11-02] MEDS ORDERED: ONDANSETRON 4 MG/2 ML VIAL IVP PRN (21:12)
[2021-11-02] MEDS ORDERED: NALOXONE 0.4 MG/ML 1 ML VIAL IV PRN (21:12)
[2021-11-02] MEDS: ACETAMINOPHEN TAB 325 MG TAB PO PRN (23:11)
[2021-11-02] MEDS: ALPRAZolam 1 MG TAB PO PRN (23:11)
[2021-11-03] MEDS: SODIUM CHLORIDE 0.9% 1,000 ML IV SCH ×4 (04:22→17:24)
[2021-11-03] MEDS: LEVOTHYROXINE 25 MCG TAB PO SCH (06:17)
[2021-11-03] MEDS: PANTOPRAZOLE 40 MG TABLET PO SCH (06:17)
[2021-11-03] MEDS ORDERED: LOSARTAN-HCTZ 50-12.5 MG 1 EACH TAB PO SCH (09:00)
[2021-11-03] MEDS: SODIUM BICARBONATE TAB 650 MG TAB PO SCH (09:37)
[2021-11-03] MEDS: POTASSIUM CHLORIDE ER 20 MEQ TAB.ER PO SCH ×3 (09:37→18:32)
[2021-11-03] MEDS: NON FORMULARY DRUG (Mirabegron [Myrbetriq] 25 MG Tab.Er.24h) PO SCH (09:38)
[2021-11-03 10:01] LABS: Basophils % (A) 1 %; Eosinophils # (A) 0.1 k/uL (0-0.7); Eosinophils % (A) 1 %; HCT 36.9 % (34.0-46.0); Lymphocytes # (A) 1.3 k/uL (1.0-4.8); Lymphocytes % (A) 17 %; MCHC 32.5 g/dL (31.0-37.0); MCV 89.3 fL (80.0-100.0); Mean Platelet Volume 7.4; Monocytes # (A) 0.5 k/uL (0-1.0); Monocytes % (A) 6 %; Neutrophils # (A) 5.6 k/uL (1.3-7.7); Neutrophils % (A) 74 %; Platelet Count 286 k/uL (150-450); RBC 4.13 m/uL (3.80-5.40); RDW 12.7 % (11.5-15.5); WBC 7.6 k/uL (3.8-10.6)
[2021-11-03 10:14] LABS: ALT 17 U/L (4-34); AST 30 U/L (14-36); African American GFR (CKD) >90 (>60 ml/min/1.73 sqM); Albumin 3.5 g/dL (3.5-5.0); Alkaline Phosphatase 55 U/L (38-126); Anion Gap 2 mmol/L; Blood Urea Nitrogen 18 mg/dL (7-17); Calcium 8.7 mg/dL (8.4-10.2); Carbon Dioxide 29 mmol/L (22-30); Chloride 93 mmol/L (98-107); Glucose 109 mg/dL (74-99); Magnesium 1.9 mg/dL (1.6-2.3); Non-African American GFR(CKD) 84 (>60 ml/min/1.73 sqM); Potassium 3.2 mmol/L (3.5-5.1); Sodium 124 mmol/L (137-145); Total Bilirubin 0.7 mg/dL (0.2-1.3)
--- NOTE | 2021-11-03 10:56 | P.HPIM ---
History of Present Illness This is a pleasant 89 years old female with past medical history of hypertension, hypothyroidism, GERD, osteoarthritis, pulmonary embolism NOT on anticoagulation, hearing difficulty. Patient presents because she was blurred vision yesterday, also shows some questionable dizziness and borderline blood pressure. She wants to see her PCP Dr. Dey to increase her level Lasix 20 mg up to 40 mg also she is on hydrochlorothiazide 12.5 mg. She denies chest pain or dyspnea or coughing. No diarrhea or vomiting. She is being allowed after started the Lasix but no dysuria. No headache or weakness or numbness No smoking, alcohol or illicit tracts Vitas looks stable, patient is afebrile. Blood pressure on admission 102/73, currently 125/67. Labs reviewed, CBC is unremarkable. D-dimer is 1.5. Sodium is 121, potassium 2.8, creatinine 0.8 and BUN is 29. Glucose 127. Liver enzymes not elevated. Troponin is negative CT of the chest: Negative for pulmonary embolism. No acute process in the lungs. Atelectasis. Chest x-ray: No acute process. EKG: Normal sinus rhythm at [address]-T changes. Review of Systems CONSTITUTIONAL: No fever, no malaise, no fatigue. HEENT: No recent visual problems or hearing problems. Denied any sore throat. CARDIOVASCULAR: No orthopnea, PND, no palpitations, no syncope. PULMONARY: No shortness of breath, no cough, no hemoptysis. GASTROINTESTINAL: No diarrhea, no nausea, no vomiting, no abdominal pain. Normoactive bowel sounds. NEUROLOGICAL: No headaches, no weakness, no numbness. HEMATOLOGICAL: Denies any bleeding or petechiae. GENITOURINARY: Denies any burning micturition, frequency, or urgency. MUSCULOSKELETAL/RHEUMATOLOGICAL: Denies any joint pain, swelling, or any muscle pain. ENDOCRINE: Denies any polyuria or polydipsia. Past Medical History Past Medical History: GERD/Reflux, Hearing Disorder / Deafness, Hypertension, Osteoarthritis (OA), Pulmonary Embolus (PE), Thyroid Disorder Additional Past Medical History / Comment(s): 12-07-14 admitted to [facility] with c/o chest pain. other hx:hiatal hernia, PE AFTER KNEE SX, INCONT OF URINE, DEAF RT EAR [place] LT WEARS HEARING AID,UPPER DENTURE AND WEARS GLASSES TO READ. History of Any Multi-Drug Resistant Organisms: None Reported Past Surgical History: Cholecystectomy, Heart Catheterization, Hysterectomy, Joint Replacement, Tonsillectomy Additional Past Surgical History / Comment(s): cochlear implant, acoustic tumor removed rt ear 2011, egd/colonoscopy, rt carpal tunnel, rt knee replacement, SHAMEKA CATARACTS Past Anesthesia/Blood Transfusion Reactions: No Reported Reaction Smoking Status: Never smoker - Past Family History Father Family Medical History: Dementia Mother Family Medical History: Cancer, Hypertension Additional Family Medical History / Comment(s): from lung cancer Brother(s) Family Medical History: Diabetes Mellitus Sister(s) Family Medical History: Cancer Additional Family Medical History / Comment(s): BRAIN Son(s) Family Medical History: Coronary Artery Disease (CAD) Medications and Allergies Home Medications Medication Instructions Recorded Confirmed Type ALPRAZolam 1 mg PO BID PRN 12/07/14 11/02/21 History Levothyroxine Sodium [Synthroid] 25 mcg PO DAILY 05/13/18 11/02/21 History Omeprazole Magnesium [PriLOSEC OTC] 20 mg PO DAILY 08/28/19 11/02/21 History Furosemide [Lasix] 40 mg PO DAILY 11/02/21 11/02/21 History Losartan-Hctz 50-12.5 mg [Hyzaar 1 tab PO DAILY 11/02/21 11/02/21 History 50-12.5] Mirabegron [Myrbetriq] 25 mg PO DAILY 11/02/21 11/02/21 History Potassium Chloride ER [K-Dur 20] 20 meq PO DAILY 11/02/21 11/02/21 History Sodium Bicarbonate 325 mg PO DAILY 11/02/21 11/02/21 History Allergies Allergy/AdvReac Type Severity Reaction Status Date / Time ciprofloxacin [From Cipro] Allergy Rash/Hives/ Verified 11/02/21 20:05 Nausea ciprofloxacin HCl Allergy Rash/Hives/ Verified 11/02/21 20:05 [From Cipro] Nausea doxycycline Allergy Rash/Hives Verified 11/02/21 20:05 esomeprazole magnesium Allergy Rash/Hives Verified 11/02/21 20:05 [From Vimovo] fesoterodine [From Toviaz] Allergy Unknown Verified 11/02/21 20:05 fluconazole Allergy Rash/Hives Verified 11/02/21 20:05 hydrocodone bitartrate Allergy Hallucinati Verified 11/02/21 20:05 [From Vicodin] ons naproxen [From Vimovo] Allergy Rash/Hives Verified 11/02/21 20:05 penicillin G Allergy Rash/Hives Verified 11/02/21 20:06 sulfamethoxazole Allergy Rash/Hives Verified 11/02/21 20:05 [From Bactrim] tramadol Allergy Unknown Verified 11/02/21 20:05 trimethoprim [From Bactrim] Allergy Rash/Hives Verified 11/02/21 20:05 hydrocodone [From [place]] AdvReac HEADACHE Verified 11/02/21 20:05 levofloxacin [From Levaquin] AdvReac Itching Verified 11/02/21 20:05 mirabegron [From Myrbetriq] AdvReac HEADACHE/BLURRED Verified 11/02/21 20:05 VISION oxybutynin AdvReac BLURRED Verified 11/02/21 20:05 VISION phenazopyridine AdvReac Itching Verified 11/02/21 20:05 Physical Exam Vitals: Vital Signs Temp Pulse Pulse Resp BP BP Pulse Ox 11/03/21 04:00 97.5 F L 71 16 99/53 93 L 11/03/21 02:00 71 16 11/02/21 23:20 97.6 F 76 18 138/61 94 L 11/02/21 22:41 97.5 F L 71 18 142/65 97 11/02/21 22:07 78 16 120/58 96 11/02/21 21:38 72 18 116/53 97 11/02/21 18:23 97.7 F 75 18 102/73 97 Intake and Output 11/02/21 11/03/21 11/03/21 22:59 06:59 14:59 Intake Total 1680 118 Output Total 800 Balance 880 118 Intake: Intake, IV Titration 1140 Amount Potassium Chloride 20 meq 100 In Water For Injection 1 100ml.bag @ 50 mls/hr IVPB ONCE STA Rx#: [id number] Sodium Chloride 0.9% 1, 1040 000 ml @ 130 mls/hr IV . Q7H42M [facility] Rx#:[id number] Oral 540 118 Output: Urine 800 Other: Voiding Method External Catheter Weight 65.771 kg GENERAL: The patient is alert and oriented x3, not in any acute distress. Well developed, well nourished. HEENT: Pupils are round and equally reacting to light. EOMI. No scleral icterus. No conjunctival pallor. Normocephalic, atraumatic. No pharyngeal erythema. No thyromegaly. CARDIOVASCULAR: S1 and S2 present. No murmurs, rubs, or gallops. PULMONARY: Chest is clear to auscultation, no wheezing or crackles. ABDOMEN: Soft, nontender, nondistended, normoactive bowel sounds. No palpable organomegaly. MUSCULOSKELETAL: No joint swelling or deformity. EXTREMITIES: No cyanosis, clubbing, or pedal edema. NEUROLOGICAL: Gross neurological examination did not reveal any focal deficits. SKIN: No rashes. No petechiae Results CBC & Chem 7: 11/03/21 09:43 11/03/21 09:43 Labs: Abnormal Lab Results - Last 24 Hours (Table) 11/02/21 11/02/21 11/02/21 Range/Units 18:43 18:43 18:43 Neutrophils # 8.2 H (1.3-7.7) k/uL D-Dimer 1.53 H (<0.60) mg/L FEU Sodium 121 L (137-145) mmol/L Potassium 2.8 L (3.5-5.1) mmol/L Chloride 82 L (98-107) mmol/L Carbon Dioxide 32 H (22-30) mmol/L BUN 29 H (7-17) mg/dL Glucose 137 H (74-99) mg/dL POC Glucose (mg/dL) (70-110) mg/dL Total Protein 6.0 L (6.3-8.2) g/dL 11/02/21 Range/Units 21:03 Neutrophils # (1.3-7.7) k/uL D-Dimer (<0.60) mg/L FEU Sodium (137-145) mmol/L Potassium (3.5-5.1) mmol/L Chloride (98-107) mmol/L Carbon Dioxide (22-30) mmol/L BUN (7-17) mg/dL Glucose (74-99) mg/dL POC Glucose (mg/dL) 127 H (70-110) mg/dL Total Protein (6.3-8.2) g/dL Thrombosis Risk Factor Assmnt - Choose All That Apply Any of the Below Risk Factors Present?: Yes Each Factor Represents 1 point: Medical pt on bed rest, Obesity (BMI >25) Other Risk Factors: Yes Each Risk Factor Represents 2 Points: Patient confined to bed Each Risk Factor Represents 3 Points: Age 75 years or older, History of DVT/PE Other congenital or acquired thrombophilia - If yes, enter type in comment: No Thrombosis Risk Factor Assessment Total Risk Factor Score: 10 Thrombosis Risk Factor Assessment Level: High Risk Assessment and Plan Assessment: Hyponatremia, hypovolemic. Most likely secondary to diuretic use Hypokalemia, secondary to diuretics Hypertension, this time she has hypotension upon admission Hypothyroidism History of GERD History of posterior arthritis Chronic shoulder pain follow-up with orthopedic History of pulmonary embolism not on anticoagulation Hearing difficulty Plan: This is a pleasant 89 years old female who presents with hypertension and hyponatremia Hold hydrochlorothiazide and Lasix. Monitor sodium Nephrology consult Labs and medication were reviewed.. Continue same treatment. Continue with symptomatic treatment. Resume home medication. Monitor lytes and vitals. DVT and GI prophylaxis. Further recommendations depends on the clinical course of the patient DVT prophylaxis: Subcutaneous heparin GI Prophylaxis: Pepcid PT/OT: Pending Prognosis is guarded
[2021-11-03] MEDS ORDERED: Potassium Replacement Protocol 1 EACH MISC MISCELLANE PRN (16:05)
[2021-11-03] MEDS: HEPARIN SODIUM,PORCINE/PF 5,000 UNIT/0.5 ML SYRINGE SQ SCH (21:43)
[2021-11-03] MEDS: FAMOTIDINE 20 MG/2 ML VIAL IV SCH (21:43)
[2021-11-03] MEDS: ALPRAZolam 1 MG TAB PO PRN (23:17)
[2021-11-04] MEDS: LEVOTHYROXINE 25 MCG TAB PO SCH (05:47)
[2021-11-04 06:38] LABS: Basophils % (A) 1 %; Eosinophils # (A) 0.1 k/uL (0-0.7); Eosinophils % (A) 1 %; HCT 32.5 % (34.0-46.0); HGB 10.6 gm/dL (11.4-16.0); Lymphocytes # (A) 1.3 k/uL (1.0-4.8); Lymphocytes % (A) 22 %; MCH 29.8 pg (25.0-35.0); MCHC 32.7 g/dL (31.0-37.0); MCV 90.9 fL (80.0-100.0); Mean Platelet Volume 7.6; Monocytes # (A) 0.4 k/uL (0-1.0); Monocytes % (A) 6 %; Neutrophils # (A) 4.2 k/uL (1.3-7.7); Neutrophils % (A) 68 %; Platelet Count 276 k/uL (150-450); RBC 3.57 m/uL (3.80-5.40); RDW 13.1 % (11.5-15.5); WBC 6.1 k/uL (3.8-10.6)
[2021-11-04 06:53] LABS: African American GFR (CKD) >90 (>60 ml/min/1.73 sqM); Anion Gap 2 mmol/L; Blood Urea Nitrogen 10 mg/dL (7-17); Calcium 8.5 mg/dL (8.4-10.2); Carbon Dioxide 26 mmol/L (22-30); Chloride 103 mmol/L (98-107); Glucose 106 mg/dL (74-99); Non-African American GFR(CKD) >90 (>60 ml/min/1.73 sqM); Sodium 131 mmol/L (137-145)
[2021-11-04] MEDS: LOSARTAN 50 MG TAB PO SCH (08:04)
[2021-11-04] MEDS: SODIUM BICARBONATE TAB 650 MG TAB PO SCH (08:04)
[2021-11-04] MEDS: FAMOTIDINE 20 MG/2 ML VIAL IV SCH ×2 (08:05→20:55)
[2021-11-04] MEDS: POTASSIUM CHLORIDE ER 20 MEQ TAB.ER PO SCH (08:05)
[2021-11-04] MEDS: PANTOPRAZOLE 40 MG TABLET PO SCH (08:05)
[2021-11-04] MEDS: HEPARIN SODIUM,PORCINE/PF 5,000 UNIT/0.5 ML SYRINGE SQ SCH ×2 (08:05→20:55)
[2021-11-04] MEDS: SODIUM CHLORIDE 0.9% 1,000 ML IV SCH ×2 (08:05→23:06)
[2021-11-04] MEDS: NON FORMULARY DRUG (Mirabegron [Myrbetriq] 25 MG Tab.Er.24h) PO SCH (08:05)
[2021-11-04 15:57] LABS: Glucose,Whole Blood 133 mg/dL (70-110)
--- NOTE | 2021-11-04 16:14 | P.NPCON ---
History of Present Illness - Reason for Consult Consult date: 11/04/21 hyponatremia - Chief Complaint Shortness of breath - History of Present Illness Admitted to the hospital with shortness of breath, sodium was 121 on admission, improved to 131 today over a period of 48 hours. With shortness of breath had computed tomography scan with contrast, no pulmonary embolism. Poor historian most of the history is obtained from the chart. Currently on IV fluids. Renal function within normal limits. Review of Systems Constitutional: Reports as per HPI Past Medical History Past Medical History: GERD/Reflux, Hearing Disorder / Deafness, Hypertension, Osteoarthritis (OA), Pulmonary Embolus (PE), Thyroid Disorder Additional Past Medical History / Comment(s): 12-07-14 admitted to [facility] with c/o chest pain. other hx:hiatal hernia, PE AFTER KNEE SX, INCONT OF URINE, DEAF RT EAR [place] LT WEARS HEARING AID,UPPER DENTURE AND WEARS GLASSES TO READ. History of Any Multi-Drug Resistant Organisms: None Reported Past Surgical History: Cholecystectomy, Heart Catheterization, Hysterectomy, Joint Replacement, Tonsillectomy Additional Past Surgical History / Comment(s): cochlear implant, acoustic tumor removed rt ear 2010, egd/colonoscopy, rt carpal tunnel, rt knee replacement, [employer]AME[employer] CAT[employer]S Past Anesthesia/Blood Transfusion Reactions: No Reported Reaction Smoking Status: Never smoker - Past Family History Father Family Medical History: Dementia Mother Family Medical History: Cancer, Hypertension Additional Family Medical History / Comment(s): from lung cancer Brother(s) Family Medical History: Diabetes Mellitus Sister(s) Family Medical History: Cancer Additional Family Medical History / Comment(s): BRAIN Son(s) Family Medical History: Coronary Artery Disease (CAD) Medications and Allergies Home Medications Medication Instructions Recorded Confirmed Type ALPRAZolam 1 mg PO BID PRN 12/07/14 11/02/21 History Levothyroxine Sodium [Synthroid] 25 mcg PO DAILY 05/13/18 11/02/21 History Omeprazole Magnesium [PriLOSEC OTC] 20 mg PO DAILY 08/28/19 11/02/21 History Furosemide [Lasix] 40 mg PO DAILY 11/02/21 11/02/21 History Losartan-Hctz 50-12.5 mg [Hyzaar 1 tab PO DAILY 07/28/22 07/28/22 History 50-12.5] Mirabegron [Myrbetriq] 25 mg PO DAILY 11/02/21 11/02/21 History Potassium Chloride ER [K-Dur 20] 20 meq PO DAILY 11/02/21 11/02/21 History Sodium Bicarbonate 325 mg PO DAILY 11/02/21 11/02/21 History Allergies Allergy/AdvReac Type Severity Reaction Status Date / Time ciprofloxacin [From Cipro] Allergy Rash/Hives/ Verified 11/02/21 20:05 Nausea ciprofloxacin HCl Allergy Rash/Hives/ Verified 11/02/21 20:05 [From Cipro] Nausea doxycycline Allergy Rash/Hives Verified 11/02/21 20:05 esomeprazole magnesium Allergy Rash/Hives Verified 11/02/21 20:05 [From Vimovo] fesoterodine [From Toviaz] Allergy Unknown Verified 11/02/21 20:05 fluconazole Allergy Rash/Hives Verified 11/02/21 20:05 hydrocodone bitartrate Allergy Hallucinati Verified 11/02/21 20:05 [From Vicodin] ons naproxen [From Vimovo] Allergy Rash/Hives Verified 11/02/21 20:05 penicillin G Allergy Rash/Hives Verified 11/02/21 20:06 sulfamethoxazole Allergy Rash/Hives Verified 11/02/21 20:05 [From Bactrim] tramadol Allergy Unknown Verified 11/02/21 20:05 trimethoprim [From Bactrim] Allergy Rash/Hives Verified 11/02/21 20:05 hydrocodone [From [place]] AdvReac HEADACHE Verified 11/02/21 20:05 levofloxacin [From Levaquin] AdvReac Itching Verified 11/02/21 20:05 mirabegron [From Myrbetriq] AdvReac HEADACHE/BLURRED Verified 11/02/21 20:05 VISION oxybutynin AdvReac BLURRED Verified 11/02/21 20:05 VISION phenazopyridine AdvReac Itching Verified 11/02/21 20:05 Physical Exam Vitals: Vital Signs Temp Pulse Resp BP Pulse Ox 11/04/21 12:00 98.5 F 87 16 113/61 96 11/04/21 08:00 97.6 F 83 18 127/69 94 L 11/04/21 07:09 98.4 F 75 16 111/69 95 11/04/21 00:15 98.8 F 75 17 132/67 96 11/03/21 23:41 98.9 F 75 18 132/67 96 11/03/21 23:20 97.4 F L 87 17 123/67 93 L 11/03/21 20:00 73 73 H 11/03/21 19:26 97.9 F 78 16 105/58 97 Intake and Output 11/04/21 11/04/21 11/04/21 06:59 14:59 22:59 Other: Voiding Method External Catheter No acute distress S1-S2 heard Decreased breath sounds No edema Results - Lab Results Most recent lab results Calcium 8.5 mg/dL (8.4-10.2) 11/04/21 05:56 Magnesium 1.9 mg/dL (1.6-2.3) 11/03/21 09:43 11/04/21 05:56 11/04/21 05:56 Assessment and Plan Assessment: #1 hypernatremia suspect hypovolemia. #2 hypotension on admission. #3 normal renal function Plan: #1 continue with IV fluids. Sodium improving. #2 check labs in the morning # 3 avoid nephrotoxic agents. Continue with losartan for blood pressure.
--- NOTE | 2021-11-04 21:26 | P.PN ---
Subjective This is a pleasant 89 years old female with past medical history of hypertension, hypothyroidism, GERD, osteoarthritis, pulmonary embolism NOT on an ticoagulation, hearing difficulty. Patient presents because she was blurred vision yesterday, also shows some questionable dizziness and borderline blood pressure. She wants to see her PCP Dr. Dey to increase her level Lasix 20 mg up to 40 mg also she is on hydrochlorothiazide 12.5 mg. She denies chest pain or dyspnea or coughing. No diarrhea or vomiting. She is being allowed after started the Lasix but no dysuria. No headache or weakness or numbness No smoking, alcohol or illicit tracts Vitas looks stable, patient is afebrile. Blood pressure on admission 102/73, currently 125/67. Labs reviewed, CBC is unremarkable. D-dimer is 1.5. Sodium is 121, potassium 2.8, creatinine 0.8 and BUN is 29. Glucose 127. Liver enzymes not elevated. Troponin is negative CT of the chest: Negative for pulmonary embolism. No acute process in the lungs. Atelectasis. Chest x-ray: No acute process. EKG: Normal sinus rhythm at [address]-T changes. 11/04/2021 Patient awake and alert more comfortable, no more episodes of blurred vision or dizziness. Her sodium improved at 131. Continue with normal saline at 75 mL per hour At losartan for her blood pressure control which is part of her home medication. Objective - Vital Signs Vital signs: Vital Signs Temp 98.8 F 11/04/21 19:39 Pulse 83 11/04/21 19:39 Resp 15 11/04/21 19:39 BP 120/62 11/04/21 19:39 Pulse Ox 99 11/04/21 19:39 FiO2 Intake & Output 11/04/21 11/04/21 11/05/21 06:59 18:59 06:59 Intake Total 925 Output Total 800 Balance -800 925 Intake: Intake, IV Titration 925 Amount Sodium Chloride 0.9% 1, 925 000 ml @ 75 mls/hr IV . [id number] [facility] Rx#:[id number] Output: Urine 800 Other: Voiding Method Toilet External Catheter External Catheter # Bowel Movements 1 - Exam GENERAL: The patient is alert and oriented x3, not in any acute distress. Well developed, well nourished. HEENT: Pupils are round and equally reacting to light. EOMI. No scleral icterus. No conjunctival pallor. Normocephalic, atraumatic. No pharyngeal erythema. No thyromegaly. CARDIOVASCULAR: S1 and S2 present. No murmurs, rubs, or gallops. PULMONARY: Chest is clear to auscultation, no wheezing or crackles. ABDOMEN: Soft, nontender, nondistended, normoactive bowel sounds. No palpable organomegaly. MUSCULOSKELETAL: No joint swelling or deformity. EXTREMITIES: No cyanosis, clubbing, or pedal edema. NEUROLOGICAL: Gross neurological examination did not reveal any focal deficits. SKIN: No rashes. no petechiae. - Labs CBC & Chem 7: 11/04/21 05:56 11/04/21 05:56 Labs: Abnormal Lab Results - Last 24 Hours (Table) 11/04/21 11/04/21 11/04/21 Range/Units 05:56 05:56 15:55 RBC 3.57 L (3.80-5.40) m/uL Hgb 10.6 L (11.4-16.0) gm/dL Hct 32.5 L (34.0-46.0) % Sodium 131 L (137-145) mmol/L Creatinine 0.44 L (0.52-1.04) mg/dL Glucose 106 H (74-99) mg/dL POC Glucose (mg/dL) 133 H (70-110) mg/dL Assessment and Plan Assessment: Hyponatremia, hypovolemic. Most likely secondary to diuretic use Hypokalemia, secondary to diuretics Hypertension, this time she has hypotension upon admission Hypothyroidism History of GERD History of posterior arthritis Chronic shoulder pain follow-up with orthopedic History of pulmonary embolism not on anticoagulation Hearing difficulty Plan: This is a pleasant 89 years old female who presents with hypertension and hyponatremia Hold hydrochlorothiazide and Lasix. Monitor sodium Nephrology consult Labs and medication were reviewed.. Continue same treatment. Continue with symptomatic treatment. Resume home medication. Monitor lytes and vitals. DVT and GI prophylaxis. Further recommendations depends on the clinical course of the patient DVT prophylaxis: Subcutaneous heparin GI Prophylaxis: Pepcid PT/OT: Pending Prognosis is guarded
[2021-11-04] MEDS: ALPRAZolam 1 MG TAB PO PRN (22:31)
[2021-11-05] MEDS: LEVOTHYROXINE 25 MCG TAB PO SCH (05:48)
[2021-11-05] MEDS: SODIUM BICARBONATE TAB 650 MG TAB PO SCH (07:31)
[2021-11-05] MEDS: PANTOPRAZOLE 40 MG TABLET PO SCH (07:31)
[2021-11-05] MEDS: LOSARTAN 50 MG TAB PO SCH (07:31)
[2021-11-05] MEDS: POTASSIUM CHLORIDE ER 20 MEQ TAB.ER PO SCH (07:31)
[2021-11-05] MEDS: FAMOTIDINE 20 MG/2 ML VIAL IV SCH (07:32)
[2021-11-05] MEDS: HEPARIN SODIUM,PORCINE/PF 5,000 UNIT/0.5 ML SYRINGE SQ SCH ×2 (07:32→20:58)
[2021-11-05] MEDS: NON FORMULARY DRUG (Mirabegron [Myrbetriq] 25 MG Tab.Er.24h) PO SCH (07:32)
[2021-11-05 09:29] LABS: Magnesium 1.7 mg/dL (1.5-2.4)
[2021-11-05 09:31] LABS: Basophils # (A) 0.07 X 10*3/uL (0.00-0.10); Basophils % (A) 0.9 %; Eosinophils # (A) 0.14 X 10*3/uL (0.04-0.35); Eosinophils % (A) 1.8 %; HCT 33.4 % (37.2-46.3); HGB 10.2 g/dL (12.0-15.0); Immature Grans, Automated 0.5 %; Lymphocytes # (A) 1.43 X 10*3/uL (0.90-5.00); Lymphocytes % (A) 18.4 %; MCH 27.7 pg (27.0-32.0); MCHC 30.5 g/dL (32.0-37.0); MCV 90.8 fL (80.0-97.0); Mean Platelet Volume 10.3 fL (9.5-12.2); Monocytes # (A) 0.65 X 10*3/uL (0.20-1.00); Monocytes % (A) 8.4 %; NRBC Per 100 WBC 0 /100 WBCS (0.0-0.0); Neutrophils # (A) 5.44 X 10*3/uL (1.80-7.70); Platelet Count 252 X 10*3/uL (140-440); RBC 3.68 X 10*6/uL (4.10-5.20); RDW 12.6 % (11.5-14.5); WBC 7.77 X 10*3/uL (4.50-10.00)
[2021-11-05] MEDS: ACETAMINOPHEN TAB 325 MG TAB PO PRN (09:35)
[2021-11-05] MEDS: SODIUM CHLORIDE 0.9% 1,000 ML IV SCH (11:05)
[2021-11-05] MEDS: ALPRAZolam 1 MG TAB PO PRN ×2 (11:07→23:51)
[2021-11-05 12:02] LABS: African American GFR (CKD) 102.8 (60.0-200.0); Anion Gap 6.3 mmol/L (10.00-18.00); BUN/Creat Ratio 14.7 Ratio (12.00-20.00); Blood Urea Nitrogen 6.8 mg/dL (9.0-27.0); Calcium 8.3 mg/dL (8.7-10.3); Carbon Dioxide 24.1 mmol/L (20.0-27.5); Non-African American GFR(CKD) 88.7 (60.0-200.0); Potassium 4.1 mmol/L (3.5-5.5)
--- NOTE | 2021-11-05 13:25 | US ---
EXAMINATION TYPE: US venous doppler duplex LE DATE OF EXAM: 11/05/2021 11:50 AM COMPARISON: NONE CLINICAL HISTORY: rule out dvt. SIDE PERFORMED: Bilateral TECHNIQUE: The lower extremity deep venous system is examined utilizing real time linear array sonog javed with graded compression, doppler sonography and color-flow sonography. VESSELS IMAGED: Common Femoral Vein Deep Femoral Vein Greater Saphenous Vein * Femoral Vein Popliteal Vein Small Saphenous Vein * Proximal Calf Veins (* superficial vessels) Right Leg: Negative for DVT Left Leg: Negative for DVT Technically difficult due to patient position and inability to move. IMPRESSION: 1. Bilateral lower extremity ultrasound negative for deep venous thrombosis. There may be some techni abhi limitations on this exam.
[2021-11-05] MEDS ORDERED: MELATONIN 3 MG TABLET PO PRN (13:28)
--- NOTE | 2021-11-05 13:34 | P.PN ---
Subjective Progress Note Date: 11/05/21 Follow-up for hyponatremia. Objective - Vital Signs Vital signs: Vital Signs Temp 98.2 F 11/05/21 07:48 Pulse 81 11/05/21 07:48 Resp 18 11/05/21 07:48 BP 133/73 11/05/21 07:48 Pulse Ox 95 11/05/21 07:48 FiO2 Intake & Output 11/04/21 11/05/21 11/05/21 18:59 06:59 18:59 Intake Total 925 Output Total 1300 Balance 925 -1300 Weight 67.3 kg Intake: Intake, IV Titration 925 Amount Sodium Chloride 0.9% 1, 925 000 ml @ 75 mls/hr IV . [id number] [facility] Rx#:[id number] Output: Urine 1300 Other: Voiding Method External Catheter External Catheter External Catheter - Exam No acute distress S1-S2 heard Lungs clear No edema - Labs CBC & Chem 7: 11/05/21 06:06 11/05/21 06:06 Labs: Abnormal Lab Results - Last 24 Hours (Table) 11/04/21 11/05/21 11/05/21 Range/Units 15:55 06:06 06:06 RBC 3.68 L (4.10-5.20) X 10*6/uL Hgb 10.2 L (12.0-15.0) g/dL Hct 33.4 L (37.2-46.3) % MCHC 30.5 L (32.0-37.0) g/dL Sodium 132 L (135-145) mmol/L Anion Gap 6.30 L (10.00-18.00) mmol/L BUN 6.8 L (9.0-27.0) mg/dL Creatinine 0.5 L (0.6-1.5) mg/dL POC Glucose (mg/dL) 133 H (70-110) mg/dL Calcium 8.3 L (8.7-10.3) mg/dL Assessment and Plan Assessment: #1 hypornatremia suspect hypovolemia. #2 hypotension on admission. #3 normal renal function Plan: #1 continue with IV fluids. Sodium improving. #2 check labs in the morning # 3 avoid nephrotoxic agents. Continue with losartan for blood pressure.
--- NOTE | 2021-11-05 19:28 | P.PN ---
Subjective This is a pleasant 89 years old female with past medical history of hypertension, hypothyroidism, GERD, osteoarthritis, pulmonary embolism NOT on an ticoagulation, hearing difficulty. Patient presents because she was blurred vision yesterday, also shows some questionable dizziness and borderline blood pressure. She wants to see her PCP Dr. Dey to increase her level Lasix 20 mg up to 40 mg also she is on hydrochlorothiazide 12.5 mg. She denies chest pain or dyspnea or coughing. No diarrhea or vomiting. She is being allowed after started the Lasix but no dysuria. No headache or weakness or numbness No smoking, alcohol or illicit tracts Vitas looks stable, patient is afebrile. Blood pressure on admission 102/73, currently 125/67. Labs reviewed, CBC is unremarkable. D-dimer is 1.5. Sodium is 121, potassium 2.8, creatinine 0.8 and BUN is 29. Glucose 127. Liver enzymes not elevated. Troponin is negative CT of the chest: Negative for pulmonary embolism. No acute process in the lungs. Atelectasis. Chest x-ray: No acute process. EKG: Normal sinus rhythm at [address]-T changes. 11/04/2021 Patient awake and alert more comfortable, no more episodes of blurred vision or dizziness. Her sodium improved at 131. Continue with normal saline at 75 mL per hour At losartan for her blood pressure control which is part of her home medication. 11/05/2021 Patient clinically improving with no more episodes of blurred vision or dizziness. She has minimal bilateral leg swelling but Doppler was negative for DVT. Sodium today is 132 and she kept on normal saline 75 mL/h also per recommendation of neurosurgical physician assistant. Blood pressure is better control, continue with current dose of losartan Patient request DO NOT RESUSCITATE order. Bedside nurse. 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 Patient has capacity to make medical decision per my evaluation Objective - Vital Signs Vital signs: Vital Signs Temp 98.2 F 11/05/21 07:48 Pulse 81 11/05/21 07:48 Resp 18 11/05/21 07:48 BP 133/73 11/05/21 07:48 Pulse Ox 95 11/05/21 07:48 FiO2 Intake & Output 11/04/21 11/05/21 11/05/21 18:59 06:59 18:59 Intake Total 925 Output Total 1300 Balance 925 -1300 Weight 67.3 kg Intake: Intake, IV Titration 925 Amount Sodium Chloride 0.9% 1, 925 000 ml @ 75 mls/hr IV . [id number] [facility] Rx#:[id number] Output: Urine 1300 Other: Voiding Method External Catheter External Catheter External Catheter - Exam GENERAL: The patient is alert and oriented x3, not in any acute distress. Well developed, well nourished. HEENT: Pupils are round and equally reacting to light. EOMI. No scleral icterus. No conjunctival pallor. Normocephalic, atraumatic. No pharyngeal erythema. No thyromegaly. CARDIOVASCULAR: S1 and S2 present. No murmurs, rubs, or gallops. PULMONARY: Chest is clear to auscultation, no wheezing or crackles. ABDOMEN: Soft, nontender, nondistended, normoactive bowel sounds. No palpable organomegaly. MUSCULOSKELETAL: No joint swelling or deformity. EXTREMITIES: No cyanosis, clubbing, or pedal edema. NEUROLOGICAL: Gross neurological examination did not reveal any focal deficits. SKIN: No rashes. no petechiae. - Labs CBC & Chem 7: 11/05/21 06:06 11/05/21 06:06 Labs: Abnormal Lab Results - Last 24 Hours (Table) 11/04/21 11/05/21 11/05/21 Range/Units 15:55 06:06 06:06 RBC 3.68 L (4.10-5.20) X 10*6/uL Hgb 10.2 L (12.0-15.0) g/dL Hct 33.4 L (37.2-46.3) % MCHC 30.5 L (32.0-37.0) g/dL Sodium 132 L (135-145) mmol/L Anion Gap 6.30 L (10.00-18.00) mmol/L BUN 6.8 L (9.0-27.0) mg/dL Creatinine 0.5 L (0.6-1.5) mg/dL POC Glucose (mg/dL) 133 H (70-110) mg/dL Calcium 8.3 L (8.7-10.3) mg/dL Assessment and Plan Assessment: Hyponatremia, hypovolemic. Most likely secondary to diuretic use Hypokalemia, secondary to diuretics Hypertension, this time she has hypotension upon admission Hypothyroidism History of GERD History of posterior arthritis Chronic shoulder pain follow-up with orthopedic History of pulmonary embolism not on anticoagulation Hearing difficulty Plan: This is a pleasant 89 years old female who presents with hypertension and hyponatremia Hold hydrochlorothiazide and Lasix. Monitor sodium Nephrology consult Labs and medication were reviewed.. Continue same treatment. Continue with sym ptomatic treatment. Resume home medication. Monitor lytes and vitals. DVT and GI prophylaxis. Further recommendations depends on the clinical course of the patient DVT prophylaxis: Subcutaneous heparin GI Prophylaxis: Pepcid PT/OT: Pending
[2021-11-05] MEDS: FAMOTIDINE 20 MG TAB PO SCH (20:59)
[2021-11-06 02:48] VITALS: RESP 17; TEMP 98.2
[2021-11-06] MEDS: SODIUM CHLORIDE 0.9% 1,000 ML IV SCH (03:10)
[2021-11-06] MEDS: LEVOTHYROXINE 25 MCG TAB PO SCH (05:33)
[2021-11-06] MEDS: NON FORMULARY DRUG (Mirabegron [Myrbetriq] 25 MG Tab.Er.24h) PO SCH (07:30)
[2021-11-06] MEDS: FAMOTIDINE 20 MG TAB PO SCH (07:31)
[2021-11-06] MEDS: SODIUM BICARBONATE TAB 650 MG TAB PO SCH (07:31)
[2021-11-06] MEDS: POTASSIUM CHLORIDE ER 20 MEQ TAB.ER PO SCH (07:32)
[2021-11-06] MEDS: HEPARIN SODIUM,PORCINE/PF 5,000 UNIT/0.5 ML SYRINGE SQ SCH (07:32)
[2021-11-06] MEDS: PANTOPRAZOLE 40 MG TABLET PO SCH (07:32)
[2021-11-06] MEDS: ACETAMINOPHEN TAB 325 MG TAB PO PRN (07:50)
[2021-11-06 08:49] VITALS: BP 144/68; PULSE 80
[2021-11-06] MEDS ORDERED: LOSARTAN 25 MG TAB PO SCH (09:00)
--- NOTE | 2021-11-06 10:40 | P.PN ---
Subjective Patient is seen in follow-up for hyponatremia. Sodium level 132 yesterday. Oral intake is good. No vomiting or diarrhea. Wants to go home. Vital signs are stable. General: Awake. No acute distress. HEENT: Head exam is unremarkable. LUNGS: Breath sounds decreased. HEART: Rate and Rhythm are regular. ABDOMEN: Soft, no distention. EXTREMITITES: No edema. Objective - Vital Signs Vital signs: Vital Signs Temp 98.2 F 11/06/21 08:00 Pulse 80 11/06/21 08:00 Resp 17 11/06/21 08:00 BP 144/68 11/06/21 08:00 Pulse Ox 97 11/06/21 08:00 FiO2 Intake & Output 11/05/21 11/06/21 11/06/21 18:59 06:59 18:59 Output Total 550 1050 Balance -550 -1050 Output: Urine 550 1050 Other: Voiding Method External Catheter External Catheter External Catheter # Voids 2 - Labs CBC & Chem 7: 11/05/21 06:06 11/05/21 06:06 Labs: Abnormal Lab Results - Last 24 Hours (Table) 11/05/21 Range/Units 06:06 Sodium 132 L (135-145) mmol/L Anion Gap 6.30 L (10.00-18.00) mmol/L BUN 6.8 L (9.0-27.0) mg/dL Creatinine 0.5 L (0.6-1.5) mg/dL Calcium 8.3 L (8.7-10.3) mg/dL Assessment and Plan Plan: Assessment: 1. Hypovolemic hyponatremia improved with IV hydration. Further worsened with the use of thiazide diuretic. Urine sodium 59 and urine osmolality 238. 2. Benign hypertension. Stable. Plan: Hep-Lock IV fluids. Continue to hold diuretics. Check TSH. Repeat BMP and magnesium level 2-3 days postdischarge. Follow-up outpatient in 1 week.
[2021-11-06 11:10] LABS: African American GFR (CKD) 100.2 (60.0-200.0); Anion Gap 4.9 mmol/L (10.00-18.00); BUN/Creat Ratio 13.2 Ratio (12.00-20.00); Blood Urea Nitrogen 6.6 mg/dL (9.0-27.0); Calcium 8.3 mg/dL (8.7-10.3); Carbon Dioxide 23.1 mmol/L (20.0-27.5); Non-African American GFR(CKD) 86.4 (60.0-200.0); Potassium 4.1 mmol/L (3.5-5.5)
== END 2021-11-06 12:58 | disposition home health service (06) | DRG 641 ==
LOC: EC 18:06 → 3SCARD 21:12 → 4SSUR 11-03 23:50
PROVIDERS: ADMIT Internal Medicine; ATTEND Internal Medicine
DX: E87.1 Hypo-osmolality and hyponatremia (principal); J98.11 Atelectasis; E87.0 Hyperosmolality and hypernatremia; E87.6 Hypokalemia; G89.29 Other chronic pain; Z66 Do not resuscitate; I10 Essential (primary) hypertension; T50.2X5A Adverse effect of carbonic-anhydrase inhibitors, benzothiadiazides and other diuretics, initial encounter; E03.9 Hypothyroidism, unspecified; M19.90 Unspecified osteoarthritis, unspecified site; I95.9 Hypotension, unspecified; E86.0 Dehydration; E86.1 Hypovolemia; H91.91 Unspecified hearing loss, right ear; Z79.890 Hormone replacement therapy; Z90.49 Acquired absence of other specified parts of digestive tract; Z79.899 Other long term (current) drug therapy; Z80.1 Family history of malignant neoplasm of trachea, bronchus and lung; Z82.49 Family history of ischemic heart disease and other diseases of the circulatory system; Z83.3 Family history of diabetes mellitus; Z86.711 Personal history of pulmonary embolism; Z90.710 Acquired absence of both cervix and uterus; Z96.651 Presence of right artificial knee joint; Z97.4 Presence of external hearing-aid; Z88.1 Allergy status to other antibiotic agents; Z98.42 Cataract extraction status, left eye; Z98.41 Cataract extraction status, right eye; Z88.2 Allergy status to sulfonamides; Z88.0 Allergy status to penicillin; Z88.8 Allergy status to other drugs, medicaments and biological substances; Z88.5 Allergy status to narcotic agent; X58.XXXA Exposure to other specified factors, initial encounter
CPT/HCPCS: 36415; 71046; 71275; 80048; 80053; 82550; 83605; 83735; 83935; 84295; 84300; 84439; 84443; 84484; 85025; 85379; 87086; 93005; 93970; 96360; 96361; 99285

== ENCOUNTER 2021-11-19 23:07 | Inpatient (IN) | payer MEDICARE, BC ==
--- NOTE | 2021-11-20 00:10 | ED ---
Fall HPI - General Chief Complaint: Fall Stated Complaint: Fall Time Seen by Provider: 11/19/21 23:16 Source: patient, EMS Mode of arrival: EMS - History of Present Illness Initial Comments: 's patient is an 89-year-old woman who presents to be evaluated after she had a fall at home. The patient's reports she had been feeling dizzy for most of the day since she had a bowel movement earlier. The patient thought she might have been dehydrated. She states that she was in her kitchen and she went to turn on her preboarder, lost her balance and fell striking the right side of her head. Family called EMS who brought the patient here for evaluation. MD Complaint: fall -: minutes(s) Fall From: standing When Fall Occurred: just prior to arrival Fall Witnessed: yes, by family Place Fall Occurred: home Loss of Consciousness: none Prolonged Down Time?: no Symptoms Prior to Fall: dizziness Location: head Severity: mild Context: tripped/slipped, history of frequent falls - Related Data Home Medications Medication Instructions Recorded Confirmed ALPRAZolam 1 mg PO BID PRN 12/07/14 11/20/21 Levothyroxine Sodium [Synthroid] 25 mcg PO DAILY 05/13/18 11/20/21 Omeprazole Magnesium [PriLOSEC OTC] 20 mg PO DAILY 08/28/19 11/20/21 Mirabegron [Myrbetriq] 25 mg PO DAILY 11/02/21 11/20/21 Sodium Bicarbonate 325 mg PO DAILY 11/02/21 11/20/21 Previous Rx's Medication Instructions Recorded Losartan [Cozaar] 25 mg PO DAILY #30 tab 11/06/21 Melatonin 3 mg PO HS PRN #10 tab 11/06/21 Allergies Allergy/AdvReac Type Severity Reaction Status Date / Time ciprofloxacin [From Cipro] Allergy Rash/Hives/ Verified 11/20/21 07:24 Nausea ciprofloxacin HCl Allergy Rash/Hives/ Verified 11/20/21 07:24 [From Cipro] Nausea doxycycline Allergy Rash/Hives Verified 11/20/21 07:24 esomeprazole magnesium Allergy Rash/Hives Verified 11/20/21 07:24 [From Vimovo] fesoterodine [From Toviaz] Allergy Unknown Verified 11/20/21 07:24 fluconazole Allergy Rash/Hives Verified 11/20/21 07:24 hydrocodone bitartrate Allergy Hallucinati Verified 11/20/21 07:24 [From Vicodin] ons naproxen [From Vimovo] Allergy Rash/Hives Verified 11/20/21 07:24 penicillin G Allergy Rash/Hives Verified 11/20/21 07:24 sulfamethoxazole Allergy Rash/Hives Verified 11/20/21 07:24 [From Bactrim] tramadol Allergy Unknown Verified 11/20/21 07:24 trimethoprim [From Bactrim] Allergy Rash/Hives Verified 11/20/21 07:24 hydrocodone [From [place]] AdvReac HEADACHE Verified 11/20/21 07:24 levofloxacin [From Levaquin] AdvReac Itching Verified 11/20/21 07:24 mirabegron [From Myrbetriq] AdvReac HEADACHE/BLURRED Verified 11/20/21 07:24 VISION oxybutynin AdvReac BLURRED Verified 11/20/21 07:24 VISION phenazopyridine AdvReac Itching Verified 11/20/21 07:24 Review of Systems ROS Statement: Those systems with pertinent positive or pertinent negative responses have been documented in the HPI. ROS Other: All systems not noted in ROS Statement are negative. Constitutional: Denies: fever Respiratory: Denies: cough, dyspnea Cardiovascular: Denies: chest pain, palpitations, syncope Gastrointestinal: Denies: abdominal pain, vomiting, diarrhea Genitourinary: Denies: dysuria, hematuria Musculoskeletal: Denies: back pain Neurological: Reports: headache. Denies: weakness, numbness Hematological/Lymphatic: Denies: easy bleeding Past Medical History Past Medical History: GERD/Reflux, Hearing Disorder / Deafness, Hypertension, Osteoarthritis (OA), Pulmonary Embolus (PE), Thyroid Disorder Additional Past Medical History / Comment(s): 12-07-14 admitted to [facility] with c/o chest pain. other hx:hiatal hernia, PE AFTER KNEE SX, INCONT OF URINE, DEAF RT EAR [facility] LT WEARS HEARING AID,UPPER DENTURE AND WEARS GLASSES TO READ. History of Any Multi-Drug Resistant Organisms: None Reported Past Surgical History: Cholecystectomy, Heart Catheterization, Hysterectomy, Joint Replacement, Tonsillectomy Additional Past Surgical History / Comment(s): cochlear implant, acoustic tumor removed rt ear 2010, egd/colonoscopy, rt carpal tunnel, rt knee replacement, SHAMEKA CATARACTS Past Anesthesia/Blood Transfusion Reactions: No Reported Reaction Past Psychological History: Anxiety, Depression Smoking Status: Never smoker - Past Family History Father Family Medical History: Dementia Mother Family Medical History: Cancer, Hypertension Additional Family Medical History / Comment(s): from lung cancer Brother(s) Family Medical History: Diabetes Mellitus Sister(s) Family Medical History: Cancer Additional Family Medical History / Comment(s): BRAIN Son(s) Family Medical History: Coronary Artery Disease (CAD) General Exam Limitations: physical limitation Course Vital Signs 11/19/21 11/20/21 11/20/21 23:14 02:20 03:00 Temperature 98 F Pulse Rate 77 80 82 Respiratory 22 22 20 Rate Blood Pressure 157/71 150/70 148/78 O2 Sat by Pulse 98 97 96 Oximetry 11/20/21 11/20/21 04:00 06:00 Temperature Pulse Rate 75 79 Respiratory 20 22 Rate Blood Pressure 144/78 142/76 O2 Sat by Pulse 97 97 Oximetry Procedures - Laceration Laceration #1 Consent Obtained: verbal consent Indication: laceration Site: scalp Size (cm): 6 Description: linear Depth: involves muscle layer Anesthetic Used: lidocaine 1% Anesthesia Technique: local infiltration Type of Sutures: vicryl, other Size of Sutures: 4-0 Technique: simple, interrupted Patient Tolerated Procedure: well, no complications Additional Comments: Patient has a little curvilinear laceration to the right parietal area. I did place 2 Vicryl sutures to reapproximate the flap and then it was closed with kori. Medical Decision Making - Lab Data Result diagrams: 11/19/21 23:59 11/20/21 02:17 Lab Results 11/19/21 11/19/21 11/20/21 Range/Units 23:59 23:59 02:17 WBC 13.7 H (3.8-10.6) k/uL RBC 4.41 (3.80-5.40) m/uL Hgb 12.1 (11.4-16.0) gm/dL Hct 38.0 (34.0-46.0) % MCV 86.1 (80.0-100.0) fL MCH 27.4 (25.0-35.0) pg MCHC 31.8 (31.0-37.0) g/dL RDW 12.8 (11.5-15.5) % Plt Count 401 (150-450) k/uL MPV 8.7 Neutrophils % 85 % Lymphocytes % 9 % Monocytes % 4 % Eosinophils % 1 % Basophils % 1 % Neutrophils # 11.6 H (1.3-7.7) k/uL Lymphocytes # 1.2 (1.0-4.8) k/uL Monocytes # 0.5 (0-1.0) k/uL Eosinophils # 0.1 (0-0.7) k/uL Basophils # 0.1 (0-0.2) k/uL Sodium (137-145) mmol/L Potassium (3.5-5.1) mmol/L Chloride (98-107) mmol/L Carbon Dioxide (22-30) mmol/L Anion Gap mmol/L BUN (7-17) mg/dL Creatinine (0.52-1.04) mg/dL Est GFR (CKD-EPI)AfAm (>60 ml/min/1.73 sqM) Est GFR (CKD-EPI)NonAf (>60 ml/min/1.73 sqM) Glucose (74-99) mg/dL Plasma Lactic Acid Saeid 1.5 (0.7-2.0) mmol/L Calcium (8.4-10.2) mg/dL Total Bilirubin (0.2-1.3) mg/dL AST (14-36) U/L ALT (4-34) U/L Alkaline Phosphatase (38-126) U/L Troponin I <0.012 (0.000-0.034) ng/mL Total Protein (6.3-8.2) g/dL Albumin (3.5-5.0) g/dL 11/20/21 Range/Units 02:17 WBC (3.8-10.6) k/uL RBC (3.80-5.40) m/uL Hgb (11.4-16.0) gm/dL Hct (34.0-46.0) % MCV (80.0-100.0) fL MCH (25.0-35.0) pg MCHC (31.0-37.0) g/dL RDW (11.5-15.5) % Plt Count (150-450) k/uL MPV Neutrophils % % Lymphocytes % % Monocytes % % Eosinophils % % Basophils % % Neutrophils # (1.3-7.7) k/uL Lymphocytes # (1.0-4.8) k/uL Monocytes # (0-1.0) k/uL Eosinophils # (0-0.7) k/uL Basophils # (0-0.2) k/uL Sodium 116 L* (137-145) mmol/L Potassium 2.9 L (3.5-5.1) mmol/L Chloride 79 L (98-107) mmol/L Carbon Dioxide 26 (22-30) mmol/L Anion Gap 11 mmol/L BUN 14 (7-17) mg/dL Creatinine 0.39 L (0.52-1.04) mg/dL Est GFR (CKD-EPI)AfAm >90 (>60 ml/min/1.73 sqM) Est GFR (CKD-EPI)NonAf >90 (>60 ml/min/1.73 sqM) Glucose 140 H (74-99) mg/dL Plasma Lactic Acid Saeid (0.7-2.0) mmol/L Calcium 8.9 (8.4-10.2) mg/dL Total Bilirubin 0.6 (0.2-1.3) mg/dL AST 28 (14-36) U/L ALT 18 (4-34) U/L Alkaline Phosphatase 68 (38-126) U/L Troponin I (0.000-0.034) ng/mL Total Protein 5.9 L (6.3-8.2) g/dL Albumin 3.7 (3.5-5.0) g/dL - EKG Data -: EKG Interpreted by Mt EKG shows normal: sinus rhythm (With supraventricular complexes), axis (Normal), intervals (Normal), QRS complexes (Normal), ST-T waves (Normal) Rate: normal (Rate 80 bpm) Disposition Clinical Impression: Fall, Weakness, Hyponatremia, Scalp laceration Disposition: ADMITTED IP TO THIS [facility] Condition: Good Is patient prescribed a controlled substance at d/c from ED?: No
[2021-11-20] MEDS ORDERED: DIPH,PERTUS(ACELL)TETVAC-LF 0.5 ML VIAL IM ONE (00:25)
[2021-11-20 00:31] LABS: Basophils # (A) 0.1 k/uL (0-0.2); Basophils % (A) 1 %; Eosinophils # (A) 0.1 k/uL (0-0.7); Eosinophils % (A) 1 %; HGB 12.1 gm/dL (11.4-16.0); Lymphocytes # (A) 1.2 k/uL (1.0-4.8); Lymphocytes % (A) 9 %; MCH 27.4 pg (25.0-35.0); MCHC 31.8 g/dL (31.0-37.0); MCV 86.1 fL (80.0-100.0); Mean Platelet Volume 8.7; Monocytes # (A) 0.5 k/uL (0-1.0); Monocytes % (A) 4 %; Neutrophils # (A) 11.6 k/uL (1.3-7.7); Neutrophils % (A) 85 %; Platelet Count 401 k/uL (150-450); RBC 4.41 m/uL (3.80-5.40); RDW 12.8 % (11.5-15.5); WBC 13.7 k/uL (3.8-10.6)
--- NOTE | 2021-11-20 00:37 | CT ---
EXAMINATION TYPE: CT brain agathaine wo con DATE OF EXAM: 11/20/2021 COMPARISON: 07/18/2018 HISTORY: DIZZY & FALL TONIGHT. CT DLP: 1332.9 mGycm Automated exposure control for dose reduction was used. There is metal artifact from implanted device over the left temporal bone. There is no mass effect or midline shift. No sign of intracranial hemorrhage. There is previous surgery on the left and right m astoid sinus. Ventricles have fairly normal size. There is some cerebral cortical atrophy. The cervical vertebra have normal alignment. There is mild spurring at C5-6. No compression fracture. There is mild cervical hypertrophic facet arthropathy. IMPRESSION: Previous cranial surgery. No acute intracranial abnormality. No change compared to the old exam. Mild degenerative disc changes at C5-6. No fracture. No change compared to old exam
[2021-11-20] MEDS ORDERED: LIDOCAINE 1% INJ 10MG/ML (5 ML VIAL-PF) SQ STA (02:27)
[2021-11-20] MEDS ORDERED: IBUPROFEN 400 MG TAB PO STA (02:47)
[2021-11-20 02:56] LABS: ALT 18 U/L (4-34); AST 28 U/L (14-36); African American GFR (CKD) >90 (>60 ml/min/1.73 sqM); Albumin 3.7 g/dL (3.5-5.0); Alkaline Phosphatase 68 U/L (38-126); Anion Gap 11 mmol/L; Blood Urea Nitrogen 14 mg/dL (7-17); Calcium 8.9 mg/dL (8.4-10.2); Carbon Dioxide 26 mmol/L (22-30); Chloride 79 mmol/L (98-107); Glucose 140 mg/dL (74-99); Non-African American GFR(CKD) >90 (>60 ml/min/1.73 sqM); Potassium 2.9 mmol/L (3.5-5.1); Total Bilirubin 0.6 mg/dL (0.2-1.3); Total Protein 5.9 g/dL (6.3-8.2)
[2021-11-20 02:59] LABS: Sodium 116 mmol/L (137-145)
[2021-11-20] MEDS ORDERED: NALOXONE 0.4 MG/ML 1 ML VIAL IV PRN (03:27)
[2021-11-20] MEDS: SODIUM CHLORIDE 0.9% 1,000 ML IV SCH ×2 (03:44→15:58)
[2021-11-20] MEDS ORDERED: ALPRAZolam 0.25 MG TAB PO STA (05:56)
[2021-11-20] MEDS ORDERED: ALPRAZolam 1 MG TAB PO STA (05:58)
[2021-11-20] MEDS ORDERED: HYDROcodone/APAP 5-325MG 1 EACH TAB PO STA (08:46)
[2021-11-20] MEDS ORDERED: FAMOTIDINE 20 MG/2 ML VIAL IV SCH (09:00)
--- NOTE | 2021-11-20 09:23 | P.HPIM ---
History of Present Illness This is a pleasant 89 years old female with past medical history of hypertension, hypothyroidism, GERD, osteoarthritis, hearing difficulty, pulmonary embolism not on anticoagulation. Anxiety and depression Patient awake and oriented and she knows she is in the hospital. She is moaning in pain because of her headache and low back pain. Patient states that she fell at home she has been feeling dizzy for the last 2-3 days, she described it as nonspecific dizziness, she said she vomited prior to hospitalization and 1 more time after hospitalization but denies abdominal pain also she said that usually she is constipated but she's been having chronic diarrhea she thinks is been going on for about one day. However she denies a bdominal pain or tenderness on examination her. No chest pain or dyspnea. She denies syncope. She denies urinary complaints. No rash. No neck pain or arm weakness or numbness. She's kind of poor historian because of her hearing difficulty and she is in pain and most of the time she does not want to elaborate. She denies smoking, alcohol or illicit drugs. She has one the top of her head with closed with sutures in a Place Vitas looks stable and patient is afebrile Labs showed leukocytosis with WBC count of 13.7. Rest of CBC is unremarkable. Sodium 116, potassium 2.9. Rest of BMP is unremarkable. Lactic acid 1.5. Liver enzymes not elevated. EKG showing normal sinus rhythm at [address]-T changes CT of the head and neck: No acute process intracranially, mild degenerative disc changes at C5-6. No fracture. No change compared to old exam In the emergency room patient received Xanax, ibuprofen and started on normal saline at 75 mL/h MAPS was checked and she is on Xanax 1 mg 60 tablets over 30 days Review of Systems Review of systems CONSTITUTIONAL: No fever, no malaise, no fatigue. HEENT: No recent visual problems or hearing problems. Denied any sore throat. CARDIOVASCULAR: No orthopnea, PND, no palpitations, no syncope. PULMONARY: No shortness of breath, no cough, no hemoptysis. -GASTROINTESTINAL: As above. Normoactive bowel sounds. NEUROLOGICAL: No headaches, no weakness, no numbness. HEMATOLOGICAL: Denies any bleeding or petechiae. GENITOURINARY: Denies any burning micturition, frequency, or urgency. MUSCULOSKELETAL/RHEUMATOLOGICAL: Denies any joint pain, swelling, or any muscle pain. ENDOCRINE: Denies any polyuria or polydipsia. Past Medical History Past Medical History: GERD/Reflux, Hearing Disorder / Deafness, Hypertension, Osteoarthritis (OA), Pulmonary Embolus (PE), Thyroid Disorder Additional Past Medical History / Comment(s): 12-07-14 admitted to [facility] with c/o chest pain. other hx:hiatal hernia, PE AFTER KNEE SX, INCONT OF URINE, DEAF RT EAR [facility] LT WEARS HEARING AID,UPPER DENTURE AND WEARS GLASSES TO READ. History of Any Multi-Drug Resistant Organisms: None Reported Past Surgical History: Cholecystectomy, Heart Catheterization, Hysterectomy, Joint Replacement, Tonsillectomy Additional Past Surgical History / Comment(s): cochlear implant, acoustic tumor removed rt ear 2010, egd/colonoscopy, rt carpal tunnel, rt knee replacement, SHAMEKA CATARACTS Past Anesthesia/Blood Transfusion Reactions: No Reported Reaction Past Psychological History: Anxiety, Depression Smoking Status: Never smoker - Past Family History Father Family Medical History: Dementia Mother Family Medical History: Cancer, Hypertension Additional Family Medical History / Comment(s): from lung cancer Brother(s) Family Medical History: Diabetes Mellitus Sister(s) Family Medical History: Cancer Additional Family Medical History / Comment(s): BRAIN Son(s) Family Medical History: Coronary Artery Disease (CAD) Medications and Allergies Home Medications Medication Instructions Recorded Confirmed Type RX: ALPRAZolam 1 mg PO BID PRN 12/07/14 11/20/21 History RX: Levothyroxine Sodium 25 mcg PO DAILY 05/13/18 11/20/21 History [Synthroid] RX: Omeprazole Magnesium [PriLOSEC 20 mg PO DAILY 08/28/19 11/20/21 History OTC] RX: Mirabegron [Myrbetriq] 25 mg PO DAILY 11/02/21 11/20/21 History RX: Sodium Bicarbonate 325 mg PO DAILY 11/02/21 11/20/21 History RX: Losartan [Cozaar] 25 mg PO DAILY #30 tab 11/06/21 11/20/21 Rx RX: Melatonin 3 mg PO HS PRN #10 tab 11/06/21 11/20/21 Rx Allergies Allergy/AdvReac Type Severity Reaction Status Date / Time ciprofloxacin [From Cipro] Allergy Rash/Hives/ Verified 11/20/21 07:24 Nausea ciprofloxacin HCl Allergy Rash/Hives/ Verified 11/20/21 07:24 [From Cipro] Nausea doxycycline Allergy Rash/Hives Verified 11/20/21 07:24 esomeprazole magnesium Allergy Rash/Hives Verified 11/20/21 07:24 [From Vimovo] fesoterodine [From Toviaz] Allergy Unknown Verified 11/20/21 07:24 fluconazole Allergy Rash/Hives Verified 11/20/21 07:24 hydrocodone bitartrate Allergy Hallucinati Verified 11/20/21 07:24 [From Vicodin] ons naproxen [From Vimovo] Allergy Rash/Hives Verified 11/20/21 07:24 penicillin G Allergy Rash/Hives Verified 11/20/21 07:24 sulfamethoxazole Allergy Rash/Hives Verified 11/20/21 07:24 [From Bactrim] tramadol Allergy Unknown Verified 11/20/21 07:24 trimethoprim [From Bactrim] Allergy Rash/Hives Verified 11/20/21 07:24 hydrocodone [From [place]] AdvReac HEADACHE Verified 11/20/21 07:24 levofloxacin [From Levaquin] AdvReac Itching Verified 11/20/21 07:24 mirabegron [From Myrbetriq] AdvReac HEADACHE/BLURRED Verified 11/20/21 07:24 VISION oxybutynin AdvReac BLURRED Verified 11/20/21 07:24 VISION phenazopyridine AdvReac Itching Verified 11/20/21 07:24 Physical Exam Vitals: Vital Signs Temp Pulse Resp BP Pulse Ox 11/20/21 08:17 81 18 151/70 96 11/20/21 06:00 79 22 142/76 97 11/20/21 04:00 75 20 144/78 97 11/20/21 03:00 82 20 148/78 96 11/20/21 02:20 80 22 150/70 97 11/19/21 23:14 98 F 77 22 157/71 98 Intake and Output 11/19/21 11/20/21 11/20/21 22:59 06:59 14:59 Other: Weight 67.676 kg -GENERAL: The patient is alert and oriented x2-3, patient is in any acute distress due to pain. Well developed, well nourished. -HEENT: Pupils are round and equally reacting to light. EOMI. No scleral icterus. No conjunctival pallor. Normocephalic, atraumatic. No pharyngeal erythema. No thyromegaly. About 1-2 inches wound on the top of her head with suture in a Place and closed CARDIOVASCULAR: S1 and S2 present. No murmurs, rubs, or gallops. PULMONARY: Chest is clear to auscultation, no wheezing or crackles. ABDOMEN: Soft, nontender, nondistended, normoactive bowel sounds. No palpable organomegaly. MUSCULOSKELETAL: No joint swelling or deformity. EXTREMITIES: No cyanosis, clubbing, or pedal edema. NEUROLOGICAL: Gross neurological examination did not reveal any focal deficits. SKIN: No rashes. no petechiae. Results CBC & Chem 7: 11/19/21 23:59 11/20/21 02:17 Labs: Abnormal Lab Results - Last 24 Hours (Table) 11/19/21 11/20/21 Range/Units 23:59 02:17 WBC 13.7 H (3.8-10.6) k/uL Neutrophils # 11.6 H (1.3-7.7) k/uL Sodium 116 L* (137-145) mmol/L Potassium 2.9 L (3.5-5.1) mmol/L Chloride 79 L (98-107) mmol/L Creatinine 0.39 L (0.52-1.04) mg/dL Glucose 140 H (74-99) mg/dL Total Protein 5.9 L (6.3-8.2) g/dL Assessment and Plan Assessment: hyponatremia, possible hypovolemic Fall, associated with dizziness but without syncope, Secondary to above Scalp wound status post suture Hypertension Hypothyroidism History of hearing difficulty History of GERD History of osteoarthritis History of anxiety and depression, not an active issue line history of pulmonary embolism not on anticoagulation Plan: This is a pleasant 89 years old female who presents with a fall Continue with gentle hydration Monitor sodium closely Nephrology consult continue with the neuro check 24 hours Check urinalysis and bladder scan Pain management, she says she is ALLERGIC to [place] and the records but the reaction showing hallucination or headache which is most likely side effects, patient is willing to try the medication. Risks and benefits explained Check pelvic Continue her Xanax over lower the dose into 0.5 mg given her dizziness Labs and medication were reviewed.. Continue same treatment. Continue with symptomatic treatment. Resume home medication. Monitor lytes and vitals. DVT and GI prophylaxis. Further recommendations as per clinical course of the patient DVT prophylaxis: Subcutaneous heparin GI Prophylaxis: Pepcid PT/OT: Pending Prognosis is guarded Discussed with the bedside nurse in the emergency room
[2021-11-20 09:57] LABS: Potassium 3.2 mmol/L (3.5-5.1)
[2021-11-20] MEDS: LOSARTAN 25 MG TAB PO SCH (10:09)
[2021-11-20] MEDS: LEVOTHYROXINE 25 MCG TAB PO SCH (10:09)
[2021-11-20] MEDS: HEPARIN SODIUM,PORCINE/PF 5,000 UNIT/0.5 ML SYRINGE SQ SCH ×2 (10:09→20:08)
[2021-11-20 10:15] LABS: Amorphous Sediment,Urine Occasional /hpf; Appearance,Urine Cloudy (Clear); Bilirubin,Urine Negative (Negative); Blood,Urine Negative (Negative); Color,Urine Light Yellow; Glucose,Urine (UA) Negative (Negative); Ketones,Urine 2+ (Negative); Leukocyte Esterase,Urine Negative (Negative); Mucus,Urine Rare /hpf; Nitrite,Urine Negative (Negative); PH, Urine 7.5 (5.0-8.0); Protein,Urine Negative (Negative); RBC,Urine 1 /hpf (0-5); Specific Gravity,Urine 1.015 (1.001-1.035); Squamous Epithelial Cell,Urine <1 /hpf (0-4); Urobilinogen,Urine <2.0 mg/dL (<2.0); WBC,Urine 3 /hpf (0-5)
[2021-11-20] MEDS ORDERED: HYDROcodone/APAP 5-325MG 1 EACH TAB PO PRN (11:03)
[2021-11-20] MEDS ORDERED: POTASSIUM CHLORIDE ER 20 MEQ TAB.ER PO STA (11:14)
--- NOTE | 2021-11-20 12:29 | P.NPCON ---
History of Present Illness - Reason for Consult hyponatremia - History of Present Illness Patient is an 89-year-old female with history of hypertension, hypothyroidism, osteoarthritis and hearing loss. Patient also has a history of PE. She is admitted to the hospital with a history of fall. Patient states that she was trying to get her cracker dough mixer on and somehow turned and fell. She did report some dizziness. Serum sodium was 1 16 mg/L on admission. Currently maintained on normal saline and repeat sodium was 117. Patient denies any previous history of hyponatremia Patient did report episode of diarrhea proceeded with constipation recently. No new medications started recently No history of malignancy Review of Systems As per HPI Past Medical History Past Medical History: GERD/Reflux, Hearing Disorder / Deafness, Hypertension, Osteoarthritis (OA), Pulmonary Embolus (PE), Thyroid Disorder Additional Past Medical History / Comment(s): 12-07-14 admitted to [facility] with c/o chest pain. other hx:hiatal hernia, PE AFTER KNEE SX, INCONT OF URINE, DEAF RT EAR [place] LT WEARS HEARING AID,UPPER DENTURE AND WEARS GLASSES TO READ. History of Any Multi-Drug Resistant Organisms: None Reported Past Surgical History: Cholecystectomy, Heart Catheterization, Hysterectomy, Joint Replacement, Tonsillectomy Additional Past Surgical History / Comment(s): cochlear implant, acoustic tumor removed rt ear 2010, egd/colonoscopy, rt carpal tunnel, rt knee replacement, SHAMEKA CATARACTS Past Anesthesia/Blood Transfusion Reactions: No Reported Reaction Past Psychological History: Anxiety, Depression Smoking Status: Never smoker - Past Family History Father Family Medical History: Dementia Mother Family Medical History: Cancer, Hypertension Additional Family Medical History / Comment(s): from lung cancer Brother(s) Family Medical History: Diabetes Mellitus Sister(s) Family Medical History: Cancer Additional Family Medical History / Comment(s): BRAIN Son(s) Family Medical History: Coronary Artery Disease (CAD) Medications and Allergies Home Medications Medication Instructions Recorded Confirmed Type ALPRAZolam 1 mg PO BID PRN 12/07/14 11/20/21 History Levothyroxine Sodium [Synthroid] 25 mcg PO DAILY 05/13/18 11/20/21 History Omeprazole Magnesium [PriLOSEC OTC] 20 mg PO DAILY 08/28/19 11/20/21 History Mirabegron [Myrbetriq] 25 mg PO DAILY 11/02/21 11/20/21 History Sodium Bicarbonate 325 mg PO DAILY 11/02/21 11/20/21 History Losartan [Cozaar] 25 mg PO DAILY #30 tab 11/06/21 11/20/21 Rx Melatonin 3 mg PO HS PRN #10 tab 11/06/21 11/20/21 Rx Allergies Allergy/AdvReac Type Severity Reaction Status Date / Time ciprofloxacin [From Cipro] Allergy Rash/Hives/ Verified 11/20/21 07:24 Nausea ciprofloxacin HCl Allergy Rash/Hives/ Verified 11/20/21 07:24 [From Cipro] Nausea doxycycline Allergy Rash/Hives Verified 11/20/21 07:24 esomeprazole magnesium Allergy Rash/Hives Verified 11/20/21 07:24 [From Vimovo] fesoterodine [From Toviaz] Allergy Unknown Verified 11/20/21 07:24 fluconazole Allergy Rash/Hives Verified 11/20/21 07:24 hydrocodone bitartrate Allergy Hallucinati Verified 11/20/21 07:24 [From Vicodin] ons naproxen [From Vimovo] Allergy Rash/Hives Verified 11/20/21 07:24 penicillin G Allergy Rash/Hives Verified 11/20/21 07:24 sulfamethoxazole Allergy Rash/Hives Verified 11/20/21 07:24 [From Bactrim] tramadol Allergy Unknown Verified 11/20/21 07:24 trimethoprim [From Bactrim] Allergy Rash/Hives Verified 11/20/21 07:24 hydrocodone [From [place]] AdvReac HEADACHE Verified 11/20/21 07:24 levofloxacin [From Levaquin] AdvReac Itching Verified 11/20/21 07:24 mirabegron [From Myrbetriq] AdvReac HEADACHE/BLURRED Verified 11/20/21 07:24 VISION oxybutynin AdvReac BLURRED Verified 11/20/21 07:24 VISION phenazopyridine AdvReac Itching Verified 11/20/21 07:24 Physical Exam Vitals: Vital Signs Temp Pulse Resp BP Pulse Ox 11/20/21 11:25 77 14 130/73 97 11/20/21 08:17 81 18 151/70 96 11/20/21 06:00 79 22 142/76 97 11/20/21 04:00 75 20 144/78 97 08/15/22 03:00 82 20 148/78 96 11/20/21 02:20 80 22 150/70 97 11/19/21 23:14 98 F 77 22 157/71 98 Intake and Output 11/19/21 11/20/21 11/20/21 22:59 06:59 14:59 Other: Weight 67.676 kg Awake, comfortable, not in any acute distress Heart of hearing Examination of the heart S1 and S2 Examination lungs bilateral breath sounds are heard Abdomen is soft nontender Examination of the lower extremities shows no evidence of edema [employer] exam grossly intact Results - Lab Results Most recent lab results Calcium 8.9 mg/dL (8.4-10.2) 11/20/21 02:17 11/19/21 23:59 11/20/21 09:14 Assessment and Plan Assessment: 1. Hyponatremia, most likely hypovolemic, currently maintained on normal saline. Check urine osmolality and random urine sodium. Continue with saline for now 2. Hypokalemia associated with GI fluid loss and decreased oral intake, status post replacement 3. Hypothyroidism maintained on supplementation 4. Hypertension currently controlled Plan: Continue with saline Check random urine sodium and urine osmolality His repeat sodium in 4 hours Check TSH level Patient is encouraged to increase oral intake particularly protein
--- NOTE | 2021-11-20 13:28 | XR ---
EXAMINATION TYPE: XR lumbar spine 2 or 3V, XR Hip Bilateral and AP pelvis DATE OF EXAM: 11/20/2021 COMPARISON: X-ray dated 10/18/[address] dated 11/25/2019 INDICATION: Pain after fall TECHNIQUE: 3 views of the lumbar spine with AP view of the pelvis and 2 views of each hip. FINDINGS: Suspected previous laminectomy of the mid to lower lumbar spine with a metallic prosthesis at the int erspinous location from L3 down to L5. Grade 1 anterolisthesis of L4 over L5, likely degenerative. Mi nimal retrolisthesis of L2 over L3 and L3 over L4. No definite vertebral body collapse or acute displaced fracture. Markedly degenerated L3-4 and to a l constance extent L2-3 and L4-5 discs. Multilevel facet osteoarthropathy most evident at L5-S1 level. Chol ecystectomy clips. Arterial atherosclerotic calcifications. [id number] degenerative changes of the hip joints. No definite pelvic bone or hip fracture identified. Suspected right gluteal soft tissue calcifications. IMPRESSION: No obvious acute traumatic bony injury of the lumbar spine, pelvis or hip joints by this x-ray. Degen erative changes and other findings as described above. Further imaging can be considered if clinically required.
[2021-11-20] MEDS ORDERED: SODIUM CHLORIDE TAB 1 GM TAB PO STA (17:12)
[2021-11-20] MEDS: FAMOTIDINE 20 MG TAB PO SCH (20:09)
[2021-11-20] MEDS: MELATONIN 3 MG TABLET PO PRN (20:09)
[2021-11-20] MEDS: ACETAMINOPHEN TAB 325 MG TAB PO PRN (20:09)
[2021-11-20 22:07] LABS: Potassium 3.6 mmol/L (3.5-5.1)
[2021-11-21] MEDS: ACETAMINOPHEN TAB 325 MG TAB PO PRN ×3 (02:07→18:14)
[2021-11-21] MEDS: LEVOTHYROXINE 25 MCG TAB PO SCH (05:36)
[2021-11-21] MEDS: FAMOTIDINE 20 MG TAB PO SCH ×2 (09:14→21:38)
[2021-11-21] MEDS: LOSARTAN 25 MG TAB PO SCH (09:14)
[2021-11-21 09:15] LABS: Basophils # (A) 0.02 X 10*3/uL (0.00-0.10); Basophils % (A) 0.3 %; Eosinophils # (A) 0.03 X 10*3/uL (0.04-0.35); Eosinophils % (A) 0.4 %; HCT 33.3 % (37.2-46.3); HGB 11.3 g/dL (12.0-15.0); Immature Grans, Automated 0.4 %; Lymphocytes % (A) 11.7 %; MCH 28.4 pg (27.0-32.0); MCHC 33.9 g/dL (32.0-37.0); MCV 83.7 fL (80.0-97.0); Monocytes # (A) 0.61 X 10*3/uL (0.20-1.00); NRBC Per 100 WBC 0 /100 WBCS (0.0-0.0); Neutrophils # (A) 6.07 X 10*3/uL (1.80-7.70); Neutrophils % (A) 79.2 %; Platelet Count 357 X 10*3/uL (140-440); RBC 3.98 X 10*6/uL (4.10-5.20); RDW 12.8 % (11.5-14.5); WBC 7.66 X 10*3/uL (4.50-10.00)
[2021-11-21] MEDS: HEPARIN SODIUM,PORCINE/PF 5,000 UNIT/0.5 ML SYRINGE SQ SCH ×2 (09:15→21:37)
[2021-11-21 09:24] LABS: African American GFR (CKD) 109.3 (60.0-200.0); Anion Gap 10.9 mmol/L (10.00-18.00); BUN/Creat Ratio 13.34 Ratio (12.00-20.00); Blood Urea Nitrogen 5.1 mg/dL (9.0-27.0); Calcium 8.8 mg/dL (8.7-10.3); Carbon Dioxide 23.8 mmol/L (20.0-27.5); Non-African American GFR(CKD) 94.3 (60.0-200.0); Potassium 3.6 mmol/L (3.5-5.5)
[2021-11-21] MEDS ORDERED: DEXTROSE 5% IN WATER 1,000 ML IV ONE (09:43)
[2021-11-21] MEDS ORDERED: POTASSIUM CHLORIDE ER 20 MEQ TAB.ER PO STA (09:44)
--- NOTE | 2021-11-21 09:46 | P.PN ---
Subjective Patient is seen in follow-up for hyponatremia. Sodium level 127 this morning. She is off IV fluids. Did receive a dose of sodium chloride tablet last night. Oral intake is poor. Denies vomiting or diarrhea. Vital signs are stable. General: Awake. No acute distress. HEENT: Head exam is unremarkable. LUNGS: Breath sounds decreased. HEART: Rate and Rhythm are regular. ABDOMEN: Soft, no distention. EXTREMITITES: No edema. Objective - Vital Signs Vital signs: Vital Signs Temp 98.4 F 11/21/21 08:00 Pulse 100 11/21/21 08:00 Resp 18 11/21/21 08:00 BP 139/70 11/21/21 08:00 Pulse Ox 94 L 11/21/21 08:00 FiO2 Intake & Output 11/20/21 11/21/21 11/21/21 18:59 06:59 18:59 Intake Total 1080 Output Total 293 1675 Balance 787 -1675 Weight 67.676 kg Intake: Oral 1080 Output: Urine 150 1675 Post Void Residual 143 Other: Voiding Method External Catheter External Catheter - Labs CBC & Chem 7: 11/21/21 05:51 11/21/21 05:51 Labs: Abnormal Lab Results - Last 24 Hours (Table) 11/20/21 11/20/21 11/20/21 Range/Units 08:54 09:14 16:07 RBC (4.10-5.20) X 10*6/uL Hgb (12.0-15.0) g/dL Hct (37.2-46.3) % Eosinophils # (0.04-0.35) X 10*3/uL Sodium 117 L* 117 L* (137-145) mmol/L Potassium 3.2 L (3.5-5.1) mmol/L Chloride 81 L (98-107) mmol/L BUN (9.0-27.0) mg/dL Creatinine (0.6-1.5) mg/dL Urine Appearance Cloudy H (Clear) Urine Ketones 2+ H (Negative) Amorphous Sediment Occasional H (None) /hpf Urine Mucus Rare H (None) /hpf 11/20/21 11/21/21 11/21/21 Range/Units 21:29 05:51 05:51 RBC 3.98 L (4.10-5.20) X 10*6/uL Hgb 11.3 L (12.0-15.0) g/dL Hct 33.3 L (37.2-46.3) % Eosinophils # 0.03 L (0.04-0.35) X 10*3/uL Sodium 118 L* 127 L (137-145) mmol/L Potassium (3.5-5.1) mmol/L Chloride 85 L 92 L (98-107) mmol/L BUN 5.1 L (9.0-27.0) mg/dL Creatinine 0.4 L (0.6-1.5) mg/dL Urine Appearance (Clear) Urine Ketones (Negative) Amorphous Sediment (None) /hpf Urine Mucus (None) /hpf Assessment and Plan Plan: Assessment: 1. Hyponatremia from poor solute intake and component of SIADH. Urine osmolality 502. TSH normal. No improvement with normal saline. Did improve with sodium chloride tablet given last night. 2. Benign hypertension. Stable. 3. Hypokalemia from poor intake. Replaced. Plan: Start D5W at 60 mL an hour to slow correction of hyponatremia. Encouraged oral intake. Repeat sodium level this afternoon. Replace potassium.
[2021-11-21] MEDS: SODIUM CHLORIDE 0.9% 1,000 ML IV SCH (09:52)
--- NOTE | 2021-11-21 19:17 | P.PN ---
Subjective This is a pleasant 89 years old female with past medical history of hypertension, hypothyroidism, GERD, osteoarthritis, hearing difficulty, pulmona ry embolism not on anticoagulation. Anxiety and depression Patient awake and oriented and she knows she is in the hospital. She is moaning in pain because of her headache and low back pain. Patient states that she fell at home she has been feeling dizzy for the last 2-3 days, she described it as nonspecific dizziness, she said she vomited prior to hospitalization and 1 more time after hospitalization but denies abdominal pain also she said that usually she is constipated but she's been having chronic diarrhea she thinks is been going on for about one day. However she denies abdominal pain or tenderness on examination her. No chest pain or dyspnea. She denies syncope. She denies urinary complaints. No rash. No neck pain or arm weakness or numbness. She's kind of poor historian because of her hearing difficulty and she is in pain and most of the time she does not want to elaborate. She denies smoking, alcohol or illicit drugs. She has one the top of her head with closed with sutures in a Place Vitas looks stable and patient is afebrile Labs showed leukocytosis with WBC count of 13.7. Rest of CBC is unremarkable. Sodium 116, potassium 2.9. Rest of BMP is unremarkable. Lactic acid 1.5. Liver enzymes not elevated. EKG showing normal sinus rhythm at [address]-T changes CT of the head and neck: No acute process intracranially, mild degenerative disc changes at C5-6. No fracture. No change compared to old exam In the emergency room patient received Xanax, ibuprofen and started on normal saline at 75 mL/h MAPS was checked and she is on Xanax 1 mg 60 tablets over 30 days 11/21/2021 Patient awake and alert, she is more calm and her headache from yesterday has resolved however she still feels little dizzy. Surgical wound of the scalp looks clean and sutured in place. Back pain improved, diarrhea is easing down. Sodium today went up to 127 and then again 2022 which looks his stable now. Also patient received Lasix and D5W which is now stopped. We will keep monitoring sodium closely. The first team on the case Patient seems did not use [place] for the last 24 hours. Patient also on Xanax 0.5 mg twice daily when necessary but patient did not take it today Objective - Vital Signs Vital signs: Vital Signs Temp 98.4 F 11/21/21 08:00 Pulse 100 11/21/21 08:00 Resp 18 11/21/21 08:00 BP 139/70 11/21/21 08:00 Pulse Ox 94 L 11/21/21 08:00 FiO2 Intake & Output 11/20/21 11/21/21 11/21/21 18:59 06:59 18:59 Intake Total 1080 Output Total 293 1675 Balance 787 -1675 Weight 67.676 kg Intake: Oral 1080 Output: Urine 150 1675 Post Void Residual 143 Other: Voiding Method External Catheter External Catheter Diaper - Exam GENERAL: The patient is alert and oriented x3, not in any acute distress. Well developed, well nourished. HEENT: Pupils are round and equally reacting to light. EOMI. No scleral icterus. No conjunctival pallor. Normocephalic, atraumatic. No pharyngeal erythema. No thyromegaly. CARDIOVASCULAR: S1 and S2 present. No murmurs, rubs, or gallops. PULMONARY: Chest is clear to auscultation, no wheezing or crackles. ABDOMEN: Soft, nontender, nondistended, normoactive bowel sounds. No palpable organomegaly. MUSCULOSKELETAL: No joint swelling or deformity. EXTREMITIES: No cyanosis, clubbing, or pedal edema. NEUROLOGICAL: Gross neurological examination did not reveal any focal deficits. SKIN: No rashes. no petechiae. - Labs CBC & Chem 7: 11/21/21 05:51 11/21/21 12:32 Labs: Abnormal Lab Results - Last 24 Hours (Table) 11/20/21 11/20/21 11/21/21 Range/Units 16:07 21:29 05:51 RBC 3.98 L (4.10-5.20) X 10*6/uL Hgb 11.3 L (12.0-15.0) g/dL Hct 33.3 L (37.2-46.3) % Eosinophils # 0.03 L (0.04-0.35) X 10*3/uL Sodium 117 L* 118 L* (137-145) mmol/L Chloride 85 L (98-107) mmol/L BUN (9.0-27.0) mg/dL Creatinine (0.6-1.5) mg/dL 11/21/21 Range/Units 05:51 RBC (4.10-5.20) X 10*6/uL Hgb (12.0-15.0) g/dL Hct (37.2-46.3) % Eosinophils # (0.04-0.35) X 10*3/uL Sodium 127 L (137-145) mmol/L Chloride 92 L (98-107) mmol/L BUN 5.1 L (9.0-27.0) mg/dL Creatinine 0.4 L (0.6-1.5) mg/dL Assessment and Plan Assessment: hyponatremia, possible hypovolemic, improving slowly and gradually Fall, associated with dizziness but without syncope, Secondary to above Scalp wound status post suture Hypertension Hypothyroidism History of hearing difficulty History of GERD History of osteoarthritis History of anxiety and depression, not an active issue line history of pulmonary embolism not on anticoagulation Plan: This is a pleasant 89 years old female who presents with a fall Continue continue monitoring sodium closely with nephrology team on the case and follow-up the recommendation Check urinalysis and bladder scan Discontinue [place], continue with Tylenol when necessary Continue her Xanax over lower the dose into 0.5 mg given her dizziness Labs and medication were reviewed.. Continue same treatment. Continue with symptomatic treatment. Resume home medication. Monitor lytes and vitals. DVT and GI prophylaxis. Further recommendations as per clinical course of the patient DVT prophylaxis: Subcutaneous heparin GI Prophylaxis: Pepcid PT/OT: Pending Prognosis is guarded Discussed with the bedside nurse in the emergency room
[2021-11-21] MEDS: MELATONIN 3 MG TABLET PO PRN (22:55)
[2021-11-22] MEDS: ACETAMINOPHEN TAB 325 MG TAB PO PRN ×3 (00:30→19:46)
[2021-11-22] MEDS: ALPRAZolam 0.5 MG TAB PO PRN ×3 (00:43→23:50)
[2021-11-22] MEDS: LEVOTHYROXINE 25 MCG TAB PO SCH (05:34)
[2021-11-22 07:12] LABS: African American GFR (CKD) >90 (>60 ml/min/1.73 sqM); Anion Gap 6 mmol/L; Blood Urea Nitrogen 8 mg/dL (7-17); Calcium 8.7 mg/dL (8.4-10.2); Carbon Dioxide 24 mmol/L (22-30); Chloride 95 mmol/L (98-107); Glucose 113 mg/dL (74-99); Non-African American GFR(CKD) >90 (>60 ml/min/1.73 sqM); Potassium 3.8 mmol/L (3.5-5.1); Sodium 125 mmol/L (137-145)
[2021-11-22] MEDS: HEPARIN SODIUM,PORCINE/PF 5,000 UNIT/0.5 ML SYRINGE SQ SCH ×2 (08:52→19:47)
[2021-11-22] MEDS: LOSARTAN 25 MG TAB PO SCH (08:53)
[2021-11-22] MEDS: FAMOTIDINE 20 MG TAB PO SCH ×2 (08:53→19:47)
[2021-11-22] MEDS ORDERED: POTASSIUM CHLORIDE ER 20 MEQ TAB.ER PO STA (10:14)
--- NOTE | 2021-11-22 10:15 | P.PN ---
Subjective Patient is seen in follow-up for hyponatremia. Sodium level 125 this morning. She is off IV fluids. Oral intake remains poor. Denies vomiting or diarrhea. Hemodynamically stable. Vital signs are stable. General: Awake. No acute distress. HEENT: Head exam is unremarkable. LUNGS: Breath sounds decreased. HEART: Rate and Rhythm are regular. ABDOMEN: Soft, no distention. EXTREMITITES: No edema. Objective - Vital Signs Vital signs: Vital Signs Temp 97.8 F 11/22/21 08:00 Pulse 81 11/22/21 08:00 Resp 16 11/22/21 08:00 BP 134/76 11/22/21 08:00 Pulse Ox 97 11/22/21 08:00 FiO2 Intake & Output 11/21/21 11/22/21 11/22/21 18:59 06:59 18:59 Intake Total 960 Output Total 400 250 Balance 560 -250 Intake: Oral 960 Output: Urine 400 250 Other: Voiding Method Diaper External Catheter # Voids 2 # Bowel Movements 2 - Labs CBC & Chem 7: 11/21/21 05:51 11/22/21 06:03 Labs: Abnormal Lab Results - Last 24 Hours (Table) 11/21/21 11/22/21 Range/Units 12:32 06:03 Sodium 123 L 125 L (137-145) mmol/L Chloride 95 L (98-107) mmol/L Creatinine 0.41 L (0.52-1.04) mg/dL Glucose 113 H (74-99) mg/dL Assessment and Plan Plan: Assessment: 1. Hyponatremia from poor solute intake and component of SIADH. Urine osmolality 502. TSH normal. No improvement with normal saline. 2. Benign hypertension. Stable. 3. Hypokalemia from poor intake. Replaced. Better. Plan: Encouraged oral intake, particularly protein. Add sodium chloride tab once daily. Maintain fluid restriction. Repeat labs in the morning.
[2021-11-22] MEDS: SODIUM CHLORIDE TAB 1 GM TAB PO SCH (18:45)
--- NOTE | 2021-11-22 19:47 | P.PN ---
Subjective This is a pleasant 89 years old female with past medical history of hypertension, hypothyroidism, GERD, osteoarthritis, hearing difficulty, pulmona ry embolism not on anticoagulation. Anxiety and depression Patient awake and oriented and she knows she is in the hospital. She is moaning in pain because of her headache and low back pain. Patient states that she fell at home she has been feeling dizzy for the last 2-3 days, she described it as nonspecific dizziness, she said she vomited prior to hospitalization and 1 more time after hospitalization but denies abdominal pain also she said that usually she is constipated but she's been having chronic diarrhea she thinks is been going on for about one day. However she denies abdominal pain or tenderness on examination her. No chest pain or dyspnea. She denies syncope. She denies urinary complaints. No rash. No neck pain or arm weakness or numbness. She's kind of poor historian because of her hearing difficulty and she is in pain and most of the time she does not want to elaborate. She denies smoking, alcohol or illicit drugs. She has one the top of her head with closed with sutures in a Place Vitas looks stable and patient is afebrile Labs showed leukocytosis with WBC count of 13.7. Rest of CBC is unremarkable. Sodium 116, potassium 2.9. Rest of BMP is unremarkable. Lactic acid 1.5. Liver enzymes not elevated. EKG showing normal sinus rhythm at [address]-T changes CT of the head and neck: No acute process intracranially, mild degenerative disc changes at C5-6. No fracture. No change compared to old exam In the emergency room patient received Xanax, ibuprofen and started on normal saline at 75 mL/h MAPS was checked and she is on Xanax 1 mg 60 tablets over 30 days 11/21/2021 Patient awake and alert, she is more calm and her headache from yesterday has resolved however she still feels little dizzy. Surgical wound of the scalp looks clean and sutured in place. Back pain improved, diarrhea is easing down. Sodium today went up to 127 and then again 2022 which looks his stable now. Also patient received Lasix and D5W which is now stopped. We will keep monitoring sodium closely. The first team on the case Patient seems did not use [place] for the last 24 hours. Patient also on Xanax 0.5 mg twice daily when necessary but patient did not take it today 11/22/2021 Patient is clinically doing well, she denies chest pain or dyspnea, no leg cramps, no headache or dizziness. No diarrhea and she has regular bowel movements. She still have some pain at her wound in the scalp but looks healing and clean with no signs of infection. Sodium improved to 125 today. She received 1 tablet of normal saline. Discussed the case with biopsychologist will keep monitoring sodium tomorrow. Possible discharge in 24-48 hours if she keeps improvement Objective - Vital Signs Vital signs: Vital Signs Temp 97.8 F 11/22/21 08:00 Pulse 81 11/22/21 08:00 Resp 16 11/22/21 08:00 BP 134/76 11/22/21 08:00 Pulse Ox 97 11/22/21 08:00 FiO2 Intake & Output 11/21/21 11/22/21 11/22/21 18:59 06:59 18:59 Intake Total 960 Output Total 400 250 Balance 560 -250 Intake: Oral 960 Output: Urine 400 250 Other: Voiding Method Diaper External Catheter External Catheter # Voids 2 # Bowel Movements 2 - Exam GENERAL: The patient is alert and oriented x3, not in any acute distress. Well developed, well nourished. HEENT: Pupils are round and equally reacting to light. EOMI. No scleral icterus. No conjunctival pallor. Normocephalic, atraumatic. No pharyngeal erythema. No thyromegaly. CARDIOVASCULAR: S1 and S2 present. No murmurs, rubs, or gallops. PULMONARY: Chest is clear to auscultation, no wheezing or crackles. ABDOMEN: Soft, nontender, nondistended, normoactive bowel sounds. No palpable organomegaly. MUSCULOSKELETAL: No joint swelling or deformity. EXTREMITIES: No cyanosis, clubbing, or pedal edema. NEUROLOGICAL: Gross neurological examination did not reveal any focal deficits. SKIN: No rashes. no petechiae. - Labs CBC & Chem 7: 11/21/21 05:51 11/22/21 06:03 Labs: Abnormal Lab Results - Last 24 Hours (Table) 11/21/21 11/22/21 Range/Units 12:32 06:03 Sodium 123 L 125 L (137-145) mmol/L Chloride 95 L (98-107) mmol/L Creatinine 0.41 L (0.52-1.04) mg/dL Glucose 113 H (74-99) mg/dL Assessment and Plan Assessment: hyponatremia, possible hypovolemic, improving slowly and gradually Fall, associated with dizziness but without syncope, Secondary to above Scalp wound status post suture Hypertension Hypothyroidism History of hearing difficulty History of GERD History of osteoarthritis History of anxiety and depression, not an active issue line history of pulmonary embolism not on anticoagulation Plan: This is a pleasant 89 years old female who presents with a fall Continue continue monitoring sodium closely with nephrology team on the case and follow-up the recommendation Check urinalysis and bladder scan Discontinue [place], continue with Tylenol when necessary Continue her Xanax over lower the dose into 0.5 mg given her dizziness Labs and medication were reviewed.. Continue same treatment. Continue with symptomatic treatment. Resume home medication. Monitor lytes and vitals. DVT and GI prophylaxis. Further recommendations as per clinical course of the patient DVT prophylaxis: Subcutaneous heparin GI Prophylaxis: Pepcid PT/OT: Pending Prognosis is guarded Discussed with the bedside nurse in the emergency room
[2021-11-23] MEDS: ACETAMINOPHEN TAB 325 MG TAB PO PRN (06:02)
[2021-11-23] MEDS: LEVOTHYROXINE 25 MCG TAB PO SCH (06:02)
[2021-11-23 08:15] VITALS: RESP 18
[2021-11-23] MEDS: LOSARTAN 25 MG TAB PO SCH (09:29)
[2021-11-23] MEDS: FAMOTIDINE 20 MG TAB PO SCH (09:29)
[2021-11-23] MEDS: SODIUM CHLORIDE TAB 1 GM TAB PO SCH (09:29)
[2021-11-23] MEDS: HEPARIN SODIUM,PORCINE/PF 5,000 UNIT/0.5 ML SYRINGE SQ SCH (09:29)
--- NOTE | 2021-11-23 10:10 | P.PN ---
Subjective Patient is seen in follow-up for hyponatremia. Sodium level 125 yesterday. Oral intake improved. Denies vomiting or diarrhea. Hemodynamically stable. Vital signs are stable. General: Awake. No acute distress. HEENT: Head exam is unremarkable. LUNGS: Breath sounds decreased. HEART: Rate and Rhythm are regular. ABDOMEN: Soft, no distention. EXTREMITITES: No edema. Objective - Vital Signs Vital signs: Vital Signs Temp 97.6 F 11/23/21 08:00 Pulse 79 11/23/21 08:00 Resp 18 11/23/21 08:00 BP 127/69 11/23/21 08:00 Pulse Ox 98 11/23/21 08:00 FiO2 Intake & Output 11/22/21 11/23/21 11/23/21 18:59 06:59 18:59 Output Total 300 Balance -300 Output: Urine 300 Other: Voiding Method External Catheter External Catheter External Catheter # Voids 2 # Bowel Movements 1 - Labs CBC & Chem 7: 11/21/21 05:51 11/22/21 06:03 Assessment and Plan Plan: Assessment: 1. Hyponatremia from poor solute intake and component of SIADH. Urine osmolality 502. TSH normal. No improvement with normal saline. Sodium level 125 yesterday. 2. Benign hypertension. Stable. 3. Hypokalemia from poor intake. Replaced. Better. Plan: Encouraged oral intake, particularly protein. Maintain sodium chloride tablet once daily. Maintain fluid restriction. Follow-up morning labs.
[2021-11-23 15:21] VITALS: BP 149/83; PULSE 109; TEMP 98.1
[2021-11-23 16:55] LABS: African American GFR (CKD) 100.2 (60.0-200.0); BUN/Creat Ratio 27.6 Ratio (12.00-20.00); Blood Urea Nitrogen 13.8 mg/dL (9.0-27.0); Non-African American GFR(CKD) 86.4 (60.0-200.0); Potassium 4.9 mmol/L (3.5-5.5)
== END 2021-11-23 18:58 | disposition home health service (06) | DRG 983 ==
LOC: EC 23:07 → 4SSUR 11-20 03:27
PROVIDERS: ADMIT Hospitalist; ATTEND Hospitalist
PROC: 0JQ00ZZ Repair Scalp Subcutaneous Tissue and Fascia, Open Approach (ICD-10-PCS; principal; 2021-11-19)
PROC: 0KQ03ZZ Repair Head Muscle, Percutaneous Approach (ICD-10-PCS; principal; 2021-11-19)
PROC: 3E0234Z Introduction of Serum, Toxoid and Vaccine into Muscle, Percutaneous Approach (ICD-10-PCS; 2021-11-20)
DX: E22.2 Syndrome of inappropriate secretion of antidiuretic hormone (principal); E03.9 Hypothyroidism, unspecified; S01.01XA Laceration without foreign body of scalp, initial encounter; I10 Essential (primary) hypertension; E87.6 Hypokalemia; K21.9 Gastro-esophageal reflux disease without esophagitis; K44.9 Diaphragmatic hernia without obstruction or gangrene; M19.90 Unspecified osteoarthritis, unspecified site; H91.8X2 Other specified hearing loss, left ear; Z23 Encounter for immunization; R29.6 Repeated falls; M54.50 Low back pain, unspecified; E86.1 Hypovolemia; F32.A Depression, unspecified; F41.9 Anxiety disorder, unspecified; Z79.890 Hormone replacement therapy; Z79.899 Other long term (current) drug therapy; Z91.81 History of falling; Z86.711 Personal history of pulmonary embolism; Z90.710 Acquired absence of both cervix and uterus; Z90.49 Acquired absence of other specified parts of digestive tract; Z87.19 Personal history of other diseases of the digestive system; Z96.21 Cochlear implant status; Z97.4 Presence of external hearing-aid; Z96.651 Presence of right artificial knee joint; W01.0XXA Fall on same level from slipping, tripping and stumbling without subsequent striking against object, initial encounter; Y92.000 Kitchen of unspecified non-institutional (private) residence as the place of occurrence of the external cause; Z88.6 Allergy status to analgesic agent; Z88.1 Allergy status to other antibiotic agents; Z88.5 Allergy status to narcotic agent; Z88.0 Allergy status to penicillin; Z88.2 Allergy status to sulfonamides; Z88.8 Allergy status to other drugs, medicaments and biological substances; Z81.8 Family history of other mental and behavioral disorders; Z82.49 Family history of ischemic heart disease and other diseases of the circulatory system; Z80.1 Family history of malignant neoplasm of trachea, bronchus and lung; Z83.3 Family history of diabetes mellitus
CPT/HCPCS: 12002; 36415; 70450; 72100; 72125; 73521; 80048; 80051; 80053; 81001; 83605; 83735; 83935; 84295; 84443; 84484; 85025; 90471; 90715; 93005; 96361; 96372; 96374; 99285

== ENCOUNTER 2022-04-07 21:06 | Emergency (ER) | payer MEDICARE, BC ==
[2022-04-07] MEDS ORDERED: NYSTATIN 100,000 UNIT/GM POWD 15 GM TOPICAL STA (22:27)
[2022-04-07] MEDS ORDERED: NYSTATIN 100,000UNIT/GM CREAM 30 GM TUBE TOPICAL STA (23:33)
[2022-04-07] MEDS ORDERED: ACETAMINOPHEN TAB 325 MG TAB PO STA (23:37)
--- NOTE | 2022-04-07 23:51 | ED ---
General Adult HPI - General Chief complaint: Skin/Abscess/Foreign Body Stated complaint: Rash all over Time Seen by Provider: 04/07/22 21:37 Source: patient, RN notes reviewed Mode of arrival: ambulatory Limitations: no limitations - History of Present Illness Initial comments: 89-year-old female presents to the emergency Department with complaints of skin irritation underneath bilateral breasts, bilateral groin, and low back. States she is out of her nystatin powder and does not have a refill. Reports that this has been an ongoing issue for several months and is scheduled to follow-up with dermatology the end of April. Complains of significant itching discomfort associated with these areas of skin breakdown, but has not taken anything to t reat her symptoms prior to arrival. Patient has multiple medication allergies and is uncertain of reactions. Denies fever, chills, headache, malaise, nausea, or vomiting. - Related Data Home Medications Medication Instructions Recorded Confirmed ALPRAZolam 1 mg PO BID PRN 12/07/14 11/20/21 Levothyroxine Sodium [Synthroid] 25 mcg PO DAILY 05/13/18 11/20/21 Omeprazole Magnesium [PriLOSEC OTC] 20 mg PO DAILY 08/28/19 11/20/21 Mirabegron [Myrbetriq] 25 mg PO DAILY 11/02/21 11/20/21 Sodium Bicarbonate 325 mg PO DAILY 11/02/21 11/20/21 Previous Rx's Medication Instructions Recorded Losartan [Cozaar] 25 mg PO DAILY #30 tab 11/06/21 Melatonin 3 mg PO HS PRN #10 tab 11/06/21 Sodium Chloride Tab 1 gm PO DAILY 21 Days #21 tab 11/23/21 Nystatin 100,000 Unit/gm Powd 1 applic TOPICAL BID 10 Days #15 04/07/22 [Mycostatin Powder] gram Nystatin 100,000Unit/gm Cream 1 applic TOPICAL BID 10 Days #15 04/07/22 [Mycostatin Cream] gram Allergies Allergy/AdvReac Type Severity Reaction Status Date / Time ciprofloxacin [From Cipro] Allergy Rash/Hives/ Verified 04/07/22 21:23 Nausea ciprofloxacin HCl Allergy Rash/Hives/ Verified 04/07/22 21:23 [From Cipro] Nausea doxycycline Allergy Rash/Hives Verified 04/07/22 21:23 esomeprazole magnesium Allergy Rash/Hives Verified 04/07/22 21:23 [From Vimovo] fesoterodine [From Toviaz] Allergy Unknown Verified 04/07/22 21:23 fluconazole Allergy Rash/Hives Verified 04/07/22 21:23 hydrocodone bitartrate Allergy Hallucinati Verified 04/07/22 21:23 [From Vicodin] ons naproxen [From Vimovo] Allergy Rash/Hives Verified 04/07/22 21:23 penicillin G Allergy Rash/Hives Verified 04/07/22 21:23 sulfamethoxazole Allergy Rash/Hives Verified 04/07/22 21:23 [From Bactrim] terbinafine Allergy Rapid Verified 04/07/22 21:23 Heart Rate tramadol Allergy Unknown Verified 04/07/22 21:23 trimethoprim [From Bactrim] Allergy Rash/Hives Verified 04/07/22 21:23 hydrocodone [From Elizabeth] AdvReac HEADACHE Verified 04/07/22 21:23 levofloxacin [From Levaquin] AdvReac Itching Verified 04/07/22 21:23 mirabegron [From Myrbetriq] AdvReac HEADACHE/BLURRED Verified 04/07/22 21:23 VISION oxybutynin AdvReac BLURRED Verified 04/07/22 21:23 VISION phenazopyridine AdvReac Itching Verified 04/07/22 21:23 Review of Systems ROS Statement: Those systems with pertinent positive or pertinent negative responses have been documented in the HPI. ROS Other: All systems not noted in ROS Statement are negative. Past Medical History Past Medical History: GERD/Reflux, Hearing Disorder / Deafness, Hypertension, Osteoarthritis (OA), Pulmonary Embolus (PE), Thyroid Disorder Additional Past Medical History / Comment(s): 12-07-14 admitted to [facility] with c/o chest pain. other hx:hiatal hernia, PE AFTER KNEE SX, INCONT OF URINE, DEAF RT EAR [place] LT WEARS HEARING AID,UPPER DENTURE AND WEARS GLASSES TO READ. 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 Past Surgical History: Cholecystectomy, Heart Catheterization, Hysterectomy, Joint Replacement, Tonsillectomy Additional Past Surgical History / Comment(s): cochlear implant, acoustic tumor removed rt ear 2010, egd/colonoscopy, rt carpal tunnel, rt knee replacement, SHAMEKA CATARACTS Past Anesthesia/Blood Transfusion Reactions: No Reported Reaction Past Psychological History: Anxiety, Depression Smoking Status: Never smoker Past Alcohol Use History: None Reported Past Drug Use History: None Reported - Past Family History Father Family Medical History: Dementia Mother Family Medical History: Cancer, Hypertension Additional Family Medical History / Comment(s): from lung cancer Brother(s) Family Medical History: Diabetes Mellitus Sister(s) Family Medical History: Cancer Additional Family Medical History / Comment(s): BRAIN Son(s) Family Medical History: Coronary Artery Disease (CAD) General Exam Limitations: no limitations General appearance: alert, other (patient appears moderately uncomfortable but in no acute distress) ENT exam: Present: normal oropharynx (no thrush), mucous membranes moist Respiratory exam: Present: normal lung sounds bilaterally. Absent: respiratory distress, wheezes, rales, rhonchi, stridor Cardiovascular Exam: Present: regular rate, normal rhythm, normal heart sounds. Absent: systolic murmur, diastolic murmur, rubs, gallop, clicks GI/Abdominal exam: Present: soft, normal bowel sounds. Absent: distended, tenderness, guarding, rebound, rigid Neurological exam: Present: alert, oriented X3 Psychiatric exam: Present: anxious Skin exam: Present: warm Expanded Type of lesion: Present: other (erythematous areas of skin breakdown in folds of bilateral groin and breasts- satellite lesions. Whitish-yellow coating. Er ythematous areas to low back with surrounding dry plaques. ) Course Vital Signs 04/07/22 04/08/22 21:20 00:19 Temperature 97.9 F 97.6 F Pulse Rate 80 81 Respiratory 18 16 Rate Blood Pressure 142/60 137/82 O2 Sat by Pulse 96 97 Oximetry - Reevaluation(s) Reevaluation #1: 04/07/2022 23:00 Discussed medication options and treatment plan at length. Reviewed symptomatic management and the importance of minimizing prolonged exposure to excess moisture. Family reports this has been an ongoing issue for months and that they are finally going to see dermatology in a few weeks. Encouraged to call the office to inquire if another appointment time could be obtained more timely. Medical Decision Making - Medical Decision Making Was pt. sent in by a medical professional or institution? @ -No Did you speak to anyone other than the patient for history? @ -Son Did you review nursing and triage notes? @ -Yes, agree Were old charts reviewed? @ -No Differential Diagnosis? @ -Herpes zoster, colin dermatitis, tinea cruris EKG interpreted by me (3pts min.)? @ -N/A X-rays interpreted by me (1pt min.)? @ -N/A CT interpreted by me (1pt min.)? @ -N/A U/S interpreted by me (1pt. min.)? @ -N/A What testing was considered but not performed? (CT, X-rays, U/S, labs)? Why? @ Laboratory studies were considered but not performed as this patient demonstrating no systemic symptoms What meds were considered but not given? Why? @ -Oral fluconazole considered but not given due to patient's ALLERGIES Did you discuss the management of the patient with other professionals? @ -No Did you reconcile home meds? @ -No Was smoking cessation discussed for >3mins.? @ -No Was critical care preformed (if so, how long)? @ -No Were there social determinants of health that impacted care today? How? (Homelessness, low income, unemployed, alcoholism, drug addiction, transportation, low edu. Level, literacy, decrease access to med. care, longterm, rehab)? @ -Now Was there de-escalation of care discussed even if they declined? (Discuss DNR or withdrawal of care, Hospice)? @ -No What co-morbidities impacted this encounter? (DM, HTN, Smoking, COPD, CAD, Cancer, CVA, Hep., AIDS, mental health diagnosis, sleep apnea, morbid obesity)? @ -None Was patient admitted / discharged? @ -Discharged Undiagnosed new problem with uncertain prognosis? @ -No Drug Therapy requiring intensive monitoring for toxicity (Heparin, Nitro, Insulin, Cardizem)? @ -No Were any procedures done? @ -No Diagnosis/symptom? @ -Colin dermatitis. 89-year-old female presents to the emergency Department with complaints of discomfort associated with ongoing yeast infection. Upon exam, patient is well- appearing moderately uncomfortable. Erythematous skin breakdown in intertriginous areas. Given age and extensive ALLERGIES, treatment is limited to topical antifungal. Nystatin applied and prescribed. Tylenol for discomfort with some improvement. Discussed with her symptomatic management and encourage follow-up as scheduled. Return parameters discussed in detail. Patient and family verbalized understanding and agreed with this plan. Attending: Adan. Acute, or Chronic, or Acute on Chronic? @ -Acute on Chronic Uncomplicated (without systemic symptoms) or Complicated (systemic symptoms)? @ -Uncomplicated Side effects of treatment? @ -None Exacerbation, Progression, or Severe Exacerbation] @ -Exacerbation Poses a threat to life or bodily function? @ -No Disposition Clinical Impression: Candidal dermatitis Disposition: HOME SELF-CARE Condition: Stable Instructions (If sedation given, give patient instructions): Skin Yeast Infection (ED) Additional Instructions: Applied nystatin powder to the areas of moisture which include under the breasts and the groin. Apply nystatin cream to the low back. Keep appointment with dermatology as scheduled. Return to the emergency department with any new, worsening, or concerning symptoms. Prescriptions: Nystatin 100,000Unit/gm Cream [Mycostatin Cream] 1 applic TOPICAL BID 10 Days #15 gram Nystatin 100,000 Unit/gm Powd [Mycostatin Powder] 1 applic TOPICAL BID 10 Days #15 gram Is patient prescribed a controlled substance at d/c from ED?: No Referrals: Juan A Dey DO [Primary Care Provider] - 1-2 days Time of Disposition: 23:50
[2022-04-08 00:20] VITALS: BP 137/82; PULSE 81; RESP 16; TEMP 97.6
== END 2022-04-08 00:19 | disposition home or self-care (01) ==
LOC: EC 21:06
DX: B37.2 Candidiasis of skin and nail (principal); K21.9 Gastro-esophageal reflux disease without esophagitis; I10 Essential (primary) hypertension; E07.9 Disorder of thyroid, unspecified; I26.99 Other pulmonary embolism without acute cor pulmonale; F41.9 Anxiety disorder, unspecified; F32.A Depression, unspecified; Z88.0 Allergy status to penicillin; Z88.1 Allergy status to other antibiotic agents; Z88.2 Allergy status to sulfonamides; Z88.3 Allergy status to other anti-infective agents; Z88.5 Allergy status to narcotic agent; Z88.6 Allergy status to analgesic agent; Z88.8 Allergy status to other drugs, medicaments and biological substances; Z79.890 Hormone replacement therapy; Z79.899 Other long term (current) drug therapy
CPT/HCPCS: 99282

== ENCOUNTER 2022-10-08 16:02 | Inpatient (IN) | payer MEDICARE, BC ==
[2022-10-08] MEDS ORDERED: MORPHINE SULFATE 4 MG/ML SYRINGE IV STA (17:24)
--- NOTE | 2022-10-08 17:25 | ED ---
General Adult HPI - General Chief complaint: Fall Stated complaint: fall Time Seen by Provider: 10/08/22 16:09 Source: patient Limitations: no limitations - History of Present Illness Initial comments: Dictation was produced using [employer] dictation software. please excuse any grammatical, word or spelling errors. Chief Complaint: 89-year-old female presents with right hip pain after fall History of Present Illness: Patient is an 89-year-old female presents emergency Department right hip pain after fall. Patient fell on Saturday which is 3 days ago prior to arrival. States that she landed on her right hip. Patient's history of falls patient was with a walker. One month ago she fell her left leg. She still experiencing pain from that. Patient states she has been difficulty walking due to the pain. Denies any numbness and paresthesias to the right lower extremity. Denies any head injury. Patient has no other complaints. The ROS documented in this emergency department record has been reviewed and confirmed by me. Those systems with pertinent positive or negative responses have been documented in the HPI. All other systems are other negative and/or noncontributory. - Related Data Home Medications Medication Instructions Recorded Confirmed ALPRAZolam 1 mg PO BID PRN 12/07/14 10/08/22 Levothyroxine Sodium [Synthroid] 25 mcg PO DAILY 05/13/18 10/08/22 Ascorbic Acid [Vitamin C] 500 mg PO DAILY 10/08/22 10/08/22 Cholecalciferol [Vitamin D3 (25 25 mcg PO DAILY 10/08/22 10/08/22 Mcg = 1000 Iu)] Docusate [Colace] 100 mg PO DAILY PRN 10/08/22 10/08/22 Ibuprofen [Motrin] 800 mg PO Q8H PRN 10/08/22 10/08/22 Ketoconazole 2% Cream [Nizoral 2%] 1 applic TOPICAL BID PRN 10/08/22 10/08/22 Losartan-Hctz 50-12.5 mg [Hyzaar 1 tab PO DAILY 10/08/22 10/08/22 50-12.5] Magnesium 250 mg PO DAILY 10/08/22 10/08/22 Nitrofurantoin Monohyd/M-Cryst 100 mg PO Q12HR 10/08/22 10/08/22 [Macrobid] Nystatin 100,000 Unit/gm Powd 1 applic TOPICAL TID PRN 10/08/22 10/08/22 [Mycostatin Powder] Nystatin 100,000Unit/gm Cream 1 applic TOPICAL BID PRN 10/08/22 10/08/22 [Mycostatin Cream] oxyBUTYnin chloride [Ditropan] 5 mg PO TID PRN 10/08/22 10/08/22 Allergies Allergy/AdvReac Type Severity Reaction Status Date / Time ciprofloxacin [From Cipro] Allergy Rash/Hives/ Verified 10/08/22 21:00 Nausea ciprofloxacin HCl Allergy Rash/Hives/ Verified 10/08/22 21:00 [From Cipro] Nausea doxycycline Allergy Rash/Hives Verified 10/08/22 21:00 esomeprazole magnesium Allergy Rash/Hives Verified 10/08/22 21:00 [From Vimovo] fesoterodine [From Toviaz] Allergy BLURRED Verified 10/08/22 21:00 VISION fluconazole Allergy Rash/Hives Verified 10/08/22 21:00 hydrocodone bitartrate Allergy Hallucinati Verified 10/08/22 21:00 [From Vicodin] ons naproxen [From Vimovo] Allergy Rash/Hives Verified 10/08/22 21:00 penicillin G Allergy Rash/Hives Verified 10/08/22 21:00 sulfamethoxazole Allergy Rash/Hives Verified 10/08/22 21:00 [From Bactrim] terbinafine Allergy Rapid Verified 10/08/22 21:00 Heart Rate tramadol Allergy HEADACHE, Verified 10/08/22 21:00 INCREASED PAIN trimethoprim [From Bactrim] Allergy Rash/Hives Verified 10/08/22 21:00 hydrocodone [From Tennyson] AdvReac HEADACHE Verified 10/08/22 21:00 levofloxacin [From Levaquin] AdvReac Itching Verified 10/08/22 21:00 mirabegron [From Myrbetriq] AdvReac HEADACHE/BLURRED Verified 10/08/22 21:00 VISION phenazopyridine AdvReac Itching Verified 10/08/22 21:00 Review of Systems ROS Statement: Those systems with pertinent positive or pertinent negative responses have been documented in the HPI. ROS Other: All systems not noted in ROS Statement are negative. Past Medical History Past Medical History: GERD/Reflux, Hearing Disorder / Deafness, Hypertension, Osteoarthritis (OA), Pulmonary Embolus (PE), Thyroid Disorder Additional Past Medical History / Comment(s): 12-07-14 admitted to [facility] with c/o chest pain. other hx:hiatal hernia, PE AFTER KNEE SX, INCONT OF URINE, DEAF RT EAR [place] LT WEARS HEARING AID,UPPER DENTURE AND WEARS GLASSES TO READ. 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 Past Surgical History: Cholecystectomy, Heart Catheterization, Hysterectomy, Joint Replacement, Tonsillectomy Additional Past Surgical History / Comment(s): cochlear implant, acoustic tumor removed rt ear 2010, egd/colonoscopy, rt carpal tunnel, rt knee replacement, SHAMEKA CATARACTS Past Anesthesia/Blood Transfusion Reactions: No Reported Reaction Past Psychological History: Anxiety, Depression Smoking Status: Never smoker Past Alcohol Use History: None Reported Past Drug Use History: None Reported - Past Family History Father Family Medical History: Dementia Mother Family Medical History: Cancer, Hypertension Additional Family Medical History / Comment(s): from lung cancer Brother(s) Family Medical History: Diabetes Mellitus Sister(s) Family Medical History: Cancer Additional Family Medical History / Comment(s): BRAIN Son(s) Family Medical History: Coronary Artery Disease (CAD) General Exam - General Exam Comments Initial Comments: PHYSICAL EXAM: General Impression: Alert and oriented x3, acute distress secondary to pain HEENT: Normocephalic atraumatic, extra-ocular movements intact, pupils equal and reactive to light bilaterally, mucous membranes moist. Cardiovascular: Heart regular rate and rhythm Chest: Able to complete full sentences, no retractions, no tachypnea Abdomen: abdomen soft, non-tender, non-distended, no organomegaly Musculoskeletal: Pulses present and equal in all extremities, no peripheral edema, pain reproduced with manipulation of the right hip Motor: no focal deficits noted Neurological: CN II-XII grossly intact, no focal motor or sensory deficits noted Skin: Intact with no visualized rashes Psych: Normal affect and mood Limitations: no limitations Course Vital Signs 10/08/22 17:49 Temperature 99 F Pulse Rate 88 Respiratory 15 Rate Blood Pressure 145/72 O2 Sat by Pulse 93 L Oximetry EKG Findings - EKG Comments: EKG Findings:: My EKG interpretation: Ventricular rate 83, sinus rhythm, ND interval 130, QRS 12, QTC 411. No ND prolongation, no QTC prolongation. There is. Be new T-wave inversions and lead 3 and aVF. There also appears to be ST depressions and high lateral leads and lateral leads. Medical Decision Making - Medical Decision Making Was pt. sent in by a medical professional or institution (, DAVIDSON, CONCESSION MANAGER, urgent care, hospital, or detention...) When possible be specific @ -No Did you speak to anyone other than the patient for history (EMS, parent, family, police, friend...)? What history was obtained from this source @ -No Did you review nursing and triage notes (agree or disagree)? Why? @ -I reviewed and agree with nursing and triage notes Were old charts reviewed (outside hosp., previous admission, EMS record, old EKG, old radiological studies, urgent care reports/EKG's, detention records)? Report findings @ -No old charts were reviewed Differential Diagnosis (chest pain, altered mental status, abdominal pain women, abdominal pain men, vaginal bleeding, musculoskeletal, weakness, fever, dyspnea, syncope, headache, dizziness, GI bleed, back pain, seizure, CVA, palpatations, mental health)? @ -Differential Musculoskeletal: Muscular strain, contusion, ligament sprain, fracture, arthritis, septic arthritis, bursitis, cellulitis, muscle spasm, nerve compression, DVT, arterial occlusion, herpes zoster, electrolyte abnormality, tumor.... This is not meant to be in all inclusive list EKG interpreted by me (3pts min.). @ -None done X-rays interpreted by me (1pt min.). @ -Chest x-ray is nonacute, pelvis x-ray shows right-sided superior and inferior pubic rami fractures CT interpreted by me (1pt min.). @ -CT Scan of the brain and C-spine shows no acute processes U/S interpreted by me (1pt. min.). @ -None done What testing was considered but not performed or refused? (CT, X-rays, U/S, labs)? Why? @ -None What meds were considered but not given or refused? Why? @ -None Did you discuss the management of the patient with other professionals (professionals i.e. DAVIDSON Arreola, CONCESSION MANAGER, lab, RT, psych nurse, bilingual social worker, lawyer real estate, teacher, disciplinary hearing officer, case management manager)? Give summary @ -Case was discussed with Dr. Lee for admission. Case was also discussed with Dr. Lorenz for hypokalemia and abnormal EKG Was smoking cessation discussed for >3mins.? @ -No Was critical care preformed (if so, how long)? @ -No Were there social determinants of health that impacted care today? How? (Homelessness, low income, unemployed, alcoholism, drug addiction, tr ansportation, low edu. Level, literacy, decrease access to med. care, snf, rehab)? @ -No Was there de-escalation of care discussed even if they declined (Discuss DNR or withdrawal of care, Hospice)? DNR status @ -No What co-morbidities impacted this encounter? (DM, HTN, Smoking, COPD, CAD, Cancer, CVA, ARF, Chemo, Hep., AIDS, mental health diagnosis, sleep apnea, morbid obesity)? @ -None Was patient admitted / discharged? Hospital course, mention meds given and route, prescriptions, significant lab abnormalities, going to OR and other pertinent info. @ -89-year-old female presents with hip pain after fall. Vital signs stable. EKG shows abnormal findings which may represent ischemia she does not have any chest symptoms however. Patient also has hypokalemia of 2.6. Patient given IV potassium. X-ray shows pubic rami fractures. Patient admitted to [facility] with medicine on consult. Cardiology also consulted. Undiagnosed new problem with uncertain prognosis? @ -No Drug Therapy requiring intensive monitoring for toxicity (Heparin, Nitro, Insulin, Cardizem)? @ -No Were any procedures done? @ -No Diagnosis/symptom? Acute, or Chronic, or Acute on Chronic? Uncomplicated (without systemic symptoms) or Complicated (systemic symptoms)? @ -1. Abnormal EKG, 2. Pelvic fracture, 3. Hypokalemia Side effects of treatment? @ -No Exacerbation, Progression, or Severe Exacerbation? @ -No Poses a threat to life or bodily function? How? (Chest pain, USA, MS, pneumonia, PE, COPD, DKA, ARF, appy, cholecystitis, CVA, Diverticulitis, Homicidal, Suicidal, threat to staff... and all critical care pts) @ -yes - Lab Data Result diagrams: 10/08/22 17:49 10/08/22 17:49 Lab Results 10/08/22 10/08/22 10/08/22 Range/Units 17:49 17:49 17:49 WBC 11.4 H (3.8-10.6) k/uL RBC 4.26 (3.80-5.40) m/uL Hgb 12.0 (11.4-16.0) gm/dL Hct 36.1 (34.0-46.0) % MCV 84.6 (80.0-100.0) fL MCH 28.2 (25.0-35.0) pg MCHC 33.3 (31.0-37.0) g/dL RDW 15.5 (11.5-15.5) % Plt Count 179 (150-450) k/uL MPV 7.8 Neutrophils % 89 % Lymphocytes % 5 % Monocytes % 3 % Eosinophils % 1 % Basophils % 0 % Neutrophils # 10.2 H (1.3-7.7) k/uL Lymphocytes # 0.6 L (1.0-4.8) k/uL Monocytes # 0.4 (0-1.0) k/uL Eosinophils # 0.1 (0-0.7) k/uL Basophils # 0.0 (0-0.2) k/uL PT 10.4 (9.0-12.0) sec INR 1.0 (<1.2) APTT 23.6 (22.0-30.0) sec Sodium 122 L (137-145) mmol/L Potassium 2.6 L* (3.5-5.1) mmol/L Chloride 92 L (98-107) mmol/L Carbon Dioxide 24 (22-30) mmol/L Anion Gap 6 mmol/L BUN 15 (7-17) mg/dL Creatinine 0.35 L (0.52-1.04) mg/dL Est GFR (CKD-EPI)AfAm >90 (>60 ml/min/1.73 sqM) Est GFR (CKD-EPI)NonAf >90 (>60 ml/min/1.73 sqM) Glucose 134 H (74-99) mg/dL Calcium 8.5 (8.4-10.2) mg/dL Disposition Clinical Impression: Pelvic fracture, Hypokalemia Disposition: ADMITTED IP TO THIS HOSP Condition: Fair Referrals: Juan A Dey DO [Primary Care Provider] - 1-2 days Decision Time: 20:30
[2022-10-08 18:14] LABS: Basophils % (A) 0 %; Eosinophils # (A) 0.1 k/uL (0-0.7); Eosinophils % (A) 1 %; HCT 36.1 % (34.0-46.0); Lymphocytes # (A) 0.6 k/uL (1.0-4.8); Lymphocytes % (A) 5 %; MCH 28.2 pg (25.0-35.0); MCHC 33.3 g/dL (31.0-37.0); MCV 84.6 fL (80.0-100.0); Mean Platelet Volume 7.8; Monocytes # (A) 0.4 k/uL (0-1.0); Monocytes % (A) 3 %; Neutrophils # (A) 10.2 k/uL (1.3-7.7); Neutrophils % (A) 89 %; Platelet Count 179 k/uL (150-450); RBC 4.26 m/uL (3.80-5.40); RDW 15.5 % (11.5-15.5); WBC 11.4 k/uL (3.8-10.6)
[2022-10-08 18:22] LABS: Partial Thromboplastin Time 23.6 sec (22.0-30.0); Prothrombin Time 10.4 sec (9.0-12.0)
[2022-10-08 18:32] LABS: African American GFR (CKD) >90 (>60 ml/min/1.73 sqM); Anion Gap 6 mmol/L; Blood Urea Nitrogen 15 mg/dL (7-17); Calcium 8.5 mg/dL (8.4-10.2); Carbon Dioxide 24 mmol/L (22-30); Chloride 92 mmol/L (98-107); Glucose 134 mg/dL (74-99); Non-African American GFR(CKD) >90 (>60 ml/min/1.73 sqM); Sodium 122 mmol/L (137-145)
[2022-10-08 18:59] LABS: Potassium 2.6 mmol/L (3.5-5.1)
[2022-10-08] MEDS ORDERED: POTASSIUM CHLORIDE 40 MEQ in WATER FOR INJECTION 1 100ML.BAG IVPB STA (19:35)
--- NOTE | 2022-10-08 19:39 | CT ---
EXAMINATION TYPE: CT brain cspine wo con CT DLP: 1334 mGycm, Automated exposure control for dose reduction was used. DATE OF EXAM: 10/08/2022 6:43 PM COMPARISON: 11/20/2021 CLINICAL INDICATION:Female, 89 years old with history of fall; TECHNIQUE: Brain: Multiple axial CT images of the brain were obtained without IV contrast. Cspine: Axial CT images from the skull base to the inferior aspect of T2 we obtained without intraven ous contrast. Coronal and sagittal reformatted images were also reviewed. FINDINGS: Brain: Extra-axial spaces: No abnormal extra-axial fluid collections. Ventricular system: Dilatation in proportion to cerebral atrophy. Cerebral parenchyma: Cerebral atrophy. No acute intraparenchymal hemorrhage or mass effect. The corbin -white junction is well differentiated. Scattered hypoattenuating areas are seen within the white mat ter. Cerebellum: Unremarkable. Mass effect: No evidence of midline shift. Intracranial vasculature: Atherosclerotic calcifications of the intracranial vessels. Soft tissues: Normal. Calvarium/osseous structures: No depressed skull fracture. Postsurgical changes to the bilateral temp oral bones. Electronic device over the left skull is present. Paranasal sinuses and mastoid air cells: Clear. Visualized orbits: Bilateral aphakia Cervical spine: Fracture: None. Osseous structures: Multilevel degenerative disc disease changes with endplate spurring and disc oste ophyte complex's. Vertebral alignment: Within normal limits. Spinal canal/Neural Foramina: Disc osteophyte complexes at C5-C6 with at least mild spinal canal sten osis. Facet joint uncovertebral joint arthropathy scattered throughout the cervical spine with varyin g degrees of neural foraminal stenosis. No foraminal stenosis worse at C5-C6. Neck soft tissues: Prevertebral soft tissues are within normal limits. Other: The airway is patent. The lung apices are clear. IMPRESSION: 1. No acute intracranial process. 2. Nonspecific white matter changes, likely secondary to chronic small vessel ischemic disease. 3. Similar postsurgical changes. 4. No evidence of cervical spine fracture. 5. Mild multilevel degenerative disc disease.
--- NOTE | 2022-10-08 20:10 | XR ---
EXAMINATION TYPE: XR chest 2V DATE OF EXAM: 10/08/2022 8:01 PM COMPARISON: Chest radiographs from 06/05/2021 TECHNIQUE: XR chest 2V Frontal and lateral views of the chest. CLINICAL INDICATION:Female, 89 years old with history of fall; FINDINGS: Lungs/Pleura: There is 6 no evidence of pleural effusion, focal consolidation, or pneumothorax. Pulmonary vascularity: Unremarkable. Heart/mediastinum: Cardiomediastinal silhouette is enlarged and stable. Atherosclerotic calcificatio ns are seen in the aorta. Musculoskeletal: No acute osseous pathology. IMPRESSION: 1. No evidence for acute fracture. 2. Low lung volumes with a generalized hazy appearance which could represent atelectasis versus pulm onary edema correlate with serum BNP.
--- NOTE | 2022-10-08 20:14 | XR ---
EXAMINATION TYPE: XR Hip RT and AP Pelvis DATE OF EXAM: 10/08/2022 8:01 PM INDICATION: Patient age:Female; 89 years old; Reason for study: fall; COMPARISON: None. TECHNIQUE: The right hip was examined in the frontal and lateral projections and a AP pelvis. FINDINGS: Cortical irregularities the inferior and superior pubic ramus on the right. No Joint disloc ation or significant soft tissue swelling. Osteophyte formation of the superior acetabulum of the hip s. Atherosclerosis of the arterial vasculature. Dystrophic of secretions within the right L5. Postsur gical changes L4-L5 with hardware present. IMPRESSION: 1. Right superior and inferior pubic ramus cortical irregularities concerning for fracture. Confirmat ion CT is recommended. 2. Mild hip osteoarthrosis.
[2022-10-08] MEDS ORDERED: NALOXONE 0.4 MG/ML 1 ML VIAL IV PRN (21:09)
[2022-10-09] MEDS: SODIUM CHLORIDE 0.9% 1,000 ML IV SCH ×2 (01:18→23:34)
[2022-10-09 05:10] LABS: Potassium 3.4 mmol/L (3.5-5.1)
[2022-10-09] MEDS: MORPHINE SULFATE 4 MG/ML SYRINGE IV PRN ×2 (08:33→20:14)
[2022-10-09] MEDS: LEVOTHYROXINE 25 MCG TAB PO SCH (08:33)
[2022-10-09] MEDS: MAGNESIUM OXIDE 400 MG TAB PO SCH (08:33)
[2022-10-09] MEDS ORDERED: oxyBUTYnin chloride 5 MG TAB PO PRN (09:11)
[2022-10-09] MEDS ORDERED: DOCUSATE 100 MG CAP PO PRN (09:11)
[2022-10-09] MEDS ORDERED: ALPRAZolam 1 MG TAB PO PRN (09:11)
[2022-10-09] MEDS: LOSARTAN-HCTZ 50-12.5 MG 1 EACH TAB PO SCH (09:40)
--- NOTE | 2022-10-09 10:12 | P.HPOR ---
History of Present Illness H&P Date: 10/09/22 This is an 89-year-old female who is admitted for pelvic fractures. Patient states that she fell on 10/06/2022 at home. Patient states that she sustained an injury to the pelvis and an abrasion over her right elbow. Patient states that she lives at home with her . Patient denies any fever/chills, numbness, weakness, tingling, abdominal pain, shortness of breath or chest pain. Patient's past medical history significant for GERD, hypertension, osteoarthritis, PE and thyroid disorder. Review of Systems See HPI. Past Medical History Past Medical History: GERD/Reflux, Hearing Disorder / Deafness, Hypertension, Osteoarthritis (OA), Pulmonary Embolus (PE), Thyroid Disorder Additional Past Medical History / Comment(s): 12-07-14 admitted to [facility] with c/o c hest pain. other hx:hiatal hernia, PE AFTER KNEE SX, INCONT OF URINE, DEAF RT EAR [place] LT WEARS HEARING AID,UPPER DENTURE AND WEARS GLASSES TO READ. 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 Past Surgical History: Cholecystectomy, Heart Catheterization, Hysterectomy, Joint Replacement, Tonsillectomy Additional Past Surgical History / Comment(s): cochlear implant, acoustic tumor removed rt ear 2010, egd/colonoscopy, rt carpal tunnel, rt knee replacement, SHAMEKA CATARACTS Past Anesthesia/Blood Transfusion Reactions: No Reported Reaction Past Psychological History: Anxiety, Depression Smoking Status: Never smoker Past Alcohol Use History: None Reported Past Drug Use History: None Reported - Past Family History Father Family Medical History: Dementia Mother Family Medical History: Cancer, Hypertension Additional Family Medical History / Comment(s): from lung cancer Brother(s) Family Medical History: Diabetes Mellitus Sister(s) Family Medical History: Cancer Additional Family Medical History / Comment(s): BRAIN Son(s) Family Medical History: Coronary Artery Disease (CAD) Medications and Allergies Home Medications Medication Instructions Recorded Confirmed Type ALPRAZolam 1 mg PO BID PRN 12/07/14 10/08/22 History Levothyroxine Sodium [Synthroid] 25 mcg PO DAILY 05/13/18 10/08/22 History Ascorbic Acid [Vitamin C] 500 mg PO DAILY 10/08/22 10/08/22 History Cholecalciferol [Vitamin D3 (25 25 mcg PO DAILY 10/08/22 10/08/22 History Mcg = 1000 Iu)] Docusate [Colace] 100 mg PO DAILY PRN 10/08/22 10/08/22 History Ibuprofen [Motrin] 800 mg PO Q8H PRN 10/08/22 10/08/22 History Ketoconazole 2% Cream [Nizoral 2%] 1 applic TOPICAL BID PRN 10/08/22 10/08/22 History Losartan-Hctz 50-12.5 mg [Hyzaar 1 tab PO DAILY 10/08/22 10/08/22 History 50-12.5] Magnesium 250 mg PO DAILY 10/08/22 10/08/22 History Nitrofurantoin Monohyd/M-Cryst 100 mg PO Q12HR 10/08/22 10/08/22 History [Macrobid] Nystatin 100,000 Unit/gm Powd 1 applic TOPICAL TID PRN 10/08/22 10/08/22 History [Mycostatin Powder] Nystatin 100,000Unit/gm Cream 1 applic TOPICAL BID PRN 10/08/22 10/08/22 History [Mycostatin Cream] oxyBUTYnin chloride [Ditropan] 5 mg PO TID PRN 10/08/22 10/08/22 History Allergies Allergy/AdvReac Type Severity Reaction Status Date / Time ciprofloxacin [From Cipro] Allergy Rash/Hives/ Verified 10/08/22 21:00 Nausea ciprofloxacin HCl Allergy Rash/Hives/ Verified 10/08/22 21:00 [From Cipro] Nausea doxycycline Allergy Rash/Hives Verified 10/08/22 21:00 esomeprazole magnesium Allergy Rash/Hives Verified 10/08/22 21:00 [From Vimovo] fesoterodine [From Toviaz] Allergy BLURRED Verified 10/08/22 21:00 VISION fluconazole Allergy Rash/Hives Verified 10/08/22 21:00 hydrocodone bitartrate Allergy Hallucinati Verified 10/08/22 21:00 [From Vicodin] ons naproxen [From Vimovo] Allergy Rash/Hives Verified 10/08/22 21:00 penicillin G Allergy Rash/Hives Verified 10/08/22 21:00 sulfamethoxazole Allergy Rash/Hives Verified 10/08/22 21:00 [From Bactrim] terbinafine Allergy Rapid Verified 10/08/22 21:00 Heart Rate tramadol Allergy HEADACHE, Verified 10/08/22 21:00 INCREASED PAIN trimethoprim [From Bactrim] Allergy Rash/Hives Verified 10/08/22 21:00 hydrocodone [From [place]] AdvReac HEADACHE Verified 10/08/22 21:00 levofloxacin [From Levaquin] AdvReac Itching Verified 10/08/22 21:00 mirabegron [From Myrbetriq] AdvReac HEADACHE/BLURRED Verified 10/08/22 21:00 VISION phenazopyridine AdvReac Itching Verified 10/08/22 21:00 Physical Examination On exam patient is resting comfortably in bed in no acute distress. Patient is alert and oriented 3. Right lower extremity: There is pain with any attempted motion of the right lower extremity. Skin is intact. Calf is soft and nontender to palpation. Sensation intact. Neurovascular status and circulatory status are intact. There is a large skin tear near the right elbow. Otherwise, exams of bilateral upper extremities and the left lower extremity are within normal limits. Head is normocephalic and atraumatic. Results X-rays of the right hip and pelvis reveal right superior and inferior pubic rami fractures. - Labs Labs: Abnormal Lab Results - Last 24 Hours (Table) 10/08/22 10/08/22 10/09/22 Range/Units 17:49 17:49 04:54 WBC 11.4 H (3.8-10.6) k/uL Neutrophils # 10.2 H (1.3-7.7) k/uL Lymphocytes # 0.6 L (1.0-4.8) k/uL Sodium 122 L 126 L (137-145) mmol/L Potassium 2.6 L* 3.4 L (3.5-5.1) mmol/L Chloride 92 L (98-107) mmol/L Creatinine 0.35 L (0.52-1.04) mg/dL Glucose 134 H (74-99) mg/dL H & H 10/08/22 Range/Units 17:49 Hgb 12.0 (11.4-16.0) gm/dL Hct 36.1 (34.0-46.0) % Coagulation 10/08/22 Range/Units 17:49 INR 1.0 (<1.2) Result Diagrams: 10/08/22 17:49 10/09/22 04:54 Assessment and Plan (1) Pelvic fracture Current Visit: Yes Status: Acute Code(s): S32.9XXA - FRACTURE OF UNSP PARTS OF LUMBOSACRAL SPINE AND PELVIS, INIT SNOMED Code(s): 84138112 Plan: 1. Recommend nonweightbearing to the right lower extremity with a walker. Physical therapy for mobilization. 2. Appreciate input from internal medicine. Patient is also being evaluated by cardiology for an abnormal EKG. 3. Patient will likely need ECF placement.
[2022-10-09] MEDS: ONDANSETRON 4 MG/2 ML VIAL IVP PRN ×2 (11:31→20:24)
--- NOTE | 2022-10-09 12:50 | P.CONS ---
History of Present Illness - Reason for Consult Consult date: 10/09/22 Medical management - History of Present Illness History of present illness; patient is 89-year-old lady with past medical si gnificant for hypothyroidism, hypertension presented to the ER because of a fall. She stated that she fell 3 days ago. Patient has been having pain in her right hip ever since that. Patient unable to bear weight on her right hip. Denies any chest pain or shortness of breath and nausea, vomiting or abdominal pain. Patient walks with a walker at home and has been falling frequently. Because of the fall, patient came to the ER Initial lab work done in the ER showed up to 0.4, hemoglobin 12, sodium 122, potassium 2.6, BUN 15, troponin was negative EKG done showed ST depression in lead 1, aVL, V4 and V5 and V6 CT of the head and cervical spine done, showed no acute cranial process, no cervical fractures, no cervical spine fracture X-ray of the hip showed right superior inferior pubic ramus fracture REVIEW OF SYSTEMS: CONSTITUTIONAL: No fever, no malaise, no fatigue. HEENT: No recent visual problems or hearing problems. Denied any sore throat. CARDIOVASCULAR: No chest pain, orthopnea, PND, no palpitations, no syncope. PULMONARY: No shortness of breath, no cough, no hemoptysis. GASTROINTESTINAL: No diarrhea, complaining of nausea and vomiting. Denies abdominal pain NEUROLOGICAL: No headaches, no weakness, no numbness. HEMATOLOGICAL: Denies any bleeding or petechiae. GENITOURINARY: Denies any burning micturition, frequency, or urgency. MUSCULOSKELETAL/RHEUMATOLOGICAL: As mentioned in HPI ENDOCRINE: Denies any polyuria or polydipsia. The rest of the 14-point review of systems is negative. PHYSICAL EXAMINATION: GENERAL: The patient is alert and oriented x3, not in any acute distress. Well developed, well nourished. HEENT: Pupils are round and equally reacting to light. EOMI. No scleral icterus. No conjunctival pallor. Normocephalic, atraumatic. No pharyngeal erythema. No thyromegaly. CARDIOVASCULAR: S1 and S2 present. No murmurs, rubs, or gallops. PULMONARY: Chest is clear to auscultation, no wheezing or crackles. ABDOMEN: Soft, nontender, nondistended, normoactive bowel sounds. No palpable organomegaly. MUSCULOSKELETAL: No joint swelling or deformity. EXTREMITIES: No cyanosis, clubbing, or pedal edema. Right hip tenderness noticeable NEUROLOGICAL: Gross neurological examination did not reveal any focal deficits. SKIN: No rashes. Assessment and plan Pubic fracture Hyponatremia Hypokalemia Fall Hypertension Hypothyroidism Abnormal EKG GERD History of osteoarthritis Monitor Vital signs Monitor CBC Monitor CMP Replace electrolytes. Continue IV fluids Continue pain management per orthopedics Continue DVT prophylaxis per orthopedics Resume home meds Consult cardiology Past Medical History Past Medical History: GERD/Reflux, Hearing Disorder / Deafness, Hypertension, Osteoarthritis (OA), Pulmonary Embolus (PE), Thyroid Disorder Additional Past Medical History / Comment(s): 12-07-14 admitted to [facility] with c/o chest pain. other hx:hiatal hernia, PE AFTER KNEE SX, INCONT OF URINE, DEAF RT EAR [place] LT WEARS HEARING AID,UPPER DENTURE AND WEARS GLASSES TO READ. 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 Past Surgical History: Cholecystectomy, Heart Catheterization, Hysterectomy, Joint Replacement, Tonsillectomy Additional Past Surgical History / Comment(s): cochlear implant, acoustic tumor removed rt ear 2010, egd/colonoscopy, rt carpal tunnel, rt knee replacement, SHAMEKA CATARACTS Past Anesthesia/Blood Transfusion Reactions: No Reported Reaction Past Psychological History: Anxiety, Depression Smoking Status: Never smoker Past Alcohol Use History: None Reported Past Drug Use History: None Reported - Past Family History Father Family Medical History: Dementia Mother Family Medical History: Cancer, Hypertension Additional Family Medical History / Comment(s): from lung cancer Brother(s) Family Medical History: Diabetes Mellitus Sister(s) Family Medical History: Cancer Additional Family Medical History / Comment(s): BRAIN Son(s) Family Medical History: Coronary Artery Disease (CAD) Medications and Allergies Home Medications Medication Instructions Recorded Confirmed Type ALPRAZolam 1 mg PO BID PRN 12/07/14 10/08/22 History Levothyroxine Sodium [Synthroid] 25 mcg PO DAILY 05/13/18 10/08/22 History Ascorbic Acid [Vitamin C] 500 mg PO DAILY 10/08/22 10/08/22 History Cholecalciferol [Vitamin D3 (25 25 mcg PO DAILY 10/08/22 10/08/22 History Mcg = 1000 Iu)] Docusate [Colace] 100 mg PO DAILY PRN 10/08/22 10/08/22 History Ibuprofen [Motrin] 800 mg PO Q8H PRN 10/08/22 10/08/22 History Ketoconazole 2% Cream [Nizoral 2%] 1 applic TOPICAL BID PRN 10/08/22 10/08/22 History Losartan-Hctz 50-12.5 mg [Hyzaar 1 tab PO DAILY 10/08/22 10/08/22 History 50-12.5] Magnesium 250 mg PO DAILY 10/08/22 10/08/22 History Nitrofurantoin Monohyd/M-Cryst 100 mg PO Q12HR 10/08/22 10/08/22 History [Macrobid] Nystatin 100,000 Unit/gm Powd 1 applic TOPICAL TID PRN 10/08/22 10/08/22 History [Mycostatin Powder] Nystatin 100,000Unit/gm Cream 1 applic TOPICAL BID PRN 10/08/22 10/08/22 History [Mycostatin Cream] oxyBUTYnin chloride [Ditropan] 5 mg PO TID PRN 10/08/22 10/08/22 History Allergies Allergy/AdvReac Type Severity Reaction Status Date / Time ciprofloxacin [From Cipro] Allergy Rash/Hives/ Verified 10/08/22 21:00 Nausea ciprofloxacin HCl Allergy Rash/Hives/ Verified 10/08/22 21:00 [From Cipro] Nausea doxycycline Allergy Rash/Hives Verified 10/08/22 21:00 esomeprazole magnesium Allergy Rash/Hives Verified 10/08/22 21:00 [From Vimovo] fesoterodine [From Toviaz] Allergy BLURRED Verified 10/08/22 21:00 VISION fluconazole Allergy Rash/Hives Verified 10/08/22 21:00 hydrocodone bitartrate Allergy Hallucinati Verified 10/08/22 21:00 [From Vicodin] ons naproxen [From Vimovo] Allergy Rash/Hives Verified 10/08/22 21:00 penicillin G Allergy Rash/Hives Verified 10/08/22 21:00 sulfamethoxazole Allergy Rash/Hives Verified 10/08/22 21:00 [From Bactrim] terbinafine Allergy Rapid Verified 10/08/22 21:00 Heart Rate tramadol Allergy HEADACHE, Verified 10/08/22 21:00 INCREASED PAIN trimethoprim [From Bactrim] Allergy Rash/Hives Verified 10/08/22 21:00 hydrocodone [From [place]] AdvReac HEADACHE Verified 10/08/22 21:00 levofloxacin [From Levaquin] AdvReac Itching Verified 10/08/22 21:00 mirabegron [From Myrbetriq] AdvReac HEADACHE/BLURRED Verified 10/08/22 21:00 VISION phenazopyridine AdvReac Itching Verified 10/08/22 21:00 Physical Exam Vitals: Vital Signs Temp Pulse Resp BP Pulse Ox 10/09/22 08:20 99 F 96 20 134/81 94 L 10/09/22 01:39 96 20 134/81 94 L 10/08/22 17:49 99 F 88 15 145/72 93 L Intake and Output 10/08/22 10/09/22 10/09/22 22:59 06:59 14:59 Other: Weight 64.41 kg Results CBC & Chem 7: 10/08/22 17:49 10/09/22 04:54 Labs: Abnormal Lab Results - Last 24 Hours (Table) 10/08/22 10/08/22 10/09/22 Range/Units 17:49 17:49 04:54 WBC 11.4 H (3.8-10.6) k/uL Neutrophils # 10.2 H (1.3-7.7) k/uL Lymphocytes # 0.6 L (1.0-4.8) k/uL Sodium 122 L 126 L (137-145) mmol/L Potassium 2.6 L* 3.4 L (3.5-5.1) mmol/L Chloride 92 L (98-107) mmol/L Creatinine 0.35 L (0.52-1.04) mg/dL Glucose 134 H (74-99) mg/dL
--- NOTE | 2022-10-09 13:27 | P.CRDCN ---
History of Present Illness Consult date: 10/09/22 History of present illness: History of present illness: This is an 89-year-old female patient last seen by Dr. 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 We have been asked to evaluate the patient for abnormal EKG. Patient came into the hospital after having a fall. Patient states she tripped on a rug in the bathroom and landed on her left side has been found to have a pubic ramus fracture for which she will be seen by orthopedics. Patient denies having any symptoms prior to the fall. No lightheadedness or dizziness. She was found to have a potassium of 2.6 and was replaced the patient states she has not been eating or drinking very well ever since she had her cochlear implant done on February 27. She states she occasionally has chest pain either on the right breast symptoms on the left. No lower extremity edema. Patient is seen today in the emergency center waiting for a bed on the cardiac stepdown unit. EKG sinus rhythm with nonspecific changes Chest x-ray: No evidence of acute fracture. Low lung volumes with generalized hazy appearance which could represent atelectasis versus pulmonary edema( Pelvis X-Rays Revealed Right. Inferior Pubic Ramus Irregularities concerning for Fracture. Mild Hip Osteoarthrosis. W BC 11.4, hemoglobin 12, platelet count 179. Sodium 122 with repeat 126, potassium 2.6 and repeat 3.4. BUN 15 creatinine 0.35. Troponin negative 1. Home cardiac medications: Losartan hydrochlorothiazide 5012 0.5 mg 1 daily, magnesium daily, levothyroxine 25 g daily Review Of Systems: At the time of my evaluation: Constitutional: No fever, no chills. No weakness, fatigue or lethargy. EENT: No headache. No dizziness. Lungs: No shortness of breath, cough, no sputum production. No wheezing. Cardiovascular: No chest pain, no lower extremity edema. No palpitations. No paroxysmal nocturnal dyspnea. No orthopnea. No lightheadedness or dizziness. No syncopal episodes. Abdominal: No abdominal pain. No nausea, vomiting. No diarrhea. No constipation. No bloody or tarry stools. Genitourinary: No dysuria.. No urinary retention. Musculoskeletal: No myalgias. No muscle weakness, no frequent falls. No back pain. No neck pain. Integumentary: No wounds. No rash. No unusual bruising. Neurologic: No aphasia. No facial droop. No change in mentation. No head injury. No headache. Physical examination: Gen: This is a ill-appearing 89-year-old female. She is resting on ER stretcher. VS: reviewed, blood pressure 134/81, heart rate 96, telemetry sinus rhythm. HEENT: Head is atraumatic, normocephalic. Pupils equal, round. Sclerae is anicteric. NECK: Supple. No JVD. . LUNGS: Clear to auscultation. No wheezes or rhonchi. No intercostal retractions. HEART: Regular rate and rhythm. 2/6 systolic murmur at the base. ABDOMEN: Soft No tenderness. EXTREMITIES: No pedal edema. No calf tenderness. NEUROLOGICAL: Patient is awake, alert and oriented x3. Assessment: Abnormal EKG secondary to hypokalemia, hyponatremia Electrolyte abnormalities with hypokalemia and hyponatremia Hypertension Trip and fall with pubic ramus fracture Hypertension History of pulmonary embolism Hypothyroidism Plan: Continue patient's home cardiac medications Obtain TSH and free T4 Obtain 2-D echocardiogram and Doppler study to assess cardiac structure and function Further recommendations to follow based upon clinical course Thank you kindly for this consultation. Nurse practitioner note has been reviewed, I agree with documented findings and plan of care. Patient was seen and examined. Past Medical History Past Medical History: GERD/Reflux, Hearing Disorder / Deafness, Hypertension, Osteoarthritis (OA), Pulmonary Embolus (PE), Thyroid Disorder Additional Past Medical History / Comment(s): 12-07-14 admitted to [facility] with c/o chest pain. other hx:hiatal hernia, PE AFTER KNEE SX, INCONT OF URINE, DEAF RT EAR [facility] WEARS HEARING AID,UPPER DENTURE AND WEARS GLASSES TO READ. 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 Past Surgical History: Cholecystectomy, Heart Catheterization, Hysterectomy, Joint Replacement, Tonsillectomy Additional Past Surgical History / Comment(s): cochlear implant, acoustic tumor removed rt ear 2010, egd/colonoscopy, rt carpal tunnel, rt knee replacement, SHAMEKA CATARACTS Past Anesthesia/Blood Transfusion Reactions: No Reported Reaction Past Psychological History: Anxiety, Depression Smoking Status: Never smoker Past Alcohol Use History: None Reported Past Drug Use History: None Reported - Past Family History Father Family Medical History: Dementia Mother Family Medical History: Cancer, Hypertension Additional Family Medical History / Comment(s): from lung cancer Brother(s) Family Medical History: Diabetes Mellitus Sister(s) Family Medical History: Cancer Additional Family Medical History / Comment(s): BRAIN Son(s) Family Medical History: Coronary Artery Disease (CAD) Medications and Allergies Home Medications Medication Instructions Recorded Confirmed Type ALPRAZolam 1 mg PO BID PRN 12/07/14 10/08/22 History Levothyroxine Sodium [Synthroid] 25 mcg PO DAILY 05/13/18 10/08/22 History Ascorbic Acid [Vitamin C] 500 mg PO DAILY 10/08/22 10/08/22 History Cholecalciferol [Vitamin D3 (25 25 mcg PO DAILY 10/08/22 10/08/22 History Mcg = 1000 Iu)] Docusate [Colace] 100 mg PO DAILY PRN 10/08/22 10/08/22 History Ibuprofen [Motrin] 800 mg PO Q8H PRN 10/08/22 10/08/22 History Ketoconazole 2% Cream [Nizoral 2%] 1 applic TOPICAL BID PRN 10/08/22 10/08/22 History Losartan-Hctz 50-12.5 mg [Hyzaar 1 tab PO DAILY 10/08/22 10/08/22 History 50-12.5] Magnesium 250 mg PO DAILY 10/08/22 10/08/22 History Nitrofurantoin Monohyd/M-Cryst 100 mg PO Q12HR 10/08/22 10/08/22 History [Macrobid] Nystatin 100,000 Unit/gm Powd 1 applic TOPICAL TID PRN 10/08/22 10/08/22 History [Mycostatin Powder] Nystatin 100,000Unit/gm Cream 1 applic TOPICAL BID PRN 10/08/22 10/08/22 History [Mycostatin Cream] oxyBUTYnin chloride [Ditropan] 5 mg PO TID PRN 10/08/22 10/08/22 History Allergies Allergy/AdvReac Type Severity Reaction Status Date / Time ciprofloxacin [From Cipro] Allergy Rash/Hives/ Verified 10/08/22 21:00 Nausea ciprofloxacin HCl Allergy Rash/Hives/ Verified 10/08/22 21:00 [From Cipro] Nausea doxycycline Allergy Rash/Hives Verified 10/08/22 21:00 esomeprazole magnesium Allergy Rash/Hives Verified 10/08/22 21:00 [From Vimovo] fesoterodine [From Toviaz] Allergy BLURRED Verified 10/08/22 21:00 VISION fluconazole Allergy Rash/Hives Verified 10/08/22 21:00 hydrocodone bitartrate Allergy Hallucinati Verified 10/08/22 21:00 [From Vicodin] ons naproxen [From Vimovo] Allergy Rash/Hives Verified 10/08/22 21:00 penicillin G Allergy Rash/Hives Verified 10/08/22 21:00 sulfamethoxazole Allergy Rash/Hives Verified 10/08/22 21:00 [From Bactrim] terbinafine Allergy Rapid Verified 10/08/22 21:00 Heart Rate tramadol Allergy HEADACHE, Verified 10/08/22 21:00 INCREASED PAIN trimethoprim [From Bactrim] Allergy Rash/Hives Verified 10/08/22 21:00 hydrocodone [From [place]] AdvReac HEADACHE Verified 10/08/22 21:00 levofloxacin [From Levaquin] AdvReac Itching Verified 10/08/22 21:00 mirabegron [From Myrbetriq] AdvReac HEADACHE/BLURRED Verified 10/08/22 21:00 VISION phenazopyridine AdvReac Itching Verified 10/08/22 21:00 Physical Exam Vitals: Vital Signs Temp Pulse Resp BP Pulse Ox 10/09/22 01:39 96 20 134/81 94 L 10/08/22 17:49 99 F 88 15 145/72 93 L Intake and Output 10/08/22 10/09/22 10/09/22 22:59 06:59 14:59 Other: Weight 64.41 kg Results 10/08/22 17:49 10/09/22 04:54 Cardiac Enzymes 10/08/22 Range/Units 21:10 Troponin I 0.013 (0.000-0.034) ng/mL Coagulation 10/08/22 Range/Units 17:49 PT 10.4 (9.0-12.0) sec APTT 23.6 (22.0-30.0) sec CBC 10/08/22 Range/Units 17:49 WBC 11.4 H (3.8-10.6) k/uL RBC 4.26 (3.80-5.40) m/uL Hgb 12.0 (11.4-16.0) gm/dL Hct 36.1 (34.0-46.0) % Plt Count 179 (150-450) k/uL Comprehensive Metabolic Panel 10/08/22 10/09/22 Range/Units 17:49 04:54 Sodium 122 L 126 L (137-145) mmol/L Potassium 2.6 L* 3.4 L (3.5-5.1) mmol/L Chloride 92 L (98-107) mmol/L Carbon Dioxide 24 (22-30) mmol/L BUN 15 (7-17) mg/dL Creatinine 0.35 L (0.52-1.04) mg/dL Glucose 134 H (74-99) mg/dL Calcium 8.5 (8.4-10.2) mg/dL Current Medications Generic Name Dose Route Start Last Admin Trade Name Freq PRN Reason Stop Dose Admin Acetaminophen 650 mg 10/08/22 21:09 Acetaminophen Tab 325 Mg Tab PO Q6HR PRN Mild Pain or Fever > 100.5 Sodium Chloride 1,000 mls @ 20 mls/hr 10/08/22 21:15 10/09/22 01:18 Saline 0.9% IV 20 mls/hr .Q24H MARIXA Administration Morphine Sulfate 4 mg 10/08/22 21:09 Morphine Sulfate 4 Mg/Ml Syringe IV Q4HR PRN Severe Pain (Scale 7 to 10) Naloxone HCl 0.2 mg 10/08/22 21:09 Naloxone 0.4 Mg/Ml 1 Ml Vial IV Q2M PRN Opioid Reversal Intake and Output 10/08/22 10/09/22 10/09/22 22:59 06:59 14:59 Other: Weight 64.41 kg 10/08/22 17:49 10/09/22 04:54
--- NOTE | 2022-10-09 23:02 | CT ---
EXAMINATION TYPE: CT pelvis wo con DATE OF EXAM: 10/09/2022 COMPARISON: None HISTORY: pelvic fx CT DLP: 425 mGycm Automated exposure control for dose reduction was used. Contrast: None Technique: Axial images 3 mm thick sections. FINDINGS: Sacroiliac joints are normal. Postsurgical changes are in the posterior lower spine within the field- of-view. Facet degenerative changes are present. Femoral heads articulate with the acetabulum. Symphysis appears normal. There is a fracture of the inferior mid pubic ramus. Subtle lateral tissue ramus fractures evident. T his is at or adjacent to the anterior column. There may be a subtle fracture of the medial wall of the acetabulum. Series 203, image 57. Urinary bladder appears unremarkable. Sigmoid colon and rectum appear unremarkable. Small bowel loops within the [id number] appear unremarkable. Uterus and ovaries are not identified. IMPRESSION: 1. MID PUBIC RAMUS FRACTURE WITH A LATERAL ISCHIO RAMUS FRACTURE NEAR THE ANTERIOR COLUMN. A SUBTLE A CETABULAR FRACTURE WITHIN THE MID TO INFERIOR PORTION MAY BE PRESENT ON THE RIGHT.
[2022-10-10] MEDS: ONDANSETRON 4 MG/2 ML VIAL IVP PRN (04:09)
[2022-10-10] MEDS: MORPHINE SULFATE 4 MG/ML SYRINGE IV PRN ×2 (04:09→20:19)
[2022-10-10] MEDS: LEVOTHYROXINE 25 MCG TAB PO SCH (06:11)
--- NOTE | 2022-10-10 08:30 | P.PN ---
Subjective Progress Note Date: 10/10/22 Principal diagnosis: Right pubic rami fracture This is an 89 year-old female who we have been following for a pubic rami fracture on the right. The patient was evaluated at the bedside today. The patient denies nausea, vomiting, abdominal pain, shortness of breath, and chest pain this morning. She states her pain is moderately controlled at this time. The patient has not been up with physical therapy. Objective - Vital Signs Vital signs: Vital Signs Temp 98.5 F 10/10/22 04:00 Pulse 68 10/10/22 04:00 Resp 18 10/10/22 04:00 BP 125/65 10/10/22 04:00 Pulse Ox 98 10/10/22 04:00 FiO2 Intake & Output 10/09/22 10/10/22 10/10/22 18:59 06:59 18:59 Intake Total 118 110 Output Total 425 0 Balance -307 110 Weight 64.41 kg Intake: Oral 118 110 Output: Urine 425 0 Straight 425 Other: Voiding Method Bedpan # Voids 1 - Exam The patient does not appear in acute distress. Alert and orientated x3. ROM of the hip was not performed today due to severe pain this morning. Calf is soft and nontender. Good foot and ankle motion without difficulty. Sensation and circulatory status is intact. - Labs CBC & Chem 7: 10/10/22 07:52 10/10/22 07:52 Assessment and Plan (1) Pelvic fracture Current Visit: Yes Status: Acute Code(s): S32.9XXA - FRACTURE OF UNSP PARTS OF LUMBOSACRAL SPINE AND PELVIS, INIT SNOMED Code(s): 34352807 (2) Fall Current Visit: No Status: Acute Code(s): W19.XXXA - UNSPECIFIED FALL, INITIAL ENCOUNTER SNOMED Code(s): 8920089 Plan: 1. Continue pain control, Tylenol and Morphine as needed. She has multiple allergies/sensitivities. 2. DVT prophylaxis with Aspirin 81 mg daily. 3. Start physical therapy and ambulation, weightbearing as tolerated. 4. Anticipate discharge to skilled rehab in the next 1-2 days.
[2022-10-10 08:42] LABS: Basophils % (A) 0 %; Eosinophils # (A) 0.1 k/uL (0-0.7); Eosinophils % (A) 1 %; HCT 35.1 % (34.0-46.0); HGB 11.2 gm/dL (11.4-16.0); Lymphocytes % (A) 10 %; MCH 27.5 pg (25.0-35.0); MCV 85.9 fL (80.0-100.0); Mean Platelet Volume 8.7; Monocytes # (A) 0.4 k/uL (0-1.0); Monocytes % (A) 4 %; Neutrophils # (A) 8.1 k/uL (1.3-7.7); Neutrophils % (A) 82 %; Platelet Count 181 k/uL (150-450); RBC 4.08 m/uL (3.80-5.40); RDW 15.8 % (11.5-15.5); WBC 9.9 k/uL (3.8-10.6)
[2022-10-10 08:59] LABS: ALT 22 U/L (4-34); AST 25 U/L (14-36); African American GFR (CKD) >90 (>60 ml/min/1.73 sqM); Alkaline Phosphatase 91 U/L (38-126); Anion Gap 5 mmol/L; Blood Urea Nitrogen 8 mg/dL (7-17); Calcium 8.4 mg/dL (8.4-10.2); Carbon Dioxide 27 mmol/L (22-30); Chloride 97 mmol/L (98-107); Glucose 164 mg/dL (74-99); Non-African American GFR(CKD) >90 (>60 ml/min/1.73 sqM); Potassium 3.1 mmol/L (3.5-5.1); Sodium 129 mmol/L (137-145); Total Protein 5.2 g/dL (6.3-8.2)
[2022-10-10] MEDS ORDERED: ASPIRIN 81 MG PO SCH (09:00)
[2022-10-10] MEDS: MAGNESIUM OXIDE 400 MG TAB PO SCH (09:12)
[2022-10-10] MEDS: ACETAMINOPHEN TAB 325 MG TAB PO PRN ×2 (09:12→17:14)
[2022-10-10] MEDS: CHOLECALCIFEROL 25 MCG (1000 IU) TABLET PO SCH (09:12)
[2022-10-10] MEDS: ASCORBIC ACID 500 MG TAB PO SCH (09:12)
[2022-10-10] MEDS: LOSARTAN-HCTZ 50-12.5 MG 1 EACH TAB PO SCH (09:14)
[2022-10-10] MEDS ORDERED: Potassium Replacement Protocol 1 EACH MISC MISCELLANE PRN ×2 (09:34→16:52)
[2022-10-10] MEDS ORDERED: MAG HYDROX/AL HYDROX/SIMETH 30 ML CUP PO PRN (11:49)
[2022-10-10] MEDS: PANTOPRAZOLE 40 MG/10 ML VIAL IVP SCH ×2 (12:05→20:18)
--- NOTE | 2022-10-10 12:18 | CA ---
Transthoracic Echo Report Name: Angeline Shafer Age: 89 Gender: F : 1930 Exam Date: 10/10/2022 08:27 Exam Location: [facility] Ht (in): 59 Wt (lb): 142 Ordering Physician: Kaley Farrell Attending/Referring Phys: [id number], [facility] Technician Luis Montoya Procedure CPT: Indications: LVF Cardiac Hx: Technical Quality: Fair Contrast 1: Total Dose (mL): Contrast 2: Total Dose (mL): MEASUREMENTS (Male / Female) Normal Values 2D ECHO LV Diastolic Diameter PLAX 3.4 cm 4.2 - 5.9 / 3.9 - 5.3 cm LV Systolic Diameter PLAX 2.4 cm IVS Diastolic Thickness 1.2 cm 0.6 - 1.0 / 0.6 - 0.9 cm LVPW Diastolic Thickness 1.1 cm 0.6 - 1.0 / 0.6 - 0.9 cm LV Relative Wall Thickness 0.7 RV Internal Dim ED PLAX 1.9 cm LVOT Diameter 2.0 cm Aortic Root Diameter 2.8 cm LA Systolic Diameter LX 2.8 cm 3.0 - 4.0 / 2.7 - 3.8 cm LV Diastolic Volume MOD BP 28.8 cm??? 67 - 155 / 56 - 104 cm??? LV Systolic Volume MOD BP 8.9 cm??? 22 - 58 / 19 - 49 cm??? LV Ejection Fraction MOD BP 69.2 % >= 55 % LV Diastolic Volume MOD 4C 29.1 cm??? LV Systolic Volume MOD 4C 6.9 cm??? LV Ejection Fraction MOD 4C 76.3 % LV Diastolic Length 4C 5.8 cm LV Systolic Length 4C 4.3 cm LV Diastolic Volume MOD 2C 27.2 cm??? LV Systolic Volume MOD 2C 10.0 cm??? LV Ejection Fraction MOD 2C 63.3 % LV Diastolic Length 2C 5.5 cm LV Systolic Length 2C 4.9 cm LA Volume 22.8 cm??? 18 - 58 / 22 - 52 cm??? Ascending Aorta Diameter 3.0 cm DOPPLER AV Peak Velocity 179.3 cm/s AV Peak Gradient 12.9 mmHg AV Mean Velocity 128.5 cm/s AV Mean Gradient 7.5 mmHg AV Velocity Time Integral 36.0 cm AI Peak Velocity 374.7 cm/s AI Peak Gradient 56.2 mmHg AI Pressure Half Time 496.7 ms LVOT Peak Velocity 87.8 cm/s LVOT Peak Gradient 3.1 mmHg AV Area Cont Eq pk 1.5 cm??? MV Peak Velocity 116.6 cm/s MV Peak Gradient 5.4 mmHg MV Mean Velocity 57.8 cm/s MV Mean Gradient 1.7 mmHg MV Velocity Time Integral 29.0 cm MR Peak Velocity 354.4 cm/s MR Peak Gradient 50.2 mmHg Mitral E Point Velocity 68.6 cm/s Mitral A Point Velocity 104.2 cm/s Mitral E to A Ratio 0.7 MV Deceleration Time 104.6 ms MV E' Velocity 5.3 cm/s Mitral E to MV E' Ratio 12.9 TR Peak Velocity 252.4 cm/s TR Peak Gradient 25.5 mmHg Right Ventricular Systolic Press 38.5 mmHg FINDINGS Left Ventricle Normal LV size and wall thickness. Left ventricular ejection fraction is estimated at50-55 %. Right Ventricle Normal right ventricular size. RVSP= 56mmhg Right Atrium Normal right atrial size. Left Atrium Normal left atrial size. Mitral Valve Structurally normal mitral valve. Mild MR. Aortic Valve Mild AV calcfication. Estimated AV Area= 1.6cm2 Tricuspid Valve Structurally normal tricuspid valve. Mild to moderate TR Pulmonic Valve Pulmonic valve not well visualized. Mild PI. Pericardium Small posterior pericardial effusion. Aorta Normal size aortic root and proximal ascending aorta. CONCLUSIONS Normal LV size and systolic function Previewed by: Dr. Mynor Pina MD (Electronically Signed) Final Date: 10 October 2022 12:17
--- NOTE | 2022-10-10 14:01 | P.PN ---
Subjective Progress Note Date: 10/10/22 History of present illness: This is an 89-year-old female patient last seen by Dr. 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 We have been asked to evaluate the patient for abnormal EKG. Patient came into the hospital after having a fall. Patient states she tripped on a rug in the bathroom and landed on her left side has been found to have a pubic ramus fracture for which she will be seen by orthopedics. Patient denies having any symptoms prior to the fall. No lightheadedness or dizziness. She was found to have a potassium of 2.6 and was replaced the patient states she has not been eating or drinking very well ever since she had her cochlear implant done on February 27. She states she occasionally has chest pain either on the right breast symptoms on the left. No lower extremity edema. Patient is seen today in the emergency center waiting for a bed on the cardiac stepdown unit. EKG sinus rhythm with nonspecific changes Chest x-ray: No evidence of acute fracture. Low lung volumes with generalized hazy appearance which could represent atelectasis versus pulmonary edema( Pelvis X-Rays Revealed Right. Inferior Pubic Ramus Irregularities concerning for Fracture. Mild Hip Osteoarthrosis. W BC 11.4, hemoglobin 12, platelet count 179. Sodium 122 with repeat 126, potassium 2.6 and repeat 3.4. BUN 15 creatinine 0.35. Troponin negative 1. Home cardiac medications: Losartan hydrochlorothiazide 5012 0.5 mg 1 daily, magnesium daily, levothyroxine 25 g daily 10/10 Patient is seen today in follow-up. She is concerned about the CAT scan that was done on her pelvis. She denies having any chest pain or shortness of breath at this time. She is found sitting up in a chair. The blood work reveals sodium 129, potassium 3.1, creatinine 0.38. TSH 1.29. Echocardiogram reveals normal LV size and systolic function. Physical examination: Gen: This is a ill-appearing 89-year-old female. She is resting on recliner. VS: reviewed HEENT: Head is atraumatic, normocephalic. Pupils equal, round. Sclerae is anicteric. NECK: Supple. No JVD. . LUNGS: Clear to auscultation. No wheezes or rhonchi. No intercostal retractions. HEART: Regular rate and rhythm. 2/6 systolic murmur at the base. EXTREMITIES: No pedal edema. NEUROLOGICAL: Patient is awake, alert and oriented x3. Assessment: Abnormal EKG secondary to hypokalemia, hyponatremia Electrolyte abnormalities with hypokalemia and hyponatremia Hypertension Trip and fall with pubic ramus fracture Hypertension History of pulmonary embolism Hypothyroidism Plan: Continue patient's home cardiac medications Cardiology will sign off and follow on an as-needed basis. Please reconsult for any new concerns. Patient may follow-up with Dr. Dr. Diamond in 1-2 weeks. Nurse practitioner note has been reviewed, I agree with documented findings and plan of care. Patient was seen and examined. Objective - Vital Signs Vital signs: Vital Signs Temp 97.5 F L 10/10/22 08:10 Pulse 94 10/10/22 08:10 Resp 18 10/10/22 08:10 BP 118/60 10/10/22 08:10 Pulse Ox 98 10/10/22 08:10 FiO2 Intake & Output 10/09/22 10/10/22 10/10/22 18:59 06:59 18:59 Intake Total 118 110 540 Output Total 425 0 Balance -307 110 540 Weight 64.41 kg Intake: Oral 118 110 540 Output: Urine 425 0 Straight 425 Other: Voiding Method Bedpan # Voids 1 - Labs CBC & Chem 7: 10/10/22 07:52 10/10/22 07:52 Labs: Abnormal Lab Results - Last 24 Hours (Table) 10/10/22 10/10/22 Range/Units 07:52 07:52 Hgb 11.2 L (11.4-16.0) gm/dL RDW 15.8 H (11.5-15.5) % Neutrophils # 8.1 H (1.3-7.7) k/uL Sodium 129 L (137-145) mmol/L Potassium 3.1 L (3.5-5.1) mmol/L Chloride 97 L (98-107) mmol/L Creatinine 0.38 L (0.52-1.04) mg/dL Glucose 164 H (74-99) mg/dL Total Protein 5.2 L (6.3-8.2) g/dL Albumin 3.0 L (3.5-5.0) g/dL
--- NOTE | 2022-10-10 14:09 | P.PN ---
Subjective Progress Note Date: 10/10/22 patient is 89-year-old lady with past medical significant for hypothyroidism, hypertension presented to the ER because of a fall. She stated that she fell 3 days ago. Patient has been having pain in her right hip ever since that. Patient unable to bear weight on her right hip. Denies any chest pain or shortness of breath and nausea, vomiting or abdominal pain. Patient walks with a walker at home and has been falling frequently. Because of the fall, patient came to the ER Initial lab work done in the ER showed up to 0.4, hemoglobin 12, sodium 122, potassium 2.6, BUN 15, troponin was negative EKG done showed ST depression in lead 1, aVL, V4 and V5 and V6 CT of the head and cervical spine done, showed no acute cranial process, no cervical fractures, no cervical spine fracture X-ray of the hip showed right superior inferior pubic ramus fractur 10/10. Patient seen and examined. Patient complaining a lot of heartburn, complaining of nausea as well REVIEW OF SYSTEMS: CONSTITUTIONAL: No fever, no malaise,. CARDIOVASCULAR: No chest pain, no palpitations, no syncope. PULMONARY: No shortness of breath, no cough, GASTROINTESTINAL: As mentioned above NEUROLOGICAL: No headaches, no weakness, PHYSICAL EXAMINATION: GENERAL: The patient is alert and oriented x3, not in any acute distress. Well developed, well nourished. HEENT: Pupils are round and equally reacting to light. EOMI. No scleral icterus. No conjunctival pallor. Normocephalic, atraumatic. No pharyngeal erythema. No thyromegaly. CARDIOVASCULAR: S1 and S2 present. No murmurs, rubs, or gallops. PULMONARY: Chest is clear to auscultation, no wheezing or crackles. ABDOMEN: Soft, nontender, nondistended, normoactive bowel sounds. No palpable organomegaly. MUSCULOSKELETAL: No joint swelling or deformity. EXTREMITIES: No cyanosis, clubbing, or pedal edema. NEUROLOGICAL: Gross neurological examination did not reveal any focal deficits. SKIN: No rashes. Assessment and plan Pubic fracture Hyponatremia Hypokalemia Fall Hypertension Hypothyroidism Abnormal EKG GERD History of osteoarthritis Monitor vital signs Monitor CBC Monitor CMP Continue telemetry monitoring Potassium this morning is 3.1, replacement ordered Ordered Protonix 40 mg twice a day and Maalox Follow-up on 2-D echo Continue pain management per orthopedics PT and OT consulted Labs and medication were reviewed.. Continue same treatment. Continue with symptomatic treatment. Resume home medication. Monitor labs and vitals. DVT and GI prophylaxis. Further recommendations as per clinical course of the patient Objective - Vital Signs Vital signs: Vital Signs Temp 97.5 F L 10/10/22 08:10 Pulse 94 10/10/22 08:10 Resp 18 10/10/22 08:10 BP 118/60 10/10/22 08:10 Pulse Ox 98 10/10/22 08:10 FiO2 Intake & Output 10/09/22 10/10/22 10/10/22 18:59 06:59 18:59 Intake Total 118 110 540 Output Total 425 0 Balance -307 110 540 Weight 64.41 kg Intake: Oral 118 110 540 Output: Urine 425 0 Straight 425 Other: Voiding Method Bedpan # Voids 1 - Labs CBC & Chem 7: 10/10/22 07:52 10/10/22 07:52 Labs: Abnormal Lab Results - Last 24 Hours (Table) 10/10/22 10/10/22 Range/Units 07:52 07:52 Hgb 11.2 L (11.4-16.0) gm/dL RDW 15.8 H (11.5-15.5) % Neutrophils # 8.1 H (1.3-7.7) k/uL Sodium 129 L (137-145) mmol/L Potassium 3.1 L (3.5-5.1) mmol/L Chloride 97 L (98-107) mmol/L Creatinine 0.38 L (0.52-1.04) mg/dL Glucose 164 H (74-99) mg/dL Total Protein 5.2 L (6.3-8.2) g/dL Albumin 3.0 L (3.5-5.0) g/dL
[2022-10-10] MEDS: POTASSIUM CHLORIDE ER 20 MEQ TAB.ER PO SCH (17:00)
[2022-10-10] MEDS: POTASSIUM BICARBONATE/CIT AC 20 MEQ TABLET.EFF NG-TUBE SCH ×2 (18:22→20:19)
[2022-10-10] MEDS: SODIUM CHLORIDE 0.9% 1,000 ML IV SCH (20:19)
[2022-10-11] MEDS: MORPHINE SULFATE 4 MG/ML SYRINGE IV PRN ×2 (01:12→07:55)
[2022-10-11] MEDS: LEVOTHYROXINE 25 MCG TAB PO SCH (06:39)
[2022-10-11] MEDS: ONDANSETRON 4 MG/2 ML VIAL IVP PRN (06:49)
[2022-10-11 07:53] VITALS: PULSE 72; RESP 16; TEMP 97.8
[2022-10-11] MEDS: PANTOPRAZOLE 40 MG/10 ML VIAL IVP SCH (07:55)
[2022-10-11] MEDS: ACETAMINOPHEN TAB 325 MG TAB PO PRN (07:56)
[2022-10-11] MEDS: CHOLECALCIFEROL 25 MCG (1000 IU) TABLET PO SCH (07:56)
[2022-10-11] MEDS: MAGNESIUM OXIDE 400 MG TAB PO SCH (07:56)
[2022-10-11] MEDS: ASCORBIC ACID 500 MG TAB PO SCH (07:56)
[2022-10-11] MEDS: LOSARTAN-HCTZ 50-12.5 MG 1 EACH TAB PO SCH (07:56)
[2022-10-11 10:01] LABS: African American GFR (CKD) >90 (>60 ml/min/1.73 sqM); Anion Gap 5 mmol/L; Blood Urea Nitrogen 13 mg/dL (7-17); Calcium 8.4 mg/dL (8.4-10.2); Carbon Dioxide 26 mmol/L (22-30); Chloride 94 mmol/L (98-107); Glucose 143 mg/dL (74-99); Magnesium 1.9 mg/dL (1.6-2.3); Non-African American GFR(CKD) >90 (>60 ml/min/1.73 sqM); Potassium 3.8 mmol/L (3.5-5.1); Sodium 125 mmol/L (137-145)
[2022-10-11] MEDS ORDERED: NYSTATIN 100,000 UNIT/GM POWD 15 GM TOPICAL SCH (11:30)
[2022-10-11 11:52] VITALS: BP 140/74
--- NOTE | 2022-10-11 12:14 | P.DS ---
Providers Date of admission: 10/08/22 21:09 Expected date of discharge: 10/11/22 Attending physician: Martina Lee DO Consults: 10/08/22 21:09 Consult Physician Routine Consulting Provider: Roby Keller Consult Reason/Comments: abnormal ekg Do you want consulting provider notified?: Yes Consult Physician Routine Consulting Provider: Veda Lorenz Consult Reason/Comments: medicine consult Do you want consulting provider notified?: Yes Primary care physician: Juan A Dey - Discharge Diagnosis(es) (1) Pelvic fracture Current Visit: Yes Status: Acute (2) Fall Current Visit: No Status: Acute Hospital Course: This is an 89 year old female who presented to the hospital post fall at home and sustained a right pubic rami fracture. The patient is doing well. Labs and vital signs are stable on the day of discharge. On the day of discharge the patient's pain is moderately controlled. Pain on range of motion to the right leg. The patient has full foot and ankle motion without difficulty or pain. Neurovascular status to the right lower extremity is intact. The patient is discharged to skilled rehab in stable condition. Patient Condition at Discharge: Stable Plan - Discharge Summary Discharge Rx Participant: No New Discharge Prescriptions: New Acetaminophen [Tylenol Extra Strength] 500 mg PO Q6HR PRN #30 tablet PRN Reason: Pain No Action ALPRAZolam 1 mg PO BID PRN PRN Reason: Anxiety Levothyroxine Sodium [Synthroid] 25 mcg PO DAILY Losartan-Hctz 50-12.5 mg [Hyzaar 50-12.5] 1 tab PO DAILY oxyBUTYnin chloride [Ditropan] 5 mg PO TID PRN PRN Reason: BLADDER ISSUES Nystatin 100,000Unit/gm Cream [Mycostatin Cream] 1 applic TOPICAL BID PRN PRN Reason: Rash Docusate [Colace] 100 mg PO DAILY PRN PRN Reason: Constipation Cholecalciferol [Vitamin D3 (25 Mcg = 1000 Iu)] 25 mcg PO DAILY Magnesium 250 mg PO DAILY Ketoconazole 2% Cream [Nizoral 2%] 1 applic TOPICAL BID PRN PRN Reason: Rash Ibuprofen [Motrin] 800 mg PO Q8H PRN PRN Reason: Pain Nitrofurantoin Monohyd/M-Cryst [Macrobid] 100 mg PO Q12HR Nystatin 100,000 Unit/gm Powd [Mycostatin Powder] 1 applic TOPICAL TID PRN PRN Reason: Rash Ascorbic Acid [Vitamin C] 500 mg PO DAILY Discharge Medication List ALPRAZolam 1 mg PO BID PRN 12/07/14 [History] Levothyroxine Sodium [Synthroid] 25 mcg PO DAILY 05/13/18 [History] Ascorbic Acid [Vitamin C] 500 mg PO DAILY 10/08/22 [History] Cholecalciferol [Vitamin D3 (25 Mcg = 1000 Iu)] 25 mcg PO DAILY 10/08/22 [History] Docusate [Colace] 100 mg PO DAILY PRN 10/08/22 [History] Ibuprofen [Motrin] 800 mg PO Q8H PRN 10/08/22 [History] Ketoconazole 2% Cream [Nizoral 2%] 1 applic TOPICAL BID PRN 10/08/22 [History] Losartan-Hctz 50-12.5 mg [Hyzaar 50-12.5] 1 tab PO DAILY 10/08/22 [History] Magnesium 250 mg PO DAILY 10/08/22 [History] Nitrofurantoin Monohyd/M-Cryst [Macrobid] 100 mg PO Q12HR 10/08/22 [History] Nystatin 100,000 Unit/gm Powd [Mycostatin Powder] 1 applic TOPICAL TID PRN 10/08/22 [History] Nystatin 100,000Unit/gm Cream [Mycostatin Cream] 1 applic TOPICAL BID PRN 10/08/22 [History] oxyBUTYnin chloride [Ditropan] 5 mg PO TID PRN 10/08/22 [History] Acetaminophen [Tylenol Extra Strength] 500 mg PO Q6HR PRN #30 tablet 10/11/22 [Rx] Follow up Appointment(s)/Referral(s): Martina Lee DO [Doctor of Osteopathic Medicine] - 4 Weeks Juan A Dey DO [Primary Care Provider] - 1-2 days Activity/Diet/Wound Care/Special Instructions: Weightbearing as tolerated with a walker. Discharge Disposition: TRANSFER TO SNF/ECF
== END 2022-10-11 18:09 | DRG 536 ==
LOC: EC 16:02 → 3SCARD 21:09
PROVIDERS: ADMIT Orthopaedic Surgery Hand Surgery; ATTEND Orthopaedic Surgery Hand Surgery
DX: S32.591A Other specified fracture of right pubis, initial encounter for closed fracture (principal); E87.1 Hypo-osmolality and hyponatremia; E03.9 Hypothyroidism, unspecified; Z66 Do not resuscitate; S50.311A Abrasion of right elbow, initial encounter; I10 Essential (primary) hypertension; K21.9 Gastro-esophageal reflux disease without esophagitis; M16.10 Unilateral primary osteoarthritis, unspecified hip; K44.9 Diaphragmatic hernia without obstruction or gangrene; E87.6 Hypokalemia; F32.A Depression, unspecified; F41.9 Anxiety disorder, unspecified; R29.6 Repeated falls; H91.91 Unspecified hearing loss, right ear; Z79.890 Hormone replacement therapy; Z79.899 Other long term (current) drug therapy; Z91.81 History of falling; Z86.711 Personal history of pulmonary embolism; Z96.651 Presence of right artificial knee joint; Z96.21 Cochlear implant status; Z86.14 Personal history of Methicillin resistant Staphylococcus aureus infection; W01.0XXA Fall on same level from slipping, tripping and stumbling without subsequent striking against object, initial encounter; Y92.002 Bathroom of unspecified non-institutional (private) residence as the place of occurrence of the external cause; Z88.6 Allergy status to analgesic agent; Z88.1 Allergy status to other antibiotic agents; Z88.5 Allergy status to narcotic agent; Z88.0 Allergy status to penicillin; Z88.2 Allergy status to sulfonamides; Z88.8 Allergy status to other drugs, medicaments and biological substances
CPT/HCPCS: 36415; 70450; 71046; 72125; 72192; 73502; 80048; 80053; 83735; 84132; 84295; 84443; 84484; 85025; 85610; 85730; 93005; 93306; 96365; 96366; 96375; 99285